=== PATIENT | male | born 1950 | race Caucasian/White ===

== ENCOUNTER 2018-07-16 22:28 | Emergency (ER) | payer OTHER ==
[~2018-07-16] VITALS: Ht 175.3 cm; Wt 81.6 kg
--- OUTSIDE RECORDS SUMMARY | 2018-07-16 22:36 | XMS REPORT ---
Author Author Gatito Laurent [facility] eClinicalWorks Address Unknown Phone Unavailable Care Team Providers Care Professor Of Kinesiology Name Role Phone Gatito Laurent CP Unavailable Allergies, Adverse Reactions, Alerts Substance Reaction Event Type Niaspan cold chills Non Drug Allergy Tricor Made his back hurt Non Drug Allergy Lipitor Leg Cramps Non Drug Allergy Crestor Leg Cramps Non Drug Allergy Problems Problem Type Condition Code Onset Dates Condition Status Assessment SD CERVIC REG 739.1 Active Problem BACK PAIN, LOW 724.2 Active Problem CAD Unspecified type of vessel 414.00 Active Problem Costochondritis 733.6 Active Assessment SD UPPER EXTR 739.7 Active Problem Spasm of muscle 728.85 Active Problem Back pain 724.5 Active Problem Dyslipidemia 272.9 Active Problem Myositis 729.1 Active Problem RASH NOS 782.1 Active Problem otitis externa, chronic 380.23 Active Assessment SD PELVIC REG 739.5 Active Assessment SD LUMBAR REG 739.3 Active Assessment SD THORAC REG 739.2 Active Assessment SD SACRAL REG 739.4 Active Assessment Screening PSA V76.44 Active Assessment Dyslipidemia 272.9 Active Assessment SD LOWER EXTR 739.6 Active Assessment CAD Unspecified type of vessel 414.00 Active Assessment SD HEAD REGION 739.0 Active Assessment Back pain 724.5 Active Medications Medication Code System Code Instructions Start Date End Date Status Dosage Simcor NDC 0 500mg/20mg po once daily Apr 17, 2008 1 metoprolol NDC 93760 50 mg orally QD September 16, 2011 1 tab(s) ciprofloxacin-hydrocortisone otic NDC 74830 0.2%-1% in each affected ear 2 times a day Mar 03, 2012 3 gtt [place] 3/6/9/ NDC 0 Fish 800/Flax 800 [place].PrimroseBlk Current Borage Oil/ 400mg orally qd 1am- 1 pm Vitamin E NDC 0 500 IU Orally qd 1 Soma NDC 1329 250 mg orally QID September 16, 2008 1 tab(s) Centrum NDC 8493 Therapeutic Multiple Vitamins with Minerals orally once a day 1 tab(s) Plavix NDC 27411 75 mg orally once a day 1 tab(s) Trilipix NDC 369980 135 mg orally once a day Feb 03, 2009 1 cap(s) Vitamin A NDC 0 8000 IU qd 1 cap Vitamin C with Demetria Hips NDC 8315 500 mg orally once a day 1 tab(s ) Aspirin Low Strength NDC 7555 81 mg orally once a day 1 tab(s) Vitamin D3 NDC 4871 4000 IU orally once a day 1 tab(s) famotidine NDC 83758 20 mg orally PRN 1 tab(s) Magnesium NDC 0 300/40/10 mg Orally qd 1 cap Benicar HCT NDC 69489 12.5 mg-20 mg orally once a day 1 tab(s) Co-Q10 NDC 18661 100 mg orally once a day 1 cap(s) Procedures Procedure Coding System Code Date GENERAL HEALTH PANEL Proc. CPT-4 57500 Mar 06, 2012 LIPID PANEL Proc. CPT-4 17604 Mar 06, 2012 OMT 7-8 Regions CPT-4 52921 Mar 06, 2012 venipuncture VENOUS BLD VENIPProc. CPT-4 76013 Mar 06, 2012 PROSTATE SPECIFIC ANTIGEN; TOProc. CPT-4 80465 Mar 06, 2012 Vital Signs Date/Time: Mar 06, 2012 Temperature 96.9 F Weight 196.4 lbs Height 68 in Respiratory Rate 16 /min Pulse 88 /min Blood Pressure Diastolic 64 mm Hg Blood Pressure Systolic 110 mm Hg BMI 29.86 Index Results No Known Results Summary Purpose eClinicalWorks Submission
--- OUTSIDE RECORDS SUMMARY | 2018-07-16 22:36 | XMS REPORT ---
Author Gatito Sher [facility] eClinicalWorks Address Unknown Phone Unavailable Care Team Providers Care Supervisor Mechanic Boilermaking Name Role Phone Gatito Laurent CP Unavailable Allergies, Adverse Reactions, Alerts Substance Reaction Event Type N.K.D.A. Info Not Available Non Drug Allergy Problems Problem Type Condition Code Onset Dates Condition Status Assessment SD CERVIC REG 739.1 Active Assessment RASH NOS 782.1 Active Assessment SD LOWER EXTR 739.6 Active Problem otitis externa, chronic 380.23 Active Problem Dyslipidemia 272.9 Active Problem RASH NOS 782.1 Active Problem CAD Unspecified type of vessel 414.00 Active Assessment SD LUMBAR REG 739.3 Active Problem Myositis 729.1 Active Problem BACK PAIN, LOW 724.2 Active Assessment SD HEAD REGION 739.0 Active Assessment SD THORAC REG 739.2 Active Assessment Bursitis of hip 726.5 Active Assessment SD SACRAL REG 739.4 Active Assessment BACK PAIN, LOW 724.2 Active Assessment SD PELVIC REG 739.5 Active Medications Medication Code System Code Instructions Start Date End Date Status Dosage Coral Calcium NDC 0 250/50IU/125mg orally qd 1 Centrum NDC 8493 Therapeutic Multiple Vitamins with Minerals orally once a day 1 tab(s) metoprolol NDC 27769 50 mg orally once a day 1 tab(s) Plavix NDC 16294 75 mg orally once a day 1 tab(s) Benicar HCT NDC 00959 12.5 mg-20 mg orally once a day 1 tab(s) Vitamin C with Demetria Hips NDC 8315 500 mg orally once a day 1 tab(s ) potassium NDC 0 90mg orally qd 1 Crestor NDC 34603 10 mg orally once a day (at bedtime) December 06, 2007 1 tab(s) Lovaza NDC 425429 1 g oral BID 1 capsules Lotrisone NDC 1293 0.05%-1% applied topically BID-PRN 1 giovanni Aspirin Low Strength NDC 7555 81 mg orally once a day 1 tab(s) Vitamin E NDC 0 1000IU Orally qd 1 Procedures Procedure Coding System Code Date OMT 7-8 Regions CPT-4 26781 Jan 10, 2008 OFC/OUTPT E&M ESTAB MINOR 10 Proc. CPT-4 69727 Jan 10, 2008 Vital Signs Date/Time: Jan 10, 2008 Temperature 97.0 F Weight 200.4 lbs Height 69 in Respiratory Rate 12 /min Pulse 72 /min Blood Pressure Diastolic 90 mm Hg Blood Pressure Systolic 110 mm Hg BMI 29.59 Index Results No Known Results Summary Purpose eClinicalWorks Submission
--- OUTSIDE RECORDS SUMMARY | 2018-07-16 22:36 | XMS REPORT ---
Author Reyna Saul [facility] eClinicalWorks Address Unknown Phone Unavailable Care Team Providers Care Medical Research Associate Name Role Phone Reyna Forbes CP Unavailable Allergies, Adverse Reactions, Alerts Substance Reaction Event Type Niaspan cold chills Non Drug Allergy Tricor Made his back hurt Non Drug Allergy Lipitor Leg Cramps Non Drug Allergy Crestor Leg Cramps Non Drug Allergy Problems Problem Type Condition Code Onset Dates Condition Status Assessment Perforation of ear drum NOS 384.20 Active Problem BACK PAIN, LOW 724.2 Active Problem CAD Unspecified type of vessel 414.00 Active Problem Costochondritis 733.6 Active Problem Spasm of muscle 728.85 Active Problem Back pain 724.5 Active Problem Dyslipidemia 272.9 Active Problem Myositis 729.1 Active Problem RASH NOS 782.1 Active Problem otitis externa, chronic 380.23 Active Medications Medication Code System Code Instructions Start Date End Date Status Dosage Co-Q10 NDC 59879 100 mg orally once a day 1 cap(s) Magnesium NDC 0 300/40/10 mg Orally qd 1 cap Aspirin Low Strength NDC 7555 81 mg orally once a day 1 tab(s) Trilipix NDC 985319 135 mg orally once a day Feb 03, 2009 1 cap(s) famotidine NDC 61787 20 mg orally PRN 1 tab(s) Vitamin C with Demetria Hips NDC 8315 500 mg orally once a day 1 tab(s ) Vitamin A NDC 0 8000 IU qd 1 cap Omnicef NDC 29031 300 mg orally QD August 24, 2011 2 cap(s) Vitamin E NDC 0 500 IU Orally qd 1 metoprolol NDC 01445 50 mg orally QD September 16, 2011 1 tab(s) Simcor NDC 0 500mg/20mg po once daily Apr 17, 2008 1 Benicar HCT NDC 41811 12.5 mg-20 mg orally once a day 1 tab(s) Vitamin D3 NDC 4871 4000 IU orally once a day 1 tab(s) Soma NDC 1329 250 mg orally QID September 16, 2008 1 tab(s) Centrum NDC 8493 Therapeutic Multiple Vitamins with Minerals orally once a day 1 tab(s) [place] 3/6/9/ NDC 0 Fish 800/Flax 800 [place].PrimroseBlk Current Borage Oil/ 400mg orally qd 1am- 1 pm Floxin Otic NDC 64918 0.3% in each affected ear 2 times a day September 27, 2011 10 gtt Plavix NDC 66475 75 mg orally once a day 1 tab(s) Procedures Procedure Coding System Code Date OFC/OUTPT E&M ESTAB LOW-MOD 1Proc. CPT-4 55349 October 07, 2011 Vital Signs Date/Time: October 07, 2011 Blood Pressure Systolic 130 mm Hg Temperature 96.8 F Weight 192.6 lbs Respiratory Rate 16 /min Pulse 70 /min Blood Pressure Diastolic 64 mm Hg Results No Known Results Summary Purpose eClinicalWorks Submission
--- OUTSIDE RECORDS SUMMARY | 2018-07-16 22:36 | XMS REPORT | Referral Summary ---
Author Organization Unknown Address Unknown Phone Unavailable Care Team Providers Care Back Tender Cloth Printing Name Role Phone No PCP, Pt States PCP Encounter VC Date(s): 08/29/14 - 08/29/14 [facility] [address] [place] [id number] Discharge Disposition: Home or Self Care Attending Physician: Matias Zapien MD Admitting Physician: Matias Zapien MD Vital Signs Most recent to 1 oldest [Reference Range]: Temperature Temporal 36.6 degC Artery [36.3-37.8 (08/29/14 3:30 PM) degC] Peripheral Pulse 70 bpm Rate [60-100 bpm] (08/29/14 2:21 PM) Heart Rate Monitored 66 bpm [60-100 bpm] (08/29/14 3:30 PM) Respiratory Rate 18 br/min [14-20 br/min] (08/29/14 3:30 PM) Blood Pressure 129/72 mmHg [90-140/60-90 mmHg] (08/29/14 3:30 PM) Most recent to 1 oldest [Reference Range]: SpO2 97 % (08/29/14 3:30 PM) Problem List Condition Effective Dates Status Health Status Informant Arthritis(Confirmed) Active patient Atrial Active patient fibrillation(Confirm ed) Heart Active patient attack(Confirmed) Peptic reflux Active patient disease(Confirmed) Tobacco Active patient user(Confirmed) Allergies, Adverse Reactions, Alerts No Known Allergies Medications Benicar HCT 20 mg-12.5 mg oral tablet 1 tabs, Oral, Daily, 0 Refill(s) Start Date: 08/29/14 Status: Ordered Eliquis 2.5 mg, Oral, BID, 0 Refill(s) Start Date: 08/29/14 Status: Ordered metoprolol tartrate 50 mg oral tablet 1 tabs, Oral, Daily, 0 Refill(s) Start Date: 08/29/14 Status: Ordered Plavix 75 mg oral tablet 1 tabs, Oral, Daily, 0 Refill(s) Start Date: 08/29/14 Status: Ordered Simcor 500 mg-20 mg oral tablet, extended release 1 tabs, Oral, Bedtime (once a day), 0 Refill(s) Start Date: 08/29/14 Status: Ordered Soma 250 mg, Oral, QID, as needed for pain, 0 Refill(s) Start Date: 08/29/14 Status: Ordered Results No data available for this section Immunizations No data available for this section Procedures Procedure Date Related Diagnosis Body Site Arthroscopy of knee1 Cardiac catheterization cardiac stents2 Carpal tunnel Elbow3 Tonsil 1bilateral 2x3 3bilateral Social History Social History Type Response Smoking Status Former smoker Assessment and Plan No data available for this section
--- OUTSIDE RECORDS SUMMARY | 2018-07-16 22:36 | XMS REPORT ---
Author Gatito Sher [facility] eClinicalWorks Address Unknown Phone Unavailable Care Team Providers Care Gis Scientist Name Role Phone Gatito Laurent CP Unavailable Allergies, Adverse Reactions, Alerts Substance Reaction Event Type Niaspan cold chills Non Drug Allergy Tricor Made his back hurt Non Drug Allergy Lipitor Leg Cramps Non Drug Allergy Crestor Leg Cramps Non Drug Allergy Problems Problem Type Condition Code Onset Dates Condition Status Assessment SD Abd & other 739.9 Active Assessment SD LUMBAR REG 739.3 Active Assessment zCal Mag Spasm of Muscle 728.85 Active Problem RASH NOS 782.1 Active Problem otitis externa, chronic 380.23 Active Problem Spasm of muscle 728.85 Active Problem BACK PAIN, LOW 724.2 Active Problem CAD Unspecified type of vessel 414.00 Active Problem Dyslipidemia 272.9 Active Problem Myositis 729.1 Active Assessment Restless Leg Syndrome 333.99 Active Assessment SD LOWER EXTR 739.6 Active Assessment BACK PAIN, LOW 724.2 Active Assessment SD SACRAL REG 739.4 Active Assessment SD THORAC REG 739.2 Active Assessment SD CERVIC REG 739.1 Active Assessment SD UPPER EXTR 739.7 Active Assessment SD PELVIC REG 739.5 Active Assessment SD HEAD REGION 739.0 Active Medications Medication Code System Code Instructions Start Date End Date Status Dosage Trilipix NDC 601319 135 mg orally once a day Feb 03, 2009 1 cap(s) Plavix NDC 76905 75 mg orally once a day 1 tab(s) famotidine NDC 21136 20 mg orally PRN 1 tab(s) Vitamin C with Demetria Hips NDC 8315 500 mg orally once a day 1 tab(s ) Benicar HCT NDC 99428 12.5 mg-20 mg orally once a day 1 tab(s) Simcor NDC 0 500mg/20mg po once daily Apr 17, 2008 1 Co-Q10 NDC 37523 100 mg orally once a day 1 cap(s) [place] 3/6/9/ NDC 0 Fish 800/Flax 800 [place].PrimroseBlk Current Borage Oil/ 400mg orally qd 1am- 1 pm Coral Calcium NDC 0 250/50IU/125mg orally qd 1 Centrum NDC 8493 Therapeutic Multiple Vitamins with Minerals orally once a day 1 tab(s) Zetia NDC 43198 10 mg orally once a day Feb 09, 2010 1 tab(s) Aspirin Low Strength NDC 7555 81 mg orally once a day 1 tab(s) Vitamin D3 NDC 4871 4000 IU orally once a day 1 tab(s) metoprolol NDC 35951 50 mg orally QD 1 tab(s) Soma NDC 1329 250 mg orally QID September 16, 2008 1 tab(s) Vitamin E NDC 0 500 IU Orally qd 1 Procedures Procedure Coding System Code Date Admin; intravenous push, single or initial substance/drug CPT-4 95705 Apr Admin of IV; each additional sequential intravenous push of a new substance/ drug CPT-4 33117 Apr 15, 2010 OMT 7-8 Regions CPT-4 70655 Apr 15, 2010 INJ Magnesium CPT-4 J3475 Apr 15, 2010 Calcium Gluconate per 10ml CPT-4 J0610 Apr 15, 2010 Vital Signs Date/Time: Apr 15, 2010 Blood Pressure Systolic 112 mm Hg Temperature 96.1 F Weight 198.4 lbs Respiratory Rate 16 /min Pulse 80 /min Blood Pressure Diastolic 60 mm Hg Results No Known Results Summary Purpose eClinicalWorks Submission
--- OUTSIDE RECORDS SUMMARY | 2018-07-16 22:37 | XMS REPORT ---
Author Gatito Sher [facility] eClinicalWorks Address Unknown Phone Unavailable Care Team Providers Care Cultural Centre Manager Name Role Phone Gatito Laurent CP Unavailable Allergies, Adverse Reactions, Alerts Substance Reaction Event Type N.K.D.A. Info Not Available Non Drug Allergy Problems Problem Type Condition Code Onset Dates Condition Status Assessment SD CERVIC REG 739.1 Active Assessment Bursitis of hip 726.5 Active Assessment SD LUMBAR REG 739.3 Active Problem otitis externa, chronic 380.23 Active Problem Dyslipidemia 272.9 Active Problem RASH NOS 782.1 Active Problem CAD Unspecified type of vessel 414.00 Active Assessment RASH NOS 782.1 Active Problem Myositis 729.1 Active Problem BACK PAIN, LOW 724.2 Active Assessment SD THORAC REG 739.2 Active Assessment SD SACRAL REG 739.4 Active Assessment BACK PAIN, LOW 724.2 Active Assessment SD PELVIC REG 739.5 Active Assessment SD HEAD REGION 739.0 Active Assessment SD LOWER EXTR 739.6 Active Medications Medication Code System Code Instructions Start Date End Date Status Dosage Plavix NDC 57524 75 mg orally once a day 1 tab(s) Coral Calcium NDC 0 250/50IU/125mg orally qd 1 Vitamin C with Demetria Hips NDC 8315 500 mg orally once a day 1 tab(s ) potassium NDC 0 90mg orally qd 1 metoprolol NDC 76081 50 mg orally once a day 1 tab(s) nystatin-triamcinolone topical NDC 97237 366531 units/g-0.1% applied topically TID Dec 18, 2007 1 giovanni Centrum NDC 8493 Therapeutic Multiple Vitamins with Minerals orally once a day 1 tab(s) Aspirin Low Strength NDC 7555 81 mg orally once a day 1 tab(s) Benicar HCT NDC 97527 12.5 mg-20 mg orally once a day 1 tab(s) Vitamin E NDC 0 1000IU Orally qd 1 Lovaza NDC 350039 1 g oral BID 1 capsules Crestor NDC 85557 10 mg orally once a day (at bedtime) December 06, 2007 1 tab(s) Lotrisone NDC 1293 0.05%-1% applied topically BID-PRN 1 giovanni Procedures Procedure Coding System Code Date OMT 7-8 Regions CPT-4 75412 Dec 18, 2007 ARTHROCENTESIS-Large Jt CPT-4 58440 Dec 18, 2007 OFC/OUTPT E&M ESTAB LOW-MOD 1Proc. CPT-4 38934 Dec 18, 2007 Kenalog per 10mg (x4 units) CPT-4 J3301 Dec 18, 2007 Dexamethasone 4mg/ml CPT-4 J1094 Dec 18, 2007 Vital Signs Date/Time: Dec 18, 2007 Temperature 97.0 F Weight 202 lbs Height 69 in Respiratory Rate 18 /min Pulse 86 /min Blood Pressure Diastolic 76 mm Hg Blood Pressure Systolic 126 mm Hg BMI 29.83 Index Results No Known Results Summary Purpose eClinicalWorks Submission
--- OUTSIDE RECORDS SUMMARY | 2018-07-16 22:37 | XMS REPORT ---
Author Gatito Sher [facility] eClinicalWorks Address Unknown Phone Unavailable Care Team Providers Care Art Sales Consultant Name Role Phone Gatito Laurent CP Unavailable Allergies, Adverse Reactions, Alerts Substance Reaction Event Type N.K.D.A. Info Not Available Non Drug Allergy Problems Problem Type Condition Code Onset Dates Condition Status Assessment SD SACRAL REG 739.4 Active Assessment SD LUMBAR REG 739.3 Active Assessment SD PELVIC REG 739.5 Active Assessment Myositis 729.1 Active Assessment SD THORAC REG 739.2 Active Problem BACK PAIN, LOW 724.2 Active Problem CAD Unspecified type of vessel 414.00 Active Problem Myositis 729.1 Active Assessment SD CERVIC REG 739.1 Active Assessment SD HEAD REGION 739.0 Active Assessment BACK PAIN, LOW 724.2 Active Assessment SD Abd & other 739.9 Active Medications Medication Code System Code Instructions Start Date End Date Status Dosage Aspirin Low Strength NDC 7555 81 mg orally once a day 1 tab(s) Vitamin C with Demetria Hips NDC 8315 500 mg orally once a day 1 tab(s ) Coral Calcium NDC 0 250/50IU/125mg orally qd 1 Centrum NDC 8493 Therapeutic Multiple Vitamins with Minerals orally once a day 1 tab(s) Lipitor NDC 6419 20 mg orally once a day 1 tab(s) metoprolol NDC 16226 50 mg orally once a day 1 tab(s) Lotrisone NDC 1293 0.05%-1% applied topically BID-PRN 1 giovanni potassium NDC 0 90mg orally qd 1 Vitamin E NDC 0 1000IU Orally qd 1 Lovaza NDC 211903 1 g oral BID 1 capsules Plavix NDC 30511 75 mg orally once a day 1 tab(s) Benicar HCT NDC 37988 12.5 mg-20 mg orally once a day 1 tab(s) Procedures Procedure Coding System Code Date Hot Pack CPT-4 64329 October 12, 2007 OMT 7-8 Regions CPT-4 32059 October 12, 2007 Vital Signs Date/Time: October 12, 2007 Temperature 98.8 F Weight 204.8 lbs Height 69 in Respiratory Rate 12 /min Pulse 80 /min Blood Pressure Diastolic 76 mm Hg Blood Pressure Systolic 108 mm Hg BMI 30.24 Index Results No Known Results Summary Purpose eClinicalWorks Submission
--- OUTSIDE RECORDS SUMMARY | 2018-07-16 22:37 | XMS REPORT ---
Author Reyna Saul [facility] eClinicalWorks Address Unknown Phone Unavailable Care Team Providers Care Soap Chipper Name Role Phone Reyna Forbes CP Unavailable Allergies, Adverse Reactions, Alerts Substance Reaction Event Type Niaspan cold chills Non Drug Allergy Tricor Made his back hurt Non Drug Allergy Lipitor Leg Cramps Non Drug Allergy Crestor Leg Cramps Non Drug Allergy Problems Problem Type Condition Code Onset Dates Condition Status Assessment OPEN WOUND OF EAR DRUM 872.61 Active Problem BACK PAIN, LOW 724.2 Active Problem CAD Unspecified type of vessel 414.00 Active Assessment Perforation of ear drum NOS 384.20 Active Problem Costochondritis 733.6 Active Problem Spasm of muscle 728.85 Active Problem Back pain 724.5 Active Problem Dyslipidemia 272.9 Active Problem Myositis 729.1 Active Problem RASH NOS 782.1 Active Problem otitis externa, chronic 380.23 Active Medications Medication Code System Code Instructions Start Date End Date Status Dosage Vitamin C with Demetria Hips NDC 8315 500 mg orally once a day 1 tab(s ) Trilipix NDC 406738 135 mg orally once a day Feb 03, 2009 1 cap(s) Benicar HCT NDC 84780 12.5 mg-20 mg orally once a day 1 tab(s) Simcor NDC 0 500mg/20mg po once daily Apr 17, 2008 1 Omnicef NDC 34404 300 mg orally QD August 24, 2011 2 cap(s) Vitamin D3 NDC 4871 4000 IU orally once a day 1 tab(s) Soma NDC 1329 250 mg orally QID September 16, 2008 1 tab(s) Co-Q10 NDC 52846 100 mg orally once a day 1 cap(s) Floxin Otic NDC 98616 0.3% in each affected ear 2 times a day September 27, 2011 10 gtt [place] 3/6/9/ NDC 0 Fish 800/Flax 800 [place].PrimroseBlk Current Borage Oil/ 400mg orally qd 1am- 1 pm Vitamin A NDC 0 8000 IU qd 1 cap Centrum NDC 8493 Therapeutic Multiple Vitamins with Minerals orally once a day 1 tab(s) Vitamin E NDC 0 500 IU Orally qd 1 Magnesium NDC 0 300/40/10 mg Orally qd 1 cap famotidine NDC 74882 20 mg orally PRN 1 tab(s) Aspirin Low Strength NDC 7555 81 mg orally once a day 1 tab(s) Plavix NDC 34719 75 mg orally once a day 1 tab(s) metoprolol NDC 57477 50 mg orally QD September 16, 2011 1 tab(s) Procedures Procedure Coding System Code Date OFC/OUTPT E&M ESTAB LOW-MOD 1Proc. CPT-4 62785 September 30, 2011 Vital Signs Date/Time: September 30, 2011 Blood Pressure Systolic 112 mm Hg Temperature 96.9 F Weight 193.2 lbs Respiratory Rate 16 /min Pulse 80 /min Blood Pressure Diastolic 70 mm Hg Results No Known Results Summary Purpose eClinicalWorks Submission
--- OUTSIDE RECORDS SUMMARY | 2018-07-16 22:37 | XMS REPORT ---
Author Gatito Sher [facility] eClinicalWorks Address Unknown Phone Unavailable Care Team Providers Care Shoe Stamper Name Role Phone Gatito Laurent CP Unavailable Allergies, Adverse Reactions, Alerts Substance Reaction Event Type N.K.D.A. Info Not Available Non Drug Allergy Problems Problem Type Condition Code Onset Dates Condition Status Assessment SD LUMBAR REG 739.3 Active Assessment SD CERVIC REG 739.1 Active Assessment SD LOWER EXTR 739.6 Active Problem Dyslipidemia 272.9 Active Problem Myositis 729.1 Active Problem otitis externa, chronic 380.23 Active Assessment otitis externa, chronic 380.23 Active Assessment DYSLIPIDEMIA NOS 272.9 Active Problem BACK PAIN, LOW 724.2 Active Problem CAD Unspecified type of vessel 414.00 Active Assessment Myositis 729.1 Active Assessment SD UPPER EXTR 739.7 Active Assessment SD THORAC REG 739.2 Active Assessment SD HEAD REGION 739.0 Active Assessment SD SACRAL REG 739.4 Active Assessment BACK PAIN, LOW 724.2 Active Assessment SD PELVIC REG 739.5 Active Medications Medication Code System Code Instructions Start Date End Date Status Dosage metoprolol NDC 20426 50 mg orally once a day 1 tab(s) Coral Calcium NDC 0 250/50IU/125mg orally qd 1 Centrum ND 8493 Therapeutic Multiple Vitamins with Minerals orally once a day 1 tab(s) Plavix NDC 26908 75 mg orally once a day 1 tab(s) Lovaza NDC 120234 1 g oral BID 1 capsules Keflex NDC 1271 500 mg orally BID December 06, 2007 2 caps Vitamin E NDC 0 1000IU Orally qd 1 potassium NDC 0 90mg orally qd 1 Vitamin C with Demetria Hips NDC 8315 500 mg orally once a day 1 tab(s ) Crestor NDC 43675 10 mg orally once a day (at bedtime) December 06, 2007 1 tab([place]) [place] [address] 12.5 mg-20 mg orally once a day 1 tab(s) Lotrisone NDC 1293 0.05%-1% applied topically BID-PRN 1 giovanni Aspirin Low Strength NDC 7555 81 mg orally once a day 1 tab(s) Procedures Procedure Coding System Code Date OMT 11-20 Regions CPT-4 08476 December 06, 2007 OFC/OUTPT E&M ESTAB LOW-MOD 1Proc. CPT-4 18520 December 06, 2007 Vital Signs Date/Time: December 06, 2007 Temperature 97.6 F Weight 203.0 lbs Height 69 in Respiratory Rate 16 /min Pulse 84 /min Blood Pressure Diastolic 68 mm Hg Blood Pressure Systolic 108 mm Hg BMI 29.97 Index Results No Known Results Summary Purpose eClinicalWorks Submission
--- OUTSIDE RECORDS SUMMARY | 2018-07-16 22:37 | XMS REPORT ---
Author Gatito Sher [facility] eClinicalWorks Address Unknown Phone Unavailable Care Team Providers Care Him Coder Name Role Phone Gatito Laurent CP Unavailable Allergies, Adverse Reactions, Alerts Substance Reaction Event Type N.K.D.A. Info Not Available Non Drug Allergy Problems Problem Type Condition Code Onset Dates Condition Status Assessment BACK PAIN, LOW 724.2 Active Assessment SD SACRAL REG 739.4 Active Assessment SD THORAC REG 739.2 Active Problem CAD Unspecified type of vessel 414.00 Active Assessment SKIN DISORDER NOS 709.9 Active Problem BACK PAIN, LOW 724.2 Active Assessment SD LUMBAR REG 739.3 Active Assessment SD PELVIC REG 739.5 Active Assessment SD CERVIC REG 739.1 Active Assessment SD HEAD REGION 739.0 Active Medications Medication Code System Code Instructions Start Date End Date Status Dosage metoprolol NDC 87023 50 mg orally once a day 1 tab(s) Vitamin E NDC 0 1000IU Orally qd 1 Flax Seed Oil NDC 0 1000mg orally TID 1 cap omega-3 polyunsaturated fatty acids NDC 83619 multi [place] 800mg orally QD 3 Lipitor NDC 6419 20 mg orally once a day 1 tab(s) potassium NDC 0 90mg orally qd 1 Coral Calcium NDC 0 250/50IU/125mg orally qd 1 Lotrisone NDC 1293 0.05%-1% applied topically BID 1 giovanni Benicar HCT NDC 62296 12.5 mg-20 mg orally once a day 1 tab(s) Aspirin Low Strength NDC 7555 81 mg orally once a day 1 tab(s) Centrum NDC 8493 Therapeutic Multiple Vitamins with Minerals orally once a day 1 tab(s) Plavix NDC 11211 75 mg orally once a day 1 tab(s) Vitamin C with Demetria Hips NDC 8315 500 mg orally once a day 1 tab(s ) Procedures Procedure Coding System Code Date OMT 5-6 Regions CPT-4 94035 August 14, 2007 OFC/OUTPT E&M ESTAB MINOR 10 Proc. CPT-4 07603 August 14, 2007 Vital Signs Date/Time: August 14, 2007 Temperature 98.4 F Weight 200.4 lbs Height 69 in Respiratory Rate 18 /min Pulse 80 /min Blood Pressure Diastolic 82 mm Hg Blood Pressure Systolic 122 mm Hg BMI 29.59 Index Results No Known Results Summary Purpose eClinicalWorks Submission
--- OUTSIDE RECORDS SUMMARY | 2018-07-16 22:37 | XMS REPORT ---
Author Gatito Sher [facility] eClinicalWorks Address Unknown Phone Unavailable Care Team Providers Care Supervisor Press Room Name Role Phone Gatito Laurent CP Unavailable Allergies, Adverse Reactions, Alerts Substance Reaction Event Type Lipitor Leg Cramps Non Drug Allergy Crestor Leg Cramps Non Drug Allergy Problems Problem Type Condition Code Onset Dates Condition Status Assessment SD CERVIC REG 739.1 Active Assessment Dyslipidemia 272.9 Active Assessment Myositis 729.1 Active Problem otitis externa, chronic 380.23 Active Problem Dyslipidemia 272.9 Active Problem RASH NOS 782.1 Active Problem CAD Unspecified type of vessel 414.00 Active Assessment SD LUMBAR REG 739.3 Active Problem Myositis 729.1 Active Problem BACK PAIN, LOW 724.2 Active Assessment Bursitis of hip 726.5 Active Assessment SD THORAC REG 739.2 Active Assessment SD SACRAL REG 739.4 Active Assessment SD HEAD REGION 739.0 Active Assessment SD PELVIC REG 739.5 Active Assessment BACK PAIN, LOW 724.2 Active Assessment SD LOWER EXTR 739.6 Active Medications Medication Code System Code Instructions Start Date End Date Status Dosage potassium NDC 0 90mg orally qd 1 metoprolol NDC 08257 50 mg orally once a day 1 tab(s) Rhodiola NDC 0 410 mg Orally QD 1 Plavix NDC 57038 75 mg orally once a day 1 tab(s) Vitamin C with Demetria Hips NDC 8315 500 mg orally once a day 1 tab(s ) Aspirin Low Strength NDC 7555 81 mg orally once a day 1 tab(s) Lotrisone NDC 1293 0.05%-1% applied topically BID-PRN 1 giovanni Lovaza NDC 900565 1 g oral BID 1 capsules nystatin-triamcinolone topical NDC 95595 480787 units/g-0.1% applied topically TID 1 giovanni Coral Calcium NDC 0 250/50IU/125mg orally qd 1 Benicar HCT NDC 28655 12.5 mg-20 mg orally once a day 1 tab(s) Vitamin E NDC 0 1000IU Orally qd 1 Centrum NDC 8493 Therapeutic Multiple Vitamins with Minerals orally once a day 1 tab(s) Procedures Procedure Coding System Code Date OMT 11-20 [facility] CPT-4 09480 Jan 29, 2008 OFC/OUTPT E&M ESTAB MINOR 10 Proc. CPT-4 21670 Jan 29, 2008 Vital Signs Date/Time: Jan 29, 2008 Temperature 98.1 F Weight 193.8 lbs Height 69 in Respiratory Rate 14 /min Pulse 76 /min Blood Pressure Diastolic 78 mm Hg Blood Pressure Systolic 130 mm Hg BMI 28.62 Index Results No Known Results Summary Purpose eClinicalWorks Submission
--- OUTSIDE RECORDS SUMMARY | 2018-07-16 22:37 | XMS REPORT ---
Author Gatito Sher [facility] eClinicalWorks Address Unknown Phone Unavailable Care Team Providers Care Independent Living Specialist Name Role Phone Gatito Laurent CP Unavailable Allergies, Adverse Reactions, Alerts Substance Reaction Event Type N.K.D.A. Info Not Available Non Drug Allergy Problems Problem Type Condition Code Onset Dates Condition Status Assessment SD UPPER EXTR 739.7 Active Assessment SD SACRAL REG 739.4 Active Assessment SD THORAC REG 739.2 Active Assessment HTN BENIGN 401.1 Active Assessment RASH NOS 782.1 Active Problem CAD Unspecified type of vessel 414.00 Active Assessment BACK PAIN, LOW 724.2 Active Problem BACK PAIN, LOW 724.2 Active Assessment SD LUMBAR REG 739.3 Active Assessment SD PELVIC REG 739.5 Active Assessment SD CERVIC REG 739.1 Active Assessment SD LOWER EXTR 739.6 Active Medications Medication Code System Code Instructions Start Date End Date Status Dosage Lipitor NDC 6419 20 mg orally once a day 1 tab(s) Coral Calcium NDC 0 250/50IU/125mg orally qd 1 Lotrisone NDC 1293 0.05%-1% applied topically BID 1 giovanni Vitamin E NDC 0 1000IU Orally qd 1 Plavix NDC 92726 75 mg orally once a day 1 tab(s) omega-3 polyunsaturated fatty acids NDC 99432 multi [place] 800mg orally QD 3 potassium NDC 0 90mg orally qd 1 Vitamin C with Demetria Hips NDC 8315 500 mg orally once a day 1 tab(s ) Flax Seed Oil NDC 0 1000mg orally TID 1 cap Aspirin Low Strength NDC 7555 81 mg orally once a day 1 tab(s) Centrum NDC 8493 Therapeutic Multiple Vitamins with Minerals orally once a day 1 tab(s) metoprolol NDC 94597 50 mg orally once a day 1 tab(s) Benicar HCT NDC 28044 12.5 mg-20 mg orally once a day 1 tab(s) Procedures Procedure Coding System Code Date OMT 7-8 Regions CPT-4 27380 July 31, 2007 Vital Signs Date/Time: July 31, 2007 Blood Pressure Systolic 118 mm Hg Temperature 97.1 F Weight 199 lbs Respiratory Rate 16 /min Pulse 66 /min Blood Pressure Diastolic 74 mm Hg Results No Known Results Summary Purpose eClinicalWorks Submission
--- OUTSIDE RECORDS SUMMARY | 2018-07-16 22:38 | XMS REPORT ---
Author Reyna Saul [facility] eClinicalWorks Address Unknown Phone Unavailable Care Team Providers Care Beam Department Supervisor Name Role Phone Reyna Forbes CP Unavailable [...] Date End Date Status Dosage Plavix NDC 62216 75 mg orally once a day 1 tab(s) Aspirin Low Strength NDC 7555 81 mg orally once a day 1 tab(s) Benicar HCT NDC 15563 12.5 mg-20 mg orally once a day 1 tab(s) Magnesium NDC 0 300/40/10 mg Orally qd 1 cap Omnicef NDC 51498 300 mg orally QD August 24, 2011 2 cap(s) Vitamin D3 NDC 4871 4000 IU orally once a day 1 tab(s) Vitamin C with Demetria Hips NDC 8315 500 mg orally once a day 1 tab(s ) Floxin Otic NDC 94355 0.3% in each affected ear 2 times a day September 27, 2011 10 gtt famotidine NDC 02404 20 mg orally PRN 1 tab(s) Simcor NDC 0 500mg/20mg po once daily Apr 17, 2008 1 metoprolol NDC 87437 50 mg orally QD September 16, 2011 1 tab(s) Centrum NDC 8493 Therapeutic Multiple Vitamins with Minerals orally once a day 1 tab(s) Vitamin E NDC 0 500 IU Orally qd 1 Vitamin A NDC 0 8000 IU qd 1 cap Co-Q10 NDC 03907 100 mg orally once a day 1 cap(s) Soma NDC 1329 250 mg orally QID September 16, 2008 1 tab(s) Trilipix NDC 178478 135 mg orally once a day Feb 03, 2009 1 cap(s) [place] 3/6/9/ NDC 0 Fish 800/Flax 800 [place].PrimroseBlk Current Borage Oil/ 400mg orally qd 1am- 1 pm Procedures Procedure Coding System Code Date OFC/OUTPT E&M ESTAB LOW-MOD 1Proc. CPT-4 52041 October 14, 2011 Vital Signs Date/Time: October 14, 2011 Blood Pressure Systolic 108 mm Hg Temperature 96.7 F Weight 193.6 lbs Respiratory Rate 14 /min Pulse 60 /min Blood Pressure Diastolic 64 mm Hg Results No Known Results Summary Purpose eClinicalWorks Submission
--- OUTSIDE RECORDS SUMMARY | 2018-07-16 22:38 | XMS REPORT ---
Author Author Gatito Laurent [facility] eClinicalWorks Address Unknown Phone Unavailable Care Team Providers Care Press Maintainer Name Role Phone Gatito Laurent CP Unavailable Allergies, Adverse Reactions, Alerts Substance Reaction Event Type Lipitor Leg Cramps Non Drug Allergy Crestor Leg Cramps Non Drug Allergy Problems Problem Type Condition Code Onset Dates Condition Status Assessment SD LOWER EXTR 739.6 Active Assessment SD Abd & other 739.9 Active Assessment SD CERVIC REG 739.1 Active Problem otitis externa, chronic 380.23 Active Problem Dyslipidemia 272.9 Active Problem RASH NOS 782.1 Active Problem CAD Unspecified type of vessel 414.00 Active Assessment BACK PAIN, LOW 724.2 Active Problem Myositis 729.1 Active Problem BACK PAIN, LOW 724.2 Active Assessment SD THORAC REG 739.2 Active Assessment SD SACRAL REG 739.4 Active Assessment Bursitis of hip 726.5 Active Assessment SD PELVIC REG 739.5 Active Assessment SD HEAD REGION 739.0 Active Assessment SD LUMBAR REG 739.3 Active Medications Medication Code System Code Instructions Start Date End Date Status Dosage Vitamin C with Demetria Hips NDC 8315 500 mg orally once a day 1 tab(s ) metoprolol NDC 60832 50 mg orally once a day 1 tab(s) Vitamin E NDC 0 1000IU Orally qd 1 Rhodiola NDC 0 410 mg Orally QD 1 Lotrisone NDC 1293 0.05%-1% applied topically BID-PRN 1 giovanni nystatin-triamcinolone topical NDC 01924 044131 units/g-0.1% applied topically TID 1 giovanni Plavix NDC 07666 75 mg orally once a day 1 tab(s) potassium NDC 0 90mg orally qd 1 Lovaza NDC 763439 1 g oral BID 1 capsules Centrum NDC 9993 Therapeutic Multiple Vitamins with Minerals orally once a day 1 tab(s) Red Yeast Rice NDC 778680 600 mg orally once a day 2 cap(s) Benicar HCT NDC 01252 12.5 mg-20 mg orally once a day 1 tab(s) Aspirin Low Strength NDC 7555 81 mg orally once a day 1 tab(s) Coral Calcium NDC 0 250/50IU/125mg orally qd 1 Procedures Procedure Coding System Code Date OFC/OUTPT E&M ESTAB LOW-MOD 1Proc. CPT-4 88747 Feb 19, 2008 OMT 7-8 [facility] CPT-4 66907 Feb 19, 2008 Vital Signs Date/Time: Feb 19, 2008 Temperature 98.4 F Weight 191.8 lbs Height 69 in Respiratory Rate 14 /min Pulse 78 /min Blood Pressure Diastolic 72 mm Hg Blood Pressure Systolic 126 mm Hg BMI 28.32 Index Results No Known Results Summary Purpose eClinicalWorks Submission
--- OUTSIDE RECORDS SUMMARY | 2018-07-16 22:38 | XMS REPORT ---
Author Gatito Sher [facility] eClinicalWorks Address Unknown Phone Unavailable Care Team Providers Care Training Developer Name Role Phone Gatito Laurent CP Unavailable Allergies, Adverse Reactions, Alerts Substance Reaction Event Type Niaspan cold chills Non Drug Allergy Tricor Made his back hurt Non Drug Allergy Lipitor Leg Cramps Non Drug Allergy Crestor Leg Cramps Non Drug Allergy Problems Problem Type Condition Code Onset Dates Condition Status Assessment Costochondritis 733.6 Active Problem BACK PAIN, LOW 724.2 Active Problem CAD Unspecified type of vessel 414.00 Active Problem Costochondritis 733.6 Active Assessment SD RIB CAGE 739.8 Active Problem Spasm of muscle 728.85 Active Problem Back pain 724.5 Active Problem Dyslipidemia 272.9 Active Problem Myositis 729.1 Active Problem RASH NOS 782.1 Active Problem otitis externa, chronic 380.23 Active Assessment SD SACRAL REG 739.4 Active Assessment SD PELVIC REG 739.5 Active Assessment SD THORAC REG 739.2 Active Assessment SD UPPER EXTR 739.7 Active Assessment SD HEAD REGION 739.0 Active Assessment SD CERVIC REG 739.1 Active Assessment SD LUMBAR REG 739.3 Active Assessment zCal Mag Spasm of Muscle 728.85 Active Assessment SD LOWER EXTR 739.6 Active Assessment Back pain 724.5 Active Medications Medication Code System Code Instructions Start Date End Date Status Dosage metoprolol [facility] 34255 50 mg orally QD 1 tab(s) Trilipix ND 783708 135 mg orally once a day Feb 03, 2009 1 cap(s) [place] [address] 12.5 mg-20 mg orally once a day 1 tab(s) Centrum [facility] 8493 Therapeutic Multiple Vitamins with Minerals orally once a day 1 tab(s) Vitamin D3 ND 4871 4000 IU orally once a day 1 tab(s) [place] [address] 75 mg orally once a day 1 tab([place]) [place] [address] 100 mg orally once a day 1 cap(s) [place] 3/6/9/ NDC 0 Fish 800/Flax 800 [place].PrimroseBlk Current Borage Oil/ 400mg orally qd 1am- 1 pm Coral Calcium NDC 0 250/50IU/125mg orally qd 1 Vitamin E NDC 0 500 IU Orally qd 1 Zetia NDC 77429 10 mg orally once a day Feb 09, 2010 1 tab(s) Aspirin Low Strength NDC 7555 81 mg orally once a day 1 tab(s) famotidine NDC 99283 20 mg orally PRN 1 tab(s) Soma NDC 1329 250 mg orally QID September 16, 2008 1 tab(s) Simcor NDC 0 500mg/20mg po once daily Apr 17, 2008 1 Vitamin C with Demetria Hips NDC 8315 500 mg orally once a day 1 tab(s ) Procedures Procedure Coding System Code Date OMT 7-8 [facility] CPT-4 65428 May 04, 2010 Admin; intravenous push, single or initial substance/drug CPT-4 30293 Apr OFC/OUTPT E&M ESTAB MINOR 10 Proc. CPT-4 42667 May 04, 2010 Calcium Gluconate per 10ml CPT-4 J0610 May 04, 2010 Admin of IV; each additional sequential intravenous push of a new substance/ drug CPT-4 26783 May 04, 2010 INJ Magnesium CPT-4 J3475 May 04, 2010 Vital Signs Date/Time: May 04, 2010 Temperature 96.9 F Weight 200.4 lbs Height 68 in Respiratory Rate 16 /min Pulse 88 /min Blood Pressure Diastolic 68 mm Hg Blood Pressure Systolic 116 mm Hg BMI 30.47 Index Results No Known Results Summary Purpose eClinicalWorks Submission
--- OUTSIDE RECORDS SUMMARY | 2018-07-16 22:38 | XMS REPORT ---
Author Gatito Sher [facility] eClinicalWorks Address Unknown Phone Unavailable Care Team Providers Care Project Financial Analyst Name Role Phone Gatito Laurent CP Unavailable Allergies, Adverse Reactions, Alerts Substance Reaction Event Type N.K.D.A. Info Not Available Non Drug Allergy Problems Problem Type Condition Code Onset Dates Condition Status Assessment SD CERVIC REG 739.1 Active Assessment High Risk Meds V58.69 Active Assessment BACK PAIN, LOW 724.2 Active Problem Myositis 729.1 Active Problem BACK PAIN, LOW 724.2 Active Problem Dyslipidemia 272.9 Active Assessment Dyslipidemia 272.9 Active Assessment Screening PSA V76.44 Active Problem CAD Unspecified type of vessel 414.00 Active Assessment Myositis 729.1 Active Assessment SD SACRAL REG 739.4 Active [...] once a day 1 tab(s) Plavix NDC 41076 75 mg orally once a day 1 tab(s) Lipitor NDC 6419 20 mg orally once a day 1 tab(s) Benicar HCT NDC 66751 12.5 mg-20 mg orally once a day 1 tab(s) Vitamin C with Demetria Hips NDC 8315 500 mg orally once a day 1 tab(s ) Vitamin E NDC 0 1000IU Orally qd 1 Lotrisone NDC 1293 0.05%-1% applied topically BID-PRN 1 giovanni metoprolol NDC 24994 50 mg orally once a day 1 tab(s) Lovaza NDC 870953 1 g oral BID 1 capsules Aspirin Low Strength NDC 7555 81 mg orally once a day 1 tab(s) potassium NDC 0 90mg orally qd 1 Procedures Procedure Coding System Code Date OMT 7-8 [facility]ions CPT-4 71818 November 20, 2007 T.P. 1-2 CPT-4 47503 November 20, 2007 OFC/OUTPT E&M ESTAB 5 MIN Proc. CPT-4 94001 November 20, 2007 venipuncture VENOUS BLD VENIPProc. CPT-4 17971 November 20, 2007 Vitamin D-3 25 [place] CPT-4 89427 November 20, 2007 LIPOPROTEIN BLD, HR FRACTION CPT-4 29070 November 20, 2007 GENERAL HEALTH PANEL Proc. CPT-4 79403 November 20, 2007 PROSTATE SPECIFIC ANTIGEN; TOProc. CPT-4 11407 November 20, 2007 TRIGLYCERIDES Proc. CPT-4 46612 November 20, 2007 Vital Signs Date/Time: November 20, 2007 Temperature 97.9 F Weight 203.8 lbs Height 69 in Respiratory Rate 14 /min Pulse 76 /min Blood Pressure Diastolic 78 mm Hg Blood Pressure Systolic 126 mm Hg BMI 30.09 Index Results No Known Results Summary Purpose eClinicalWorks Submission
--- OUTSIDE RECORDS SUMMARY | 2018-07-16 22:38 | XMS REPORT ---
Author Gatito Sher [facility] eClinicalWorks Address Unknown Phone Unavailable Care Team Providers Care Program Director Substance Abuse Name Role Phone Gatito Laurent CP Unavailable Allergies No Known Allergies Problems Problem Type Condition Code Onset Dates Condition Status Assessment SD SACRAL REG 739.4 Active Assessment SD LUMBAR REG 739.3 Active Assessment SD PELVIC REG 739.5 Active Assessment SD Abd & other 739.9 Active Assessment SD THORAC REG 739.2 Active Problem BACK PAIN, LOW 724.2 Active Problem CAD Unspecified type of vessel 414.00 Active Problem Myositis 729.1 Active Assessment SD CERVIC REG 739.1 Active Assessment SD HEAD REGION 739.0 Active Assessment Myositis 729.1 Active Assessment BACK PAIN, LOW 724.2 Active Medications Medication Code System Code Instructions Start Date End Date Status Dosage Aspirin Low Strength NDC 7555 81 mg orally once a day 1 tab(s) omega-3 polyunsaturated fatty acids NDC 20920 multi [place] 800mg orally QD 3 potassium NDC 0 90mg orally qd 1 Lipitor NDC 6419 20 mg orally once a day 1 tab(s) Flax Seed Oil NDC 0 1000mg orally TID 1 cap Lotrisone NDC 1293 0.05%-1% applied topically BID 1 giovanni metoprolol NDC 26915 50 mg orally once a day 1 tab(s) Vitamin E NDC 0 1000IU Orally qd 1 Centrum NDC 8493 Therapeutic Multiple Vitamins with Minerals orally once a day 1 tab(s) Vitamin C with Demetria Hips NDC 8315 500 mg orally once a day 1 tab(s ) Plavix NDC 83287 75 mg orally once a day 1 tab(s) Benicar HCT NDC 09451 12.5 mg-20 mg orally once a day 1 tab(s) Coral Calcium NDC 0 250/50IU/125mg orally qd 1 Procedures Procedure Coding System Code Date T.P. 3-4 OR MORE CPT-4 82527 August 29, 2007 Dexamethasone 4mg/ml CPT-4 J1094 August 29, 2007 OMT 7-8 Regions CPT-4 53590 August 29, 2007 Vital Signs Date/Time: August 29, 2007 Temperature 99.1 F Weight 202 lbs Height 69 in BMI 29.83 Index Respiratory Rate 14 /min Pulse 78 /min Results No Known Results Summary Purpose eClinicalWorks Submission
--- OUTSIDE RECORDS SUMMARY | 2018-07-16 22:38 | XMS REPORT ---
Author Gatito Sher [facility] eClinicalWorks Address Unknown Phone Unavailable Care Team Providers Care Tongue Stitcher Name Role Phone Gatito Laurent CP Unavailable [...] Instructions Start Date End Date Status Dosage Centrum [facility] 8493 Therapeutic Multiple Vitamins with Minerals orally once a day 1 tab(s) [place] [address] 12.5 mg-20 mg orally once a day 1 tab(s) Aspirin Low Strength NDC 7555 81 mg orally once a day 1 tab(s) Simcor NDC 0 500mg/20mg po once daily Apr 17, 2008 1 Plavix NDC 67497 75 mg orally once a day 1 tab(s) famotidine NDC 66170 20 mg orally PRN 1 tab(s) metoprolol NDC 82127 50 mg orally QD 1 tab(s) Trilipix ND 512204 135 mg orally once a day Feb 03, 2009 1 cap(s) Vitamin D3 NDC 4871 4000 IU orally once a day 1 tab(s) Co-Q10 NDC 90422 100 mg orally once a day 1 cap(s) Vitamin E NDC 0 500 IU Orally qd 1 Vitamin C with Demetria Hips NDC 8315 500 mg orally once a day 1 tab(s ) [place] 3/10/22/ NDC 0 Fish 800/Flax 800 [place].PrimroseBlk Current Borage Oil/ 400mg orally qd 1am- 1 pm Soma NDC 1329 250 mg orally QID September 16, 2008 1 tab(s) Coral Calcium NDC 0 250/50IU/125mg orally qd 1 potassium NDC 0 90mg orally qd 1 Zetia NDC 70399 10 mg orally once a day Feb 09, 2010 1 tab(s) Procedures Procedure Coding System Code Date Admin; intravenous push, single or initial substance/drug CPT-4 85636 Mar Admin of IV; each additional sequential intravenous push of a new substance/ drug CPT-4 44320 Mar 16, 2010 OMT 9-10 Regions CPT-4 62360 Mar 16, 2010 INJ Magnesium CPT-4 J3475 Mar 16, 2010 Calcium Gluconate per 10ml CPT-4 J0610 Mar 16, 2010 Vital Signs Date/Time: Mar 16, 2010 Blood Pressure Systolic 122 mm Hg Temperature 96.2 F Weight 198.2 lbs Respiratory Rate 16 /min Pulse 74 /min Blood Pressure Diastolic 72 mm Hg Results No Known Results Summary Purpose eClinicalWorks Submission
--- OUTSIDE RECORDS SUMMARY | 2018-07-16 22:38 | XMS REPORT ---
Author Gatito Sher [facility] [place] eClinicalWorks Address Unknown Phone Unavailable Care Team Providers Care Relay Man Name Role Phone Gatito Laurent CP Unavailable Allergies, Adverse Reactions, Alerts Substance Reaction Event Type Niaspan cold chills Non Drug Allergy Tricor Made his back hurt Non Drug Allergy Lipitor Leg Cramps Non Drug Allergy Crestor Leg Cramps Non Drug Allergy Problems Problem Type Condition Code Onset Dates Condition Status Assessment HTN BENIGN 401.1 Active Assessment BACK PAIN, LOW 724.2 Active Assessment Dyslipidemia 272.9 Active Assessment CAD Unspecified type of vessel 414.00 Active Assessment FLU VACCINATION V04.81 Active Assessment Myositis 729.1 Active Assessment zCal Mag Spasm of Muscle 728.85 Active Problem RASH NOS 782.1 Active Problem otitis externa, chronic 380.23 Active Assessment Spasm of muscle 728.85 Active Assessment SD UPPER EXTR 739.7 Active Problem Spasm of muscle 728.85 Active Assessment SD HEAD REGION 739.0 Active Problem BACK PAIN, LOW 724.2 Active Problem CAD Unspecified type of vessel 414.00 Active Problem Dyslipidemia 272.9 Active Problem Myositis 729.1 Active Assessment SD PELVIC REG 739.5 Active Assessment SD LUMBAR REG 739.3 Active Assessment SD THORAC REG 739.2 Active Assessment SD SACRAL REG 739.4 Active Assessment Vitamin D deficiency NOS 268.9 Active Assessment screening PSA V76.44 Active Assessment SD LOWER EXTR 739.6 Active Assessment SD CERVIC REG 739.1 Active Medications Medication Code System Code Instructions Start Date End Date Status Dosage Trilipix NDC 236004 135 mg orally once a day Feb 03, 2009 1 cap(s) metoprolol NDC 60853 50 mg orally QD 1 tab(s) Co-Q10 NDC 39733 100 mg orally once a day 1 cap(s) potassium NDC 0 90mg orally qd 1 Vitamin D3 NDC 4871 4000 IU orally once a day 1 tab(s) Soma NDC 1329 250 mg orally QID September 16, 2008 1 tab(s) famotidine NDC 48097 20 mg orally PRN 1 tab(s) [place] 3/6/9/ NDC 0 Fish 800/Flax 800 [place].PrimroseBlk Current Borage Oil/ 400mg orally qd 1am- 1 pm Centrum NDC 8493 Therapeutic Multiple Vitamins with Minerals orally once a day 1 tab(s) Coral Calcium NDC 0 250/50IU/125mg orally qd 1 Simcor NDC 0 500mg/20mg po once daily Apr 17, 2008 1 Vitamin E NDC 0 500 IU Orally qd 1 Benicar HCT NDC 03746 12.5 mg-20 mg orally once a day 1 tab(s) Plavix NDC 39369 75 mg orally once a day 1 tab(s) Aspirin Low Strength NDC 7555 81 mg orally once a day 1 tab(s) Vitamin C with Demetria Hips NDC 8315 500 mg orally once a day 1 tab(s ) Procedures Procedure Coding System Code Date COMPREHENSIVE METABOLIC PANELProc. CPT-4 70583 Jan 13, 2010 LIPID PANEL Proc. CPT-4 34164 Jan 13, 2010 Vitamin D-3 25 [place] CPT-4 51259 Jan 13, 2010 Calcium Gluconate per 10ml CPT-4 J0610 Jan 13, 2010 Admin of IV; each additional sequential intravenous push of a new substance/ drug CPT-4 82136 Jan 13, 2010 LIPOPROTEIN, BLD, BY NMR CPT-4 25763 Jan 13, 2010 INJ Magnesium CPT-4 J3475 Jan 13, 2010 PROSTATE SPECIFIC ANTIGEN; TOProc. CPT-4 03314 Jan 13, 2010 ANTINUCLEAR ANTIBODIES ([facility] to Bill) Proc. CPT-4 04387 Jan 13, 2010 OMT 7-8 [facility] CPT-4 66795 Jan 13, 2010 Crp C Reactive Protein Proc. CPT-4 34249 Jan 13, 2010 SED RATE ERYTHROCYTE; AUTOMATProc. CPT-4 75132 Jan 13, 2010 Admin; intravenous push, single or initial substance/drug CPT-4 34710 Dec RHEUMATOID FACTOR QUANTITATIVProc. CPT-4 87945 Jan 13, 2010 THYROID STIMULATING HORMONE Proc. CPT-4 06951 Jan 13, 2010 OFC/OUTPT E&M ESTAB MOD-HI 25Proc. CPT-4 64259 Jan 13, 2010 venipuncture VENOUS BLD VENIPProc. CPT-4 49638 Jan 13, 2010 IMMUNIZATION ADMIN; 1 VACCINEProc. CPT-4 83411 Jan 13, 2010 Flu Adult 18 & Over CPT-4 72437 Jan 13, 2010 Vital Signs Date/Time: Jan 13, 2010 Blood Pressure Systolic 108 mm Hg Temperature 96.1 F Weight 193.2 lbs Respiratory Rate 16 /min Pulse 80 /min Blood Pressure Diastolic 70 mm Hg Results No Known Results Immunizations Vaccine Administration Date zFlu Adult Jan 13, 2010 Summary Purpose eClinicalWorks Submission
--- OUTSIDE RECORDS SUMMARY | 2018-07-16 22:39 | XMS REPORT ---
Author Gatito Sher [facility] eClinicalWorks Address Unknown Phone Unavailable Care Team Providers Care Power House Control Room Operator Name Role Phone Gatito Laurent CP Unavailable [...] Mag Spasm of Muscle 728.85 Active Assessment CAD Unspecified type of vessel 414.00 Active Problem RASH NOS 782.1 Active Problem otitis externa, chronic 380.23 Active Problem Spasm of muscle 728.85 Active Problem BACK PAIN, LOW 724.2 Active Problem CAD Unspecified type of vessel 414.00 Active Problem Dyslipidemia 272.9 Active Problem Myositis 729.1 Active Assessment SD RIB CAGE 739.8 Active Assessment BACK PAIN, LOW 724.2 Active Assessment SD SACRAL REG 739.4 Active Assessment SD PELVIC REG 739.5 Active Assessment SD UPPER EXTR 739.7 Active Assessment SD LOWER EXTR 739.6 Active Assessment SD THORAC REG 739.2 Active Assessment SD CERVIC REG 739.1 Active Medications Medication Code System Code Instructions Start Date End Date Status Dosage Aspirin Low Strength NDC 7555 81 mg orally once a day 1 tab(s) Trilipix NDC 976046 135 mg orally once a day Feb 03, 2009 1 cap(s) Co-Q10 NDC 89532 100 mg orally once a day 1 cap(s) Centrum NDC 8493 Therapeutic Multiple Vitamins with Minerals orally once a day 1 tab(s) Vitamin D3 NDC 4871 4000 IU orally once a day 1 tab(s) Simcor NDC 0 500mg/20mg po once daily Apr 17, 2008 1 Benicar HCT NDC 71954 12.5 mg-20 mg orally once a day 1 tab(s) famotidine NDC 54535 20 mg orally PRN 1 tab(s) Coral Calcium NDC 0 250/50IU/125mg orally qd 1 Vitamin C with Demetria Hips NDC 8315 500 mg orally once a day 1 tab(s ) metoprolol NDC 27868 50 mg orally QD 1 tab(s) Vitamin E NDC 0 500 IU Orally qd 1 [place]olph 3//9/ NDC 0 Fish 800/Flax 800 Suma.PrimroseBlk Current Borage Oil/ 400mg orally qd 1am- 1 pm Plavix NDC 77423 75 mg orally once a day 1 tab(s) Soma NDC 1329 250 mg orally QID September 16, 2008 1 tab(s) potassium NDC 0 90mg orally qd 1 Procedures Procedure Coding System Code Date OMT 7-8 Regions CPT-4 41913 Jun 02, 2009 Admin; intravenous push, single or initial substance/drug CPT-4 53905 May OFC/OUTPT E&M ESTAB MINOR 10 Proc. CPT-4 88851 Jun 02, 2009 INJ Magnesium CPT-4 J3475 Jun 02, 2009 Admin of IV; each additional sequential intravenous push of a new substance/ drug CPT-4 61230 Jun 02, 2009 Calcium Gluconate per 10ml CPT-4 J0610 Jun 02, 2009 Vital Signs Date/Time: Jun 02, 2009 Temperature 97.1 F Weight 195.4 lbs Height 68 in Respiratory Rate 16 /min Pulse 76 /min Blood Pressure Diastolic 70 mm Hg Blood Pressure Systolic 118 mm Hg BMI 29.71 Index Results No Known Results Summary Purpose eClinicalWorks Submission
--- OUTSIDE RECORDS SUMMARY | 2018-07-16 22:39 | XMS REPORT ---
Author Reyna Saul [facility] eClinicalWorks Address Unknown Phone Unavailable Care Team Providers Care Workforce Development Specialist Name Role Phone Reyna Forbes CP Unavailable Allergies, Adverse Reactions, Alerts Substance Reaction Event Type Niaspan cold chills Non Drug Allergy Tricor Made his back hurt Non Drug Allergy Lipitor Leg Cramps Non Drug Allergy Crestor Leg Cramps Non Drug Allergy Problems Problem Type Condition Code Onset Dates Condition Status Assessment OTITIS EXTERNA NOS 380.22 Active Problem BACK PAIN, LOW 724.2 Active Problem CAD Unspecified type of vessel 414.00 Active Problem Costochondritis 733.6 Active Problem Spasm of muscle 728.85 Active Problem Back pain 724.5 Active Problem Dyslipidemia 272.9 Active Problem Myositis 729.1 Active Problem RASH NOS 782.1 Active Problem otitis externa, chronic 380.23 Active Medications Medication Code System Code Instructions Start Date End Date Status Dosage Cortane-B NDC 99300 0.1%-1%-1% in each affected ear 3 times a day Mar 02, 2012 5 gtt famotidine NDC 50463 20 mg orally PRN 1 tab(s) metoprolol NDC 80028 50 mg orally QD September 16, 2011 1 tab(s) [place] 3/6/9/ NDC 0 Fish 800/Flax 800 [place].PrimroseBlk Current Borage Oil/ 400mg orally qd 1am- 1 pm Simcor NDC 0 500mg/20mg po once daily Apr 17, 2008 1 Plavix NDC 44348 75 mg orally once a day 1 tab(s) Aspirin Low Strength NDC 7555 81 mg orally once a day 1 tab(s) Soma NDC 1329 250 mg orally QID September 16, 2008 1 tab(s) Benicar HCT NDC 99743 12.5 mg-20 mg orally once a day 1 tab(s) Magnesium NDC 0 300/40/10 mg Orally qd 1 cap Vitamin E NDC 0 500 IU Orally qd 1 Centrum NDC 8493 Therapeutic Multiple Vitamins with Minerals orally once a day 1 tab(s) Vitamin A NDC 0 8000 IU qd 1 cap Vitamin C with Demetria Hips NDC 8315 500 mg orally once a day 1 tab(s ) Co-Q10 NDC 72979 100 mg orally once a day 1 cap(s) Vitamin D3 NDC 4871 4000 IU orally once a day 1 tab(s) Trilipix NDC 111779 135 mg orally once a day Feb 03, 2009 1 cap(s) Procedures Procedure Coding System Code Date CULT BACT; ANY SORCE ANAEROB Proc. CPT-4 86927 Mar 02, 2012 CULT BACT; NO URINE/BLD/STOOLProc. CPT-4 25755 Mar 02, 2012 OFC/OUTPT E&M ESTAB LOW-MOD 1Proc. CPT-4 60450 Mar 02, 2012 SMEAR-PRIM W/INTERPT; GRAM STProc. CPT-4 53684 Mar 02, 2012 Vital Signs Date/Time: Mar 02, 2012 Temperature 96.6 F Weight 197.4 lbs Height 68 in Respiratory Rate 16 /min Pulse 84 /min Blood Pressure Diastolic 68 mm Hg Blood Pressure Systolic 120 mm Hg BMI 30.01 Index Results No Known Results Summary Purpose eClinicalWorks Submission
--- OUTSIDE RECORDS SUMMARY | 2018-07-16 22:39 | XMS REPORT ---
Author Gatito Sher [facility] [place] eClinicalWorks Address Unknown Phone Unavailable Care Team Providers Care Aircraft Instrument Repairer Name Role Phone Gatito Laurent CP Unavailable Allergies, Adverse Reactions, Alerts Substance Reaction Event Type Niaspan cold chills Non Drug Allergy Tricor Made his back hurt Non Drug Allergy Lipitor Leg Cramps Non Drug Allergy Crestor Leg Cramps Non Drug Allergy Problems Problem Type Condition Code Onset Dates Condition Status Assessment SD HEAD REGION 739.0 Active Assessment zCal Mag Spasm of Muscle 728.85 Active Assessment SD CERVIC REG 739.1 Active Problem RASH NOS 782.1 Active Problem otitis externa, chronic 380.23 Active Problem Spasm of muscle 728.85 Active Problem BACK PAIN, LOW 724.2 Active Problem CAD Unspecified type of vessel 414.00 Active Problem Dyslipidemia 272.9 Active Problem Myositis 729.1 Active Assessment Osteoarthritis 715.90 Active Assessment SD THORAC REG 739.2 Active Assessment SD SACRAL REG 739.4 Active Assessment Back pain 724.5 Active Assessment SD PELVIC REG 739.5 Active Assessment SD UPPER EXTR 739.7 Active Assessment SD LUMBAR REG 739.3 Active Medications Medication Code System Code Instructions Start Date End Date Status Dosage Centrum NDC 8493 Therapeutic Multiple Vitamins with Minerals orally once a day 1 tab(s) Vitamin D3 NDC 4871 4000 IU orally once a day 1 tab(s) Simcor NDC 0 500mg/20mg po once daily Apr 17, 2008 1 Soma NDC 1329 250 mg orally QID September 16, 2008 1 tab(s) potassium NDC 0 90mg orally qd 1 Co-Q10 NDC 85404 100 mg orally once a day 1 cap(s) Vitamin C with Demetria Hips NDC 8315 500 mg orally once a day 1 tab(s ) Aspirin Low Strength NDC 7555 81 mg orally once a day 1 tab(s) Trilipix NDC 896808 135 mg orally once a day Feb 03, 2009 1 cap(s) metoprolol NDC 06736 50 mg orally QD 1 tab(s) Coral Calcium NDC 0 250/50IU/125mg orally qd 1 Plavix NDC 39252 75 mg orally once a day 1 tab(s) Vitamin E NDC 0 500 IU Orally qd 1 Benicar HCT NDC 17816 12.5 mg-20 mg orally once a day 1 tab(s) famotidine NDC 62902 20 mg orally PRN 1 tab(s) [place] 3/6/9/ NDC 0 Fish 800/Flax 800 [place]a.PrimroseBlk Current Borage Oil/ 400mg orally qd 1am- 1 pm Procedures Procedure Coding System Code Date Admin; intravenous push, single or initial substance/drug CPT-4 40611 October 29, 2009 Admin of IV; each additional sequential intravenous push of a new substance/ drug CPT-4 13891 October 29, 2009 OMT 7-8 Regions CPT-4 86542 October 29, 2009 Calcium Gluconate per 10ml CPT-4 J0610 October 29, 2009 INJ Magnesium CPT-4 J3475 October 29, 2009 Vital Signs Date/Time: October 29, 2009 Temperature 96.7 F Weight 194.4 lbs Height 68 in Respiratory Rate 16 /min Pulse 80 /min Blood Pressure Diastolic 72 mm Hg Blood Pressure Systolic 120 mm Hg BMI 29.56 Index Results No Known Results Summary Purpose eClinicalWorks Submission
--- OUTSIDE RECORDS SUMMARY | 2018-07-16 22:39 | XMS REPORT ---
Author Gatito Sher [facility] eClinicalWorks Address Unknown Phone Unavailable Care Team Providers Care Mud Analysis Supervisor Name Role Phone Gatito Laurent CP Unavailable [...] 272.9 Active Problem Myositis 729.1 Active Assessment BACK PAIN, LOW 724.2 Active Assessment SD UPPER EXTR 739.7 Active Assessment SD THORAC REG 739.2 Active Assessment SD RIB CAGE 739.8 Active Assessment SD SACRAL REG 739.4 Active Assessment SD HEAD REGION 739.0 Active Assessment SD PELVIC REG 739.5 Active Medications Medication Code System Code Instructions Start Date End Date Status Dosage metoprolol NDC 75803 50 mg orally QD 1 tab(s) Plavix NDC 43752 75 mg orally once a day 1 tab(s) Co-Q10 NDC 86978 100 mg orally once a day 1 cap(s) Vitamin C with Demetria Hips NDC 8315 500 mg orally once a day 1 tab(s ) Vitamin D3 NDC 4871 4000 IU orally once a day 1 tab(s) Soma NDC 1329 250 mg orally QID September 16, 2008 1 tab(s) famotidine NDC 37872 20 mg orally PRN 1 tab(s) [place] 3/6/9/ NDC 0 Fish 800/Flax 800 [place].PrimroseBlk Current Borage Oil/ 400mg orally qd 1am- 1 pm potassium NDC 0 90mg orally qd 1 Vitamin E NDC 0 500 IU Orally qd 1 Trilipix NDC 273901 135 mg orally once a day Feb 03, 2009 1 cap(s) Coral Calcium NDC 0 250/50IU/125mg orally qd 1 Benicar HCT NDC 23922 12.5 mg-20 mg orally once a day 1 tab(s) Aspirin Low Strength NDC 7555 81 mg orally once a day 1 tab(s) Simcor NDC 0 500mg/20mg po once daily Apr 17, 2008 1 Centrum NDC 8493 Therapeutic Multiple Vitamins with Minerals orally once a day 1 tab(s) Procedures Procedure Coding System Code Date Admin; intravenous push, single or initial substance/drug CPT-4 55148 Jun INJ Magnesium CPT-4 J3475 Jul 07, 2009 OMT 7-8 Regions CPT-4 00710 Jul 07, 2009 Admin of IV; each additional sequential intravenous push of a new substance/ drug CPT-4 69445 Jul 07, 2009 Calcium Gluconate per 10ml CPT-4 J0610 Jul 07, 2009 Vital Signs Date/Time: Jul 07, 2009 Blood Pressure Systolic 128 mm Hg Temperature 96.2 F Weight 199.8 lbs Respiratory Rate 16 /min Pulse 76 /min Blood Pressure Diastolic 70 mm Hg Results No Known Results Summary Purpose eClinicalWorks Submission
--- OUTSIDE RECORDS SUMMARY | 2018-07-16 22:39 | XMS REPORT ---
Author Gatito Sher [facility] eClinicalWorks Address Unknown Phone Unavailable Care Team Providers Care Knapsack Sprayer Name Role Phone Gatito Laurent CP Unavailable Allergies, Adverse Reactions, Alerts Substance Reaction Event Type Niaspan cold chills Non Drug Allergy Tricor Made his back hurt Non Drug Allergy Lipitor Leg Cramps Non Drug Allergy Crestor Leg Cramps Non Drug Allergy Problems Problem Type Condition Code Onset Dates Condition Status Assessment BACK PAIN, LOW 724.2 Active Assessment SD CERVIC REG 739.1 Active Assessment Dyslipidemia 272.9 Active Problem RASH NOS 782.1 Active Problem otitis externa, chronic 380.23 Active Problem Spasm of muscle 728.85 Active Problem BACK PAIN, LOW 724.2 Active Problem CAD Unspecified type of vessel 414.00 Active Problem Dyslipidemia 272.9 Active Problem Myositis 729.1 Active Assessment SD HEAD REGION 739.0 Active Assessment SD UPPER EXTR 739.7 Active Assessment SD PELVIC REG 739.5 Active Assessment SD LUMBAR REG 739.3 Active Assessment SD THORAC REG 739.2 Active Assessment SD LOWER EXTR 739.6 Active Assessment SD SACRAL REG 739.4 Active Assessment zCal Mag Spasm of Muscle 728.85 Active Medications Medication Code System Code Instructions Start Date End Date Status Dosage Aspirin Low Strength NDC 7555 81 mg orally once a day 1 tab(s) potassium NDC 0 90mg orally qd 1 Trilipix NDC 351092 135 mg orally once a day Feb 03, 2009 1 cap(s) famotidine NDC 84192 20 mg orally PRN 1 tab(s) [place] 3/6/9/ NDC 0 Fish 800/Flax 800 [place].PrimroseBlk Current Borage Oil/ 400mg orally qd 1am- 1 pm Vitamin C with Demetria Hips NDC 8315 500 mg orally once a day 1 tab(s ) Simcor NDC 0 500mg/20mg po once daily Apr 17, 2008 1 Co-Q10 NDC 81452 100 mg orally once a day 1 cap(s) Benicar HCT NDC 31004 12.5 mg-20 mg orally once a day 1 tab(s) Vitamin D3 NDC 4871 4000 IU orally once a day 1 tab(s) Plavix NDC 80232 75 mg orally once a day 1 tab(s) Soma NDC 1329 250 mg orally QID September 16, 2008 1 tab(s) Coral Calcium NDC 0 250/50IU/125mg orally qd 1 metoprolol NDC 78466 50 mg orally QD 1 tab(s) Zetia NDC 08338 10 mg orally once a day Feb 09, 2010 1 tab(s) Vitamin E NDC 0 500 IU Orally qd 1 Centrum NDC 8493 Therapeutic Multiple Vitamins with Minerals orally once a day 1 tab(s) Procedures Procedure Coding System Code Date OMT 11-20 Regions CPT-4 87068 Feb 09, 2010 Admin; intravenous push, single or initial substance/drug CPT-4 72752 Feb 09, 2010 OFC/OUTPT E&M ESTAB MINOR 10 Proc. CPT-4 77047 Feb 09, 2010 Calcium Gluconate per 10ml CPT-4 J0610 Feb 09, 2010 Admin of IV; each additional sequential intravenous push of a new substance/ drug CPT-4 52868 Feb 09, 2010 INJ Magnesium CPT-4 J3475 Feb 09, 2010 Vital Signs Date/Time: Feb 09, 2010 Blood Pressure Systolic 114 mm Hg Temperature 96.1 F Weight 196.4 lbs Respiratory Rate 16 /min Pulse 76 /min Blood Pressure Diastolic 68 mm Hg Results No Known Results Summary Purpose eClinicalWorks Submission
--- OUTSIDE RECORDS SUMMARY | 2018-07-16 22:39 | XMS REPORT ---
Author Gatito Sher [facility] eClinicalWorks Address Unknown Phone Unavailable Care Team Providers Care Special Trackwork Blacksmith Name Role Phone Gatito Laurent CP Unavailable Allergies, Adverse Reactions, Alerts Substance Reaction Event Type Niaspan cold chills Non Drug Allergy Tricor Made his back hurt Non Drug Allergy Crestor Leg Cramps Non Drug Allergy Lipitor Leg Cramps Non Drug Allergy Problems Problem Type Condition Code Onset Dates Condition Status Assessment SD LUMBAR REG 739.3 Active Assessment Dyslipidemia 272.9 Active Assessment SD CERVIC REG 739.1 Active Problem otitis externa, chronic 380.23 Active Problem Dyslipidemia 272.9 Active Problem RASH NOS 782.1 Active Problem CAD Unspecified type of vessel 414.00 Active Assessment Dandruff 690.18 Active Problem Myositis 729.1 Active Problem BACK PAIN, LOW 724.2 Active Assessment SD UPPER EXTR 739.7 Active Assessment SD THORAC REG 739.2 Active Assessment SD HEAD REGION 739.0 Active Assessment SD SACRAL REG 739.4 Active Assessment BACK PAIN, LOW 724.2 Active Assessment SD PELVIC REG 739.5 Active Medications Medication Code System Code Instructions Start Date End Date Status Dosage Benicar HCT NDC 83421 12.5 mg-20 mg orally once a day 1 tab(s) Aspirin Low Strength NDC 7555 81 mg orally once a day 1 tab(s) Plavix NDC 77358 75 mg orally once a day 1 tab(s) Centrum NDC 8493 Therapeutic Multiple Vitamins with Minerals orally once a day 1 tab(s) Rhodiola NDC 0 410 mg Orally QD 1 Vitamin C with Demetria Hips NDC 8315 500 mg orally once a day 1 tab(s ) Red Yeast Rice NDC 765687 600 mg orally once a day 2 cap(s) nystatin-triamcinolone topical NDC 24567 263287 units/g-0.1% applied topically TID 1 giovanni Coral Calcium NDC 0 250/50IU/125mg orally qd 1 Lovaza NDC 793444 1 g oral BID 1 capsules metoprolol NDC 74010 50 mg orally once a day 1 tab(s) potassium NDC 0 90mg orally qd 1 Diflucan NDC 3884 200 mg orally once a day Mar 20, 2008 1 tab(s) Lotrisone NDC 1293 0.05%-1% applied topically BID-PRN 1 giovanni Vitamin E NDC 0 1000IU Orally qd 1 Simcor NDC 0 500mg/20mg po qd Apr 17, 2008 1 Procedures Procedure Coding System Code Date OMT 7-8 Regions CPT-4 15581 Apr 17, 2008 OFC/OUTPT E&M ESTAB MINOR 10 Proc. CPT-4 37432 Apr 17, 2008 Vital Signs Date/Time: Apr 17, 2008 Temperature 97.1 F Weight 193.8 lbs Height 69 in Respiratory Rate 16 /min Pulse 72 /min Blood Pressure Diastolic 70 mm Hg Blood Pressure Systolic 120 mm Hg BMI 28.62 Index Results No Known Results Summary Purpose eClinicalWorks Submission
--- OUTSIDE RECORDS SUMMARY | 2018-07-16 22:40 | XMS REPORT ---
Author Reyna Saul [facility] eClinicalWorks Address Unknown Phone Unavailable Care Team Providers Care Bottle Dealer Name Role Phone Reyna Forbes CP Unavailable Allergies, Adverse Reactions, Alerts Substance Reaction Event Type Niaspan cold chills Non Drug Allergy Tricor Made his back hurt Non Drug Allergy Lipitor Leg Cramps Non Drug Allergy Crestor Leg Cramps Non Drug Allergy Problems Problem Type Condition Code Onset Dates Condition Status Assessment Open wound of ear drum without complication 872.61 Active Problem BACK PAIN, LOW 724.2 Active Problem CAD Unspecified type of vessel 414.00 Active Assessment PERFORAT TYMPAN MEMB NOS 384.20 Active Problem Costochondritis 733.6 Active Problem Spasm of muscle 728.85 Active Problem Back pain 724.5 Active Problem Dyslipidemia 272.9 Active Problem Myositis 729.1 Active Problem RASH NOS 782.1 Active Problem otitis externa, chronic 380.23 Active Medications Medication Code System Code Instructions Start Date End Date Status Dosage [place] /10/22/ NDC 0 Fish 800/Flax 800 [place].PrimroseBlk Current Borage Oil/ 400mg orally qd 1am- 1 pm Co-Q10 NDC 99242 100 mg orally once a day 1 cap(s) Vitamin E NDC 0 500 IU Orally qd 1 Simcor NDC 0 500mg/20mg po once daily Apr 17, 2008 1 Benicar HCT NDC 20512 12.5 mg-20 mg orally once a day 1 tab(s) Omnicef NDC 65809 300 mg orally QD August 24, 2011 2 cap(s) Magnesium NDC 0 300/40/10 mg Orally qd 1 cap Aspirin Low Strength NDC 7555 81 mg orally once a day 1 tab(s) Centrum NDC 8493 Therapeutic Multiple Vitamins with Minerals orally once a day 1 tab(s) Trilipix NDC 728034 135 mg orally once a day Feb 03, 2009 1 cap(s) metoprolol NDC 74986 50 mg orally QD September 16, 2011 1 tab(s) famotidine NDC 43085 20 mg orally PRN 1 tab(s) Vitamin D3 NDC 4871 4000 IU orally once a day 1 tab(s) Soma NDC 1329 250 mg orally QID September 16, 2008 1 tab(s) Vitamin C with Demetria Hips NDC 8315 500 mg orally once a day 1 tab(s ) Vitamin A NDC 0 8000 IU qd 1 cap Floxin Otic NDC 78395 0.3% in each affected ear 2 times a day September 27, 2011 10 gtt Plavix NDC 69480 75 mg orally once a day 1 tab(s) Procedures Procedure Coding System Code Date OFC/OUTPT E&M ESTAB LOW-MOD 1Proc. CPT-4 12087 September 27, 2011 Vital Signs Date/Time: September 27, 2011 Temperature 96.4 F Weight 191.2 lbs Height 68 in Respiratory Rate 16 /min Pulse 72 irr /min Blood Pressure Diastolic 70 mm Hg Blood Pressure Systolic 132 mm Hg BMI 29.07 Index Results No Known Results Summary Purpose eClinicalWorks Submission
--- OUTSIDE RECORDS SUMMARY | 2018-07-16 22:40 | XMS REPORT ---
Author Gatito Sher [facility] eClinicalWorks Address Unknown Phone Unavailable Care Team Providers Care Permit Review Assistant Name Role Phone Gatito Laurent CP Unavailable Allergies, Adverse Reactions, Alerts Substance Reaction Event Type Niaspan cold chills Non Drug Allergy Tricor Made his back hurt Non Drug Allergy Lipitor Leg Cramps Non Drug Allergy Crestor Leg Cramps Non Drug Allergy Problems Problem Type Condition Code Onset Dates Condition Status Assessment Screening PSA V76.44 Active Assessment Dyslipidemia 272.9 Active Assessment High Risk Meds V58.69 Active Problem RASH NOS 782.1 Active Problem otitis externa, chronic 380.23 Active Problem Spasm of muscle 728.85 Active Problem BACK PAIN, LOW 724.2 Active Problem CAD Unspecified type of vessel 414.00 Active Problem Dyslipidemia 272.9 Active Problem Myositis 729.1 Active Assessment SD UPPER EXTR 739.7 Active Assessment SD THORAC REG 739.2 Active Assessment Myositis 729.1 Active Assessment SD LUMBAR REG 739.3 Active Assessment SD HEAD REGION 739.0 Active Assessment SD SACRAL REG 739.4 Active Assessment SD CERVIC REG 739.1 Active Assessment SD PELVIC REG 739.5 Active Assessment Low back pain 724.2 Active Medications Medication Code System Code Instructions Start Date End Date Status Dosage Co-Q10 NDC 96279 100 mg orally once a day 1 cap(s) Benicar HCT NDC 24700 12.5 mg-20 mg orally once a day 1 tab(s) Vitamin E NDC 0 500 IU Orally qd 1 Soma NDC 1329 250 mg orally QID September 16, 2008 1 tab(s) potassium NDC 0 90mg orally qd 1 fish oil NDC 0 BID 1 cap Centrum NDC 8493 Therapeutic Multiple Vitamins with Minerals orally once a day 1 tab(s) Red Yeast Rice NDC 838394 600 mg orally once a day 2 cap(s) Aspirin Low Strength NDC 7555 81 mg orally once a day 1 tab(s) Vitamin C with Demetria Hips NDC 8315 500 mg orally once a day 1 tab(s ) famotidine NDC 52378 20 mg orally PRN 1 tab(s) Simcor NDC 0 500mg/20mg po once daily Apr 17, 2008 1 Coral Calcium NDC 0 250/50IU/125mg orally qd 1 Vitamin D3 NDC 4871 2000 intl units orally once a day 1 tab(s) metoprolol NDC 97968 50 mg orally QD 1 tab(s) Plavix NDC 93089 75 mg orally once a day 1 tab(s) Procedures Procedure Coding System Code Date OMT 7-8 Regions CPT-4 83491 Jan 02, 2009 PROSTATE SPECIFIC ANTIGEN; TOProc. CPT-4 33528 Jan 02, 2009 OFC/OUTPT E&M ESTAB MINOR 10 Proc. CPT-4 03382 Jan 02, 2009 venipuncture VENOUS BLD VENIPProc. CPT-4 50827 Jan 02, 2009 GENERAL HEALTH PANEL Proc. CPT-4 49495 Jan 02, 2009 LIPOPROTEIN BLD, HR FRACTION CPT-4 59995 Jan 02, 2009 PROSTATE SPECIFIC ANTIGEN; FRProc. CPT-4 72568 Jan 02, 2009 Vitamin D-3 25 [place] CPT-4 06648 Jan 02, 2009 TRIGLYCERIDES Proc. CPT-4 44990 Jan 02, 2009 Vital Signs Date/Time: Jan 02, 2009 Temperature 97.4 F Weight 184.6 lbs Height 67 3/4 in Respiratory Rate 14 /min Pulse 76 /min Blood Pressure Diastolic 70 mm Hg Blood Pressure Systolic 118 mm Hg BMI 28.27 Index Results No Known Results Summary Purpose eClinicalWorks Submission
--- OUTSIDE RECORDS SUMMARY | 2018-07-16 22:40 | XMS REPORT ---
Author Gatito Sher [facility] eClinicalWorks Address Unknown Phone Unavailable Care Team Providers Care Display Decorator Name Role Phone Gatito Laurent CP Unavailable Allergies, Adverse Reactions, Alerts Substance Reaction Event Type Niaspan cold chills Non Drug Allergy Tricor Made his back hurt Non Drug Allergy Lipitor Leg Cramps Non Drug Allergy Crestor Leg Cramps Non Drug Allergy Problems Problem Type Condition Code Onset Dates Condition Status Assessment SD CERVIC REG 739.1 Active Assessment Myositis 729.1 Active Assessment Shoulder Pain 719.41 Active Problem RASH NOS 782.1 Active Problem [...] Assessment SD SACRAL REG 739.4 Active Assessment Spasm of muscle 728.85 Active Assessment SD PELVIC REG 739.5 Active Assessment SD UPPER EXTR 739.7 Active Assessment SD LUMBAR REG 739.3 Active Medications Medication Code System Code Instructions Start Date End Date Status Dosage Soma NDC 1329 250 mg orally QID September 16, 2008 1 tab(s) Plavix NDC 62767 75 mg orally once a day 1 tab(s) famotidine NDC 99514 20 mg orally QAM 1 tab(s) [place]al Calcium NDC 0 250/50IU/125mg orally qd 1 [place] NDC 0 410 mg Orally QD 1 metoprolol NDC 49927 50 mg orally once a day 1 tab(s) fish oil NDC 0 BID 1 cap Red Yeast Rice NDC 039370 600 mg orally once a day 2 cap(s) Vitamin C with Demetria Hips NDC 8315 500 mg orally once a day 1 tab(s ) Vitamin E NDC 0 1000IU Orally qd 1 potassium NDC 0 90mg orally qd 1 Vitamin D2 NDC 6150 2,000 IU orally once a day 1 tab Aspirin Low Strength NDC 7555 81 mg orally once a day 1 tab(s) Simcor NDC 0 500mg/20mg po once daily Apr 17, 2008 1 Centrum NDC 8493 Therapeutic Multiple Vitamins with Minerals orally once a day 1 tab(s) Procedures Procedure Coding System Code Date T.P. 3-4 OR MORE CPT-4 05733 October 03, 2008 Ultrasound CPT-4 23763 October 03, 2008 OMT 7-8 Regions CPT-4 76397 October 03, 2008 Dexamethasone 4mg/ml CPT-4 J1094 October 03, 2008 Vital Signs Date/Time: October 03, 2008 Blood Pressure Systolic 120 mm Hg Temperature 97.5 F Weight 192.6 lbs Respiratory Rate 14 /min Pulse 64 /min Blood Pressure Diastolic 62 mm Hg Results No Known Results Summary Purpose eClinicalWorks Submission
--- OUTSIDE RECORDS SUMMARY | 2018-07-16 22:40 | XMS REPORT ---
Author Gatito Sher [facility] eClinicalWorks Address Unknown Phone Unavailable Care Team Providers Care Admitting Office Escort Name Role Phone Gatito Laurent CP Unavailable Allergies, Adverse Reactions, Alerts Substance Reaction Event Type Niaspan cold chills Non Drug Allergy Tricor Made his back hurt Non Drug Allergy Lipitor Leg Cramps Non Drug Allergy Crestor Leg Cramps Non Drug Allergy Problems Problem Type Condition Code Onset Dates Condition Status Assessment High Risk Meds V58.69 Active Assessment zCal Mag Spasm of Muscle 728.85 Active Assessment Dyslipidemia 272.9 Active Problem RASH NOS 782.1 Active Assessment SD Abd & other 739.9 Active Problem otitis externa, chronic 380.23 Active Assessment SD RIB CAGE 739.8 Active Assessment Z Rib Pain 780.50 Active Problem Spasm of muscle 728.85 Active [...] SD CERVIC REG 739.1 Active Assessment SD SACRAL REG 739.4 Active Assessment Myositis 729.1 Active Assessment SD PELVIC REG 739.5 Active Assessment H1N1 FLU VACCINATION V04.81 Active Medications Medication Code System Code Instructions Start Date End Date Status Dosage Benicar HCT NDC 66815 12.5 mg-20 mg orally once a day 1 tab(s) Vitamin D3 NDC 4871 4000 IU orally once a day 1 tab(s) Coral Calcium NDC 0 250/50IU/125mg orally qd 1 Aspirin Low Strength NDC 7555 81 mg orally once a day 1 tab(s) Centrum NDC 8493 Therapeutic Multiple Vitamins with Minerals orally once a day 1 tab(s) Co-Q10 NDC 26291 100 mg orally once a day 1 cap(s) Vitamin E NDC 0 500 IU Orally qd 1 potassium NDC 0 90mg orally qd 1 Soma NDC 1329 250 mg orally QID September 16, 2008 1 tab(s) Trilipix NDC 556086 135 mg orally once a day Feb 03, 2009 1 cap(s) famotidine NDC 87662 20 mg orally PRN 1 tab(s) Simcor NDC 0 500mg/20mg po once daily Apr 17, 2008 1 Vitamin C with Demetria Hips NDC 8315 500 mg orally once a day 1 tab(s ) metoprolol NDC 11170 50 mg orally QD 1 tab(s) [place] /// NDC 0 Fish 800/Flax 800 [place].PrimroseBlk Current Borage Oil/ 400mg orally qd 1am- 1 pm Plavix NDC 24970 75 mg orally once a day 1 tab(s) Procedures Procedure Coding System Code Date venipuncture VENOUS BLD VENIPProc. CPT-4 00779 Apr 28, 2009 INJ Decadron per 1 mg CPT-4 J1100 Apr 28, 2009 T.P. 3-4 OR MORE CPT-4 61463 Apr 28, 2009 Admin; intravenous push, single or initial substance/drug CPT-4 41624 Apr OMT 9-10 [facility] CPT-4 60083 Apr 28, 2009 COMPREHENSIVE METABOLIC PANELProc. CPT-4 72840 Apr 28, 2009 H1N1 FLU INJ ADULT CPT-4 13356 Apr 28, 2009 LIPID PANEL Proc. CPT-4 92560 Apr 28, 2009 INJ Magnesium CPT-4 J3475 Apr 28, 2009 Admin of IV; each additional sequential intravenous push of a new substance/ drug CPT-4 40265 Apr 28, 2009 ADMIN/MOBILE HOMES REPAIRER H1N1 VACCINE CPT-4 40817 Apr 28, 2009 Calcium Gluconate per 10ml CPT-4 J0610 Apr 28, 2009 Vital Signs Date/Time: Apr 28, 2009 Blood Pressure Systolic 128 mm Hg Temperature 96.8 F Weight 194.6 lbs Respiratory Rate 16 /min Pulse 88 /min Blood Pressure Diastolic 72 mm Hg Results No Known Results Immunizations Vaccine Administration Date H1N1 FLU INJ ADULT Apr 28, 2009 Summary Purpose eClinicalWorks Submission
--- OUTSIDE RECORDS SUMMARY | 2018-07-16 22:40 | XMS REPORT ---
Author Reyna Saul [facility] eClinicalWorks Address Unknown Phone Unavailable Care Team Providers Care Tire Recapper Name Role Phone Reyna Forbes CP Unavailable Allergies, Adverse Reactions, Alerts Substance Reaction Event Type N.K.D.A. Info Not Available Non Drug Allergy Problems Problem Type Condition Code Onset Dates Condition Status Assessment Fungal infection NOS 117.9 Active Assessment Folliculitis 704.8 Active Problem CAD Unspecified type of vessel 414.00 Active Assessment Pain Back, Low 724.2 Active Assessment Pain leg 729.5 Active Assessment Benign neoplasm of unspecified site of skin 216.9 Active Assessment CAD Unspecified type of vessel 414.00 Active Medications Medication Code System Code Instructions Start Date End Date Status Dosage Vitamin C with Demetria Hips NDC 8315 500 mg orally once a day 1 tab(s ) potassium NDC 0 90mg orally qd 1 Benicar NDC 08560 20 mg orally once a day 1 tab(s) Coral Calcium NDC 0 250/50IU/125mg orally qd 1 Keflex NDC 1271 500 mg orally BID Mar 28, 2007 2 tabs Vitamin E NDC 0 1000IU Orally qd 1 Plavix NDC 92452 75 mg orally once a day 1 tab(s) Lipitor NDC 6419 20 mg orally once a day 1 tab(s) Lotrisone NDC 1293 0.05%-1% applied topically BID Mar 28, 2007 1 giovanni Centrum NDC 8493 Therapeutic Multiple Vitamins with Minerals orally once a day 1 tab(s) metoprolol NDC 91937 50 mg orally once a day 1 tab(s) Diflucan NDC 3884 200 mg orally once a day Mar 28, 2007 1 tab(s) omega-3 polyunsaturated fatty acids NDC 31036 multi [place] 800mg orally QD 3 Flax Seed Oil NDC 0 1000mg orally TID 1 cap Aspirin Low Strength NDC 7555 81 mg orally once a day 1 tab(s) famotidine NDC 57498 20 mg orally PRN 1 tab(s) Procedures Procedure Coding System Code Date OFC/OUTPT E&M ESTAB MOD-HI 25Proc. CPT-4 25584 Mar 28, 2007 Vital Signs Date/Time: Mar 28, 2007 Temperature 98.7 F Weight 202.8 lbs Height 69 in Respiratory Rate 16 /min Pulse 74 /min Blood Pressure Diastolic 82 mm Hg Blood Pressure Systolic 134 mm Hg BMI 29.95 Index Results No Known Results Summary Purpose eClinicalWorks Submission
--- OUTSIDE RECORDS SUMMARY | 2018-07-16 22:40 | XMS REPORT ---
Author Gatito Sher [facility] eClinicalWorks Address Unknown Phone Unavailable Care Team Providers Care President Ceo & Founder Name Role Phone Gatito Laurent CP Unavailable Allergies, Adverse Reactions, Alerts Substance Reaction Event Type Niaspan cold chills Non Drug Allergy Tricor Made his back hurt Non Drug Allergy Lipitor Leg Cramps Non Drug Allergy Crestor Leg Cramps Non Drug Allergy Problems Problem Type Condition Code Onset Dates Condition Status Assessment SD CERVIC REG 739.1 Active Assessment FLU VACCINATION V04.81 Active Assessment zCal Mag Spasm of Muscle [...] 250/50IU/125mg orally qd 1 Benicar HCT NDC 63459 12.5 mg-20 mg orally once a day 1 tab(s) Aspirin Low Strength NDC 7555 81 mg orally once a day 1 tab(s) Co-Q10 NDC 91686 100 mg orally once a day 1 cap(s) Simcor NDC 0 500mg/20mg po once daily Apr 17, 2008 1 metoprolol NDC 14972 50 mg orally QD 1 tab(s) Vitamin E NDC 0 500 IU Orally qd 1 Vitamin C with Demetria Hips NDC 8315 500 mg orally once a day 1 tab(s ) Vitamin D3 NDC 4871 4000 IU orally once a day 1 tab(s) [place] 3/6/9/ NDC 0 Fish 800/Flax 800 [place].PrimroseBlk Current Borage Oil/ 400mg orally qd 1am- 1 pm potassium NDC 0 90mg orally qd 1 Soma NDC 1329 250 mg orally QID September 16, 2008 1 tab(s) Plavix NDC 42522 75 mg orally once a day 1 tab(s) Centrum NDC 8493 Therapeutic Multiple Vitamins with Minerals orally once a day 1 tab(s) famotidine NDC 09264 20 mg orally PRN 1 tab(s) Trilipix NDC 672611 135 mg orally once a day Feb 03, 2009 1 cap(s) Procedures Procedure Coding System Code Date Admin; intravenous push, single or initial substance/drug CPT-4 44620 Feb 06, 2009 Admin of IV; each additional sequential intravenous push of a new substance/ drug CPT-4 66233 Feb 06, 2009 OMT 7-8 [facility] CPT-4 53933 Feb 06, 2009 Calcium Gluconate per 10ml CPT-4 J0610 Feb 06, 2009 INJ Magnesium CPT-4 J3475 Feb 06, 2009 IMMUNIZATION ADMIN; 1 VACCINEProc. CPT-4 59864 Feb 06, 2009 [facility] Adult CPT-4 56895 Feb 06, 2009 Vital Signs Date/Time: Feb 06, 2009 Blood Pressure Systolic 130 mm Hg Temperature 96.9 F Weight 190.6 lbs Respiratory Rate 16 /min Pulse 76 /min Blood Pressure Diastolic 80 mm Hg Results No Known Results Immunizations Vaccine Administration Date lu Adult Feb 06, 2009 Summary Purpose eClinicalWorks Submission
--- OUTSIDE RECORDS SUMMARY | 2018-07-16 22:41 | XMS REPORT ---
Author Gatito Sher [facility] eClinicalWorks Address Unknown Phone Unavailable Care Team Providers Care Stretch Press Operator Name Role Phone Gatito Laurent CP Unavailable Allergies, Adverse Reactions, Alerts Substance Reaction Event Type Niaspan cold chills Non Drug Allergy Tricor Made his back hurt Non Drug Allergy Lipitor Leg Cramps Non Drug Allergy Crestor Leg Cramps Non Drug Allergy Problems Problem Type Condition Code Onset Dates Condition Status Assessment SD PELVIC REG 739.5 Active Assessment [...] Active Assessment SD SACRAL REG 739.4 Active Medications Medication Code System Code Instructions Start Date End Date Status Dosage Avelox NDC 44020 400 mg orally once a day May 21, 2008 1 tab(s) Aspirin Low Strength NDC 7555 81 mg orally once a day 1 tab(s) famotidine NDC 25706 20 mg orally QAM 1 tab(s) Vitamin C with Demetria Hips NDC 8315 500 mg orally once a day 1 tab(s ) fish oil NDC 0 BID 1 cap Simcor NDC 0 500mg/20mg po once daily Apr 17, 2008 1 Red Yeast Rice NDC 492611 600 mg orally once a day 2 cap(s) Vitamin D2 NDC 6150 2,000 IU orally once a day 1 tab Coral Calcium NDC 0 250/50IU/125mg orally qd 1 Centrum NDC 8493 Therapeutic Multiple Vitamins with Minerals orally once a day 1 tab(s) Plavix NDC 04891 75 mg orally once a day 1 tab(s) potassium NDC 0 90mg orally qd 1 Rhodiola NDC 0 410 mg Orally QD 1 Nasacort AQ NDC 6148 55 mcg/inh intranasally once a day May 21, 2008 2 spray(s) metoprolol NDC 67779 50 mg orally once a day 1 tab(s) Vitamin E NDC 0 1000IU Orally qd 1 Procedures Procedure Coding System Code Date Hot Pack CPT-4 86584 Jul 01, 2008 OMT 7-8 Regions CPT-4 92160 Jul 01, 2008 Vital Signs Date/Time: Jul 01, 2008 Temperature 97.5 F Weight 191.6 lbs Height 69 in Respiratory Rate 14 /min Pulse 76 /min Blood Pressure Diastolic 80 mm Hg Blood Pressure Systolic 130 mm Hg BMI 28.29 Index Results No Known Results Summary Purpose eClinicalWorks Submission
--- OUTSIDE RECORDS SUMMARY | 2018-07-16 22:41 | XMS REPORT ---
Author Gatito Sher [facility] eClinicalWorks Address Unknown Phone Unavailable Care Team Providers Care Ironer Or Presser Name Role Phone Gatito Laurent CP Unavailable Allergies, Adverse Reactions, Alerts Substance Reaction Event Type N.K.D.A. Info Not Available Non Drug Allergy Problems Problem Type Condition Code Onset Dates Condition Status Assessment SD PELVIC REG 739.5 Active Assessment SD HEAD REGION 739.0 Active Assessment SD LUMBAR REG 739.3 Active Assessment SD THORAC REG 739.2 Active Assessment SD SACRAL REG 739.4 Active Problem BACK PAIN, LOW 724.2 Active Problem CAD Unspecified type of vessel 414.00 Active Problem Myositis 729.1 Active Assessment BACK PAIN, LOW 724.2 Active Assessment SD CERVIC REG 739.1 Active Assessment Myositis 729.1 Active Assessment SD Abd & other 739.9 [...] once a day 1 tab(s) metoprolol NDC 80825 50 mg orally once a day 1 tab(s) Vitamin E NDC 0 1000IU Orally qd 1 potassium NDC 0 90mg orally qd 1 Flax Seed Oil NDC 0 1000mg orally TID 1 cap Vitamin C with Demetria Hips NDC 8315 500 mg orally once a day 1 tab(s ) Benicar HCT NDC 43088 12.5 mg-20 mg orally once a day 1 tab(s) omega-3 polyunsaturated fatty acids NDC 81535 multi [place] 800mg orally QD 3 Plavix NDC 39268 75 mg orally once a day 1 tab(s) Lotrisone NDC 1293 0.05%-1% applied topically BID 1 giovanni Procedures Procedure Coding System Code Date OMT 7-8 [facility] CPT-4 96179 September 14, 2007 Hot Pack CPT-4 25732 September 14, 2007 T.P. 3-4 OR MORE CPT-4 98987 September 14, 2007 Dexamethasone 4mg/ml CPT-4 J1094 September 14, 2007 Vital Signs Date/Time: September 14, 2007 Temperature 98.2 F Weight 200.8 lbs Height 69 in Respiratory Rate 16 /min Pulse 90 /min Blood Pressure Diastolic 82 mm Hg Blood Pressure Systolic 132 mm Hg BMI 29.65 Index Results No Known Results Summary Purpose eClinicalWorks Submission
--- OUTSIDE RECORDS SUMMARY | 2018-07-16 22:41 | XMS REPORT ---
Author Gatito Sher [facility] eClinicalWorks Address Unknown Phone Unavailable Care Team Providers Care Watch Repairer Name Role Phone Gatito Laurent CP [...] Instructions Start Date End Date Status Dosage Red Yeast Rice NDC 189687 600 mg orally once a day 2 cap(s) Rhodiola NDC 0 410 mg Orally QD 1 metoprolol NDC 33240 50 mg orally once a day 1 tab(s) Plavix NDC 16230 75 mg orally once a day 1 tab(s) Vitamin E NDC 0 1000IU Orally qd 1 Coral Calcium NDC 0 250/50IU/125mg orally qd 1 Nasacort AQ NDC 6148 55 mcg/inh intranasally once a day May 21, 2008 2 spray(s) Vitamin C with Demetria Hips NDC 8315 500 mg orally once a day 1 tab(s ) Vitamin D2 NDC 6150 2,000 IU orally once a day 1 tab fish oil NDC 0 BID 1 cap potassium NDC 0 90mg orally qd 1 Avelox NDC 69959 400 mg orally once a day May 21, 2008 1 tab(s) Aspirin Low Strength NDC 7555 81 mg orally once a day 1 tab(s) famotidine NDC 27169 20 mg orally QAM 1 tab(s) Centrum NDC 8493 Therapeutic Multiple Vitamins with Minerals orally once a day 1 tab(s) Simcor NDC 0 500mg/20mg po once daily Apr 17, 2008 1 Procedures Procedure Coding System Code Date [facility] 7-8 [facility] CPT-4 28341 July 22, 2008 Vital Signs Date/Time: July 22, 2008 Temperature 96.6 F Weight 191.2 lbs Height 69 in BMI 28.23 Index Blood Pressure Diastolic 80 mm Hg Blood Pressure Systolic 122 mm Hg Results No Known Results Summary Purpose eClinicalWorks Submission
--- OUTSIDE RECORDS SUMMARY | 2018-07-16 22:41 | XMS REPORT ---
Author Gatito Sher [facility] eClinicalWorks Address Unknown Phone Unavailable Care Team Providers Care Laboratory Scientist Name Role Phone Gatito Laurent CP Unavailable Allergies, Adverse Reactions, Alerts Substance Reaction Event Type Niaspan cold chills Non Drug Allergy Tricor Made his back hurt Non Drug Allergy Lipitor Leg Cramps Non Drug Allergy Crestor Leg Cramps Non Drug Allergy Problems Problem Type Condition Code Onset Dates Condition Status Assessment SD LUMBAR REG 739.3 Active Assessment BACK PAIN, LOW 724.2 Active Assessment SD CERVIC REG 739.1 Active Problem otitis externa, chronic 380.23 Active Problem Dyslipidemia 272.9 Active Problem RASH NOS 782.1 Active Problem CAD Unspecified type of vessel 414.00 Active Assessment Myositis 729.1 Active Problem Myositis 729.1 Active Problem BACK [...] September 16, 2008 1 tab(s) famotidine NDC 96209 20 mg orally QAM 1 tab(s) Vitamin C with Demetria Hips NDC 8315 500 mg orally once a day 1 tab(s ) Nasacort AQ NDC 6148 55 mcg/inh intranasally once a day May 21, 2008 2 spray(s) Vitamin E NDC 0 1000IU Orally qd 1 fish oil NDC 0 BID 1 cap Coral Calcium NDC 0 250/50IU/125mg orally qd 1 potassium NDC 0 90mg orally qd 1 Avelox NDC 51019 400 mg orally once a day May 21, 2008 1 tab(s) Simcor NDC 0 500mg/20mg po once daily Apr 17, 2008 1 Rhodiola NDC 0 410 mg Orally QD 1 Centrum NDC 0793 Therapeutic Multiple Vitamins with Minerals orally once a day 1 tab(s) metoprolol NDC 91659 50 mg orally once a day 1 tab(s) Aspirin Low Strength NDC 7555 81 mg orally once a day 1 tab(s) Red Yeast Rice NDC 934128 600 mg orally once a day 2 cap(s) Vitamin D2 NDC 6150 2,000 IU orally once a day 1 tab Plavix NDC 11875 75 mg orally once a day 1 tab(s) Procedures Procedure Coding System Code Date T 7-8 [facility] CPT-4 74382 September 16, 2008 OFC/OUTPT E&M ESTAB MINOR 10 Proc. CPT-4 73181 September 16, 2008 Vital Signs Date/Time: September 16, 2008 Blood Pressure Systolic 128 mm Hg Temperature 96.9 F Weight 194.6 lbs Respiratory Rate 14 /min Pulse 78 /min Blood Pressure Diastolic 80 mm Hg Results No Known Results Summary Purpose eClinicalWorks Submission
--- OUTSIDE RECORDS SUMMARY | 2018-07-16 22:41 | XMS REPORT ---
Author Gatito Sher [facility] eClinicalWorks Address Unknown Phone Unavailable Care Team Providers Care Awning Craftsperson Name Role Phone Gatito Laurent CP Unavailable [...] Problem BACK PAIN, LOW 724.2 Active Assessment Dyslipidemia 272.9 Active Assessment SD THORAC REG 739.2 Active Assessment SD SACRAL REG 739.4 Active Assessment SD UPPER EXTR 739.7 Active Assessment SD PELVIC REG 739.5 Active Medications Medication Code System Code Instructions Start Date End Date Status Dosage Centrum NDC 8493 Therapeutic Multiple Vitamins with Minerals orally once a day 1 tab(s) Simcor NDC 0 500mg/20mg po qd 1 Vitamin E NDC 0 1000IU Orally qd 1 Diflucan NDC 3884 200 mg orally once a day Mar 20, 2008 1 tab(s) Vitamin C with Demetria Hips NDC 8315 500 mg orally once a day 1 tab(s ) Red Yeast Rice NDC 045951 600 mg orally once a day 2 cap(s) potassium NDC 0 90mg orally qd 1 Benicar HCT NDC 58501 12.5 mg-20 mg orally once a day 1 tab(s) Lotrisone NDC 1293 0.05%-1% applied topically BID-PRN 1 giovanni metoprolol NDC 05417 50 mg orally once a day 1 tab(s) Coral Calcium NDC 0 250/50IU/125mg orally qd 1 nystatin-triamcinolone topical NDC 89638 942730 units/g-0.1% applied topically TID 1 giovanni Aspirin Low Strength NDC 7555 81 mg orally once a day 1 tab(s) Rhodiola NDC 0 410 mg Orally QD 1 Lovaza NDC 735848 1 g oral BID 1 capsules Plavix NDC 37287 75 mg orally once a day 1 tab(s) Procedures Procedure Coding System Code Date T.P. 1-2 CPT-4 22355 May 02, 2008 Hot Pack CPT-4 83818 May 02, 2008 OMT 7-8 [facility] CPT-4 96705 May 02, 2008 Vital Signs Date/Time: May 02, 2008 Temperature 97.5 F Weight 188.4 lbs Height 69 in Respiratory Rate 16 /min Pulse 68 /min Blood Pressure Diastolic 70 mm Hg Blood Pressure Systolic 116 mm Hg BMI 27.82 Index Results No Known Results Summary Purpose eClinicalWorks Submission
--- OUTSIDE RECORDS SUMMARY | 2018-07-16 22:41 | XMS REPORT ---
Author Gatito Sher [facility] eClinicalWorks Address Unknown Phone Unavailable Care Team Providers Care Industrial Economist Name Role Phone Gatito Laurent CP Unavailable [...] potassium NDC 0 90mg orally qd 1 Lotrisone NDC 1293 0.05%-1% applied topically BID 1 giovanni Plavix NDC 89606 75 mg orally once a day 1 tab(s) metoprolol NDC 89359 50 mg orally once a day 1 tab(s) Coral Calcium NDC 0 250/50IU/125mg orally qd 1 Aspirin Low Strength NDC 7555 81 mg orally once a day 1 tab(s) Benicar HCT NDC 16110 12.5 mg-20 mg orally once a day 1 tab(s) Pepcid NDC 2232 20 mg orally qam 1 tab(s) Lovaza NDC 412870 1 g oral BID 1 capsules Lipitor NDC 6419 20 mg orally once a day 1 tab(s) Vitamin C with Demetria Hips NDC 8315 500 mg orally once a day 1 tab(s ) Vitamin E NDC 0 1000IU Orally qd 1 Centrum NDC 8493 Therapeutic Multiple Vitamins with Minerals orally once a day 1 tab(s) Procedures Procedure Coding System Code Date Hot Pack CPT-4 14736 September 28, 2007 OMT 7-8 [facility] CPT-4 16486 September 28, 2007 Vital Signs Date/Time: September 28, 2007 Temperature 98.6 F Weight 204.0 lbs Height 69 in Respiratory Rate 16 /min Pulse 80 /min Blood Pressure Diastolic 78 mm Hg Blood Pressure Systolic 122 mm Hg BMI 30.12 Index Results No Known Results Summary Purpose eClinicalWorks Submission
--- OUTSIDE RECORDS SUMMARY | 2018-07-16 22:41 | XMS REPORT ---
Author Gatito Sher [facility] eClinicalWorks Address Unknown Phone Unavailable Care Team Providers Care Histology Specialist Name Role Phone Gatito Laurent CP [...] 272.9 Active Problem Myositis 729.1 Active Assessment Rib Pain 786.50 Active Assessment Back pain 724.5 Active Assessment SD THORAC REG 739.2 Active Assessment SD SACRAL REG 739.4 Active Assessment Osteoarthritis 715.90 Active Assessment SD PELVIC REG 739.5 Active Assessment SD UPPER EXTR 739.7 Active Assessment SD LUMBAR REG 739.3 Active Medications Medication Code System Code Instructions Start Date End Date Status Dosage Trilipix NDC 006553 135 mg orally once a day Feb 03, 2009 1 cap(s) [place] 3/6/9/ NDC 0 Fish 800/Flax 800 [place].PrimroseBlk Current Borage Oil/ 400mg orally qd 1am- 1 pm Benicar HCT NDC 83602 12.5 mg-20 mg orally once a day 1 tab(s) Vitamin E NDC 0 500 IU Orally qd 1 Vitamin D3 NDC 4871 4000 IU orally once a day 1 tab(s) Plavix NDC 14286 75 mg orally once a day 1 tab(s) Centrum NDC 8493 Therapeutic Multiple Vitamins with Minerals orally once a day 1 tab(s) famotidine NDC 48689 20 mg orally PRN 1 tab(s) Simcor NDC 0 500mg/20mg po once daily Apr 17, 2008 1 Aspirin Low Strength NDC 7555 81 mg orally once a day 1 tab(s) Co-Q10 NDC 52456 100 mg orally once a day 1 cap(s) Vitamin C with Demetria Hips NDC 8315 500 mg orally once a day 1 tab(s ) Coral Calcium NDC 0 250/50IU/125mg orally qd 1 metoprolol NDC 11825 50 mg orally QD 1 tab(s) Soma NDC 1329 250 mg orally QID September 16, 2008 1 tab(s) potassium NDC 0 90mg orally qd 1 Procedures Procedure Coding System Code Date Admin; intravenous push, single or initial substance/drug CPT-4 79549 September Admin of IV; each additional sequential intravenous push of a new substance/ drug CPT-4 89250 September 30, 2009 OMT 7-8 [facility] CPT-4 63498 September 30, 2009 Calcium Gluconate per 10ml CPT-4 J0610 September 30, 2009 INJ Magnesium CPT-4 J3475 September 30, 2009 Vital Signs Date/Time: September 30, 2009 Blood Pressure Systolic 126 mm Hg Temperature 96.7 F Weight 194 lbs Respiratory Rate 16 /min Pulse 80 /min Blood Pressure Diastolic 74 mm Hg Results No Known Results Summary Purpose eClinicalWorks Submission
--- OUTSIDE RECORDS SUMMARY | 2018-07-16 22:42 | XMS REPORT ---
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 Assessment SD CERVIC REG 739.1 Active [...] Start Date End Date Status Dosage Vitamin D3 NDC 4871 4000 IU orally once a day 1 tab(s) Centrum NDC 8493 Therapeutic Multiple Vitamins with Minerals orally once a day 1 tab(s) Aspirin Low Strength NDC 7555 81 mg orally once a day 1 tab(s) Co-Q10 NDC 06557 100 mg orally once a day 1 cap(s) Plavix NDC 75469 75 mg orally once a day 1 tab(s) Coral Calcium NDC 0 250/50IU/125mg orally qd 1 Vitamin E NDC 0 500 IU Orally qd 1 Simcor NDC 0 500mg/20mg po once daily Apr 17, 2008 1 [place] 3/6/9/ NDC 0 Fish 800/Flax 800 [place].PrimroseBlk Current Borage Oil/ 400mg orally qd 1am- 1 pm Soma NDC 1329 250 mg orally QID September 16, 2008 1 tab(s) potassium NDC 0 90mg orally qd 1 metoprolol NDC 75139 50 mg orally QD 1 tab(s) Vitamin C with Demetria Hips NDC 8315 500 mg orally once a day 1 tab(s ) Benicar HCT NDC 61942 12.5 mg-20 mg orally once a day 1 tab(s) famotidine NDC 10353 20 mg orally PRN 1 tab(s) Trilipix NDC 043393 135 mg orally once a day Feb 03, 2009 1 cap(s) Procedures Procedure Coding System Code Date OMT 7-8 [facility] CPT-4 75810 August 04, 2009 OFC/OUTPT E&M ESTAB MINOR 10 Proc. CPT-4 69937 August 04, 2009 Vital Signs Date/Time: August 04, 2009 Blood Pressure Systolic 124 mm Hg Temperature 96.6 F Weight 199.6 lbs Respiratory Rate 16 /min Pulse 76 /min Blood Pressure Diastolic 72 mm Hg Results No Known Results Summary Purpose eClinicalWorks Submission
--- OUTSIDE RECORDS SUMMARY | 2018-07-16 22:42 | XMS REPORT ---
Author Gatito Sher [facility] eClinicalWorks Address Unknown Phone Unavailable Care Team Providers Care Director [employer] Name Role Phone Gatito Laurent CP Unavailable Allergies, Adverse Reactions, Alerts Substance Reaction Event Type Niaspan cold chills Non Drug Allergy Tricor Made his back hurt Non Drug Allergy Lipitor Leg Cramps Non Drug Allergy Crestor Leg Cramps Non Drug Allergy Problems Problem Type Condition Code Onset Dates Condition Status Assessment SD CERVIC REG 739.1 Active Assessment Rib fracture closed one 807.01 Active Assessment Rib Pain 786.50 Active Problem RASH NOS 782.1 Active Problem otitis externa, chronic 380.23 Active Problem Spasm of muscle 728.85 Active Problem BACK PAIN, LOW 724.2 Active Problem CAD Unspecified type of vessel 414.00 Active Problem Dyslipidemia 272.9 Active Problem Myositis 729.1 Active Assessment Back pain 724.5 Active Assessment Osteoarthritis 715.90 Active Assessment SD SACRAL REG 739.4 Active [...] QID September 16, 2008 1 tab(s) Vitamin D3 NDC 4871 4000 IU orally once a day 1 tab(s) Coral Calcium NDC 0 250/50IU/125mg orally qd 1 Co-Q10 NDC 23370 100 mg orally once a day 1 cap(s) Plavix NDC 91767 75 mg orally once a day 1 tab(s) [place] 3/6/9/ NDC 0 Fish 800/Flax 800 [place].PrimroseBlk Current Borage Oil/ 400mg orally qd 1am- 1 pm Benicar HCT NDC 25419 12.5 mg-20 mg orally once a day 1 tab(s) Centrum NDC 8493 Therapeutic Multiple Vitamins with Minerals orally once a day 1 tab(s) Lortab 7.5/500 NDC 2898 500 mg-7.5 mg orally Q6H September 04, 2009 1 tab(s) Trilipix NDC 789876 135 mg orally once a day Feb 03, 2009 1 cap(s) metoprolol NDC 22755 50 mg orally QD 1 tab(s) potassium NDC 0 90mg orally qd 1 famotidine NDC 05306 20 mg orally PRN 1 tab(s) Vitamin C with Demetria Hips NDC 8315 500 mg orally once a day 1 tab(s ) Aspirin Low Strength NDC 7555 81 mg orally once a day 1 tab(s) Vitamin E NDC 0 500 IU Orally qd 1 Procedures Procedure Coding System Code Date RADIOLOGIC EX RIBS UNI; 2 VIEProc. CPT-4 18246 September 04, 2009 DEXA BONE DENSITY, AXIAL CPT-4 41063 September 04, 2009 OFC/OUTPT E&M ESTAB LOW-MOD 1Proc. CPT-4 59325 September 04, 2009 Vital Signs Date/Time: September 04, 2009 Blood Pressure Systolic 130 mm Hg Temperature 97.5 F Weight 196.8 lbs Respiratory Rate 18 /min Pulse 68 /min Blood Pressure Diastolic 90 mm Hg Results No Known Results Summary Purpose eClinicalWorks Submission
--- OUTSIDE RECORDS SUMMARY | 2018-07-16 22:42 | XMS REPORT ---
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 Role Phone Gatito Laurent CP Unavailable Allergies, Adverse Reactions, Alerts Substance Reaction Event Type Niaspan cold chills Non Drug Allergy Tricor Made his back hurt Non Drug Allergy Lipitor Leg Cramps Non Drug Allergy Crestor Leg Cramps Non Drug Allergy Problems Problem Type Condition Code Onset Dates Condition Status Assessment SD Abd & other 739.9 Active Assessment BACK PAIN, LOW 724.2 Active Assessment zCal Mag Spasm of Muscle [...] potassium NDC 0 90mg orally qd 1 Aspirin Low Strength NDC 7555 81 mg orally once a day 1 tab(s) Co-Q10 NDC 17679 100 mg orally once a day 1 cap(s) famotidine NDC 51221 20 mg orally PRN 1 tab(s) [place] 3/6/9/ NDC 0 Fish 800/Flax 800 [place].PrimroseBlk Current Borage Oil/ 400mg orally qd 1am- 1 pm Simcor NDC 0 500mg/20mg po once daily Apr 17, 2008 1 Trilipix NDC 693635 135 mg orally once a day Feb 03, 2009 1 cap(s) Soma NDC 1329 250 mg orally QID September 16, 2008 1 tab(s) Coral Calcium NDC 0 250/50IU/125mg orally qd 1 Centrum ND 8493 Therapeutic Multiple Vitamins with Minerals orally once a day 1 tab(s) Plavix NDC 61823 75 mg orally once a day 1 tab([place]) [place] [address] 12.5 mg-20 mg orally once a day 1 tab(s) Vitamin D3 NDC 4871 4000 IU orally once a day 1 tab(s) Vitamin E NDC 0 500 IU Orally qd 1 Vitamin C with Demetria Hips NDC 8315 500 mg orally once a day 1 tab(s ) metoprolol NDC 18273 50 mg orally QD 1 tab(s) Procedures Procedure Coding System Code Date Admin; intravenous push, single or initial substance/drug CPT-4 97817 Feb Admin of IV; each additional sequential intravenous push of a new substance/ drug CPT-4 80486 Mar 13, 2009 OMT 7-8 Regions CPT-4 37808 Mar 13, 2009 Calcium Gluconate per 10ml CPT-4 J0610 Mar 13, 2009 INJ Magnesium CPT-4 J3475 Mar 13, 2009 Vital Signs Date/Time: Mar 13, 2009 Blood Pressure Systolic 124 mm Hg Temperature 97.4 F Weight 190.4 lbs Respiratory Rate 16 /min Pulse 72 /min Blood Pressure Diastolic 70 mm Hg Results No Known Results Summary Purpose eClinicalWorks Submission
--- OUTSIDE RECORDS SUMMARY | 2018-07-16 22:42 | XMS REPORT ---
Author Gatito Sher [facility] eClinicalWorks Address Unknown Phone Unavailable Care Team Providers Care [employer] Rep Name Role Phone Gatito Laurent CP Unavailable Allergies, Adverse Reactions, Alerts Substance Reaction Event Type Niaspan cold chills Non Drug Allergy Tricor Made his back hurt Non Drug Allergy Lipitor Leg Cramps Non Drug Allergy Crestor Leg Cramps Non Drug Allergy Problems Problem Type Condition Code Onset Dates Condition Status Assessment EXPOSURE TO HEPATITIS V01.79 Active Assessment Spasm of muscle 728.85 Active Assessment Dyslipidemia 272.9 Active Problem [...] Spasm of Muscle 728.85 Active Assessment SD SACRAL REG 739.4 Active Assessment SD PELVIC REG 739.5 Active Assessment SD UPPER EXTR 739.7 Active Assessment SD LUMBAR REG 739.3 Active Assessment SD THORAC REG 739.2 Active Assessment SD CERVIC REG 739.1 Active Medications Medication Code System Code Instructions Start Date End Date Status Dosage famotidine NDC 36408 20 mg orally PRN 1 tab(s) Benicar HCT NDC 08646 12.5 mg-20 mg orally once a day 1 tab(s) Vitamin E NDC 0 500 IU Orally qd 1 Soma NDC 1329 250 mg orally QID September 16, 2008 1 tab(s) potassium NDC 0 90mg orally qd 1 Vitamin D3 NDC 4871 4000 IU orally once a day 1 tab(s) Aspirin Low Strength NDC 7555 81 mg orally once a day 1 tab(s) Vitamin C with Demetria Hips NDC 8315 500 mg orally once a day 1 tab(s ) Plavix NDC 21660 75 mg orally once a day 1 tab(s) [place] 3/6/9/ NDC 0 Fish 800/Flax 800 [place].PrimroseBlk Current Borage Oil/ 400mg orally qd 1am- 1 pm Coral Calcium NDC 0 250/50IU/125mg orally qd 1 Co-Q10 NDC 50339 100 mg orally once a day 1 cap(s) Simcor NDC 0 500mg/20mg po once daily Apr 17, 2008 1 Centrum NDC 8493 Therapeutic Multiple Vitamins with Minerals orally once a day 1 tab(s) metoprolol NDC 85550 50 mg orally QD 1 tab(s) Trilipix NDC 618009 135 mg orally once a day Feb 03, 2009 1 cap(s) Procedures Procedure Coding System Code Date OMT 7-8 Regions CPT-4 22678 Feb 20, 2009 Admin; intravenous push, single or initial substance/drug CPT-4 99488 Feb OFC/OUTPT E&M ESTAB MINOR 10 Proc. CPT-4 84805 Feb 20, 2009 venipuncture VENOUS BLD VENIPProc. CPT-4 49981 Feb 20, 2009 ACUTE HEPATITIS PANEL Proc. CPT-4 33704 Feb 20, 2009 INJ Magnesium CPT-4 J3475 Feb 20, 2009 Admin of IV; each additional sequential intravenous push of a new substance/ drug CPT-4 58261 Feb 20, 2009 COMPREHENSIVE METABOLIC PANELProc. CPT-4 74351 Feb 20, 2009 Calcium Gluconate per 10ml CPT-4 J0610 Feb 20, 2009 Vital Signs Date/Time: Feb 20, 2009 Blood Pressure Systolic 130 mm Hg Temperature 97 F Weight 191 lbs Respiratory Rate 16 /min Pulse 72 /min Blood Pressure Diastolic 70 mm Hg Results No Known Results Summary Purpose eClinicalWorks Submission
--- NOTE | 2018-07-16 23:19 | ED Cardiac General ---
History of Present Illness General Chief Complaint: Chest Pain Stated Complaint: RAPID HEART RATE Nursing Triage Note: CHEST PAIN AND RAPID HEART RATE. PATIENT STATES HE IS IN AFIB Source: patient History of Present Illness Date Seen by Provider: Jul 16, 2018 Time Seen by Provider: 10:35 Initial Comments 68-year-old male who presents with palpitations, some chest discomfort. Reports that he is in A. fib and his heart rate is been going up. He denies any shortness of breath. He reports that he has had these symptoms on and off for the past. He presents today because the monitor that he had his heart rate was in the 120s. He currently denies any symptoms. He does report that he has "fibromyalgia" and thinks he has some inflammation in his chest wall. Reports that he has been having this on and off since May. He has seen a can intake worker since he started. He is on sotalol for his A. fib and has a pacemaker because sometimes his heart rate will drop too low with the sotalol. He denies any fever, chills or any other systemic complaints at this time. NTG SL TAPE SEWER: No ASA po TAPE SEWER: No Allergies and Home Medications Patient Home Medication List Home Medication List Reviewed: Yes Review of Systems Review of Systems Constitutional: No chills, No diaphoresis EENTM: No Blurred Vision, No Double Vision Respiratory: Denies Cough, Denies Shortness of Air, Denies SOA With Exertion Cardiovascular: Irregular Heart Rate, Palpitations Musculoskeletal: other (Occasional diffuse muscle pain "fibromyalgia" per him) Skin: no symptoms reported Psychiatric/Neurological: No Symptoms Reported Endocrine: No Symptoms Reported Hematologic/Lymphatic: No Symptoms Reported Past Pgguxdy-Bhudiq-Qovgrc Hx Past Med/Social Hx: Reviewed Nursing Past Med/Soc Hx Patient Social History Alcohol Use: Regular Use Number of Drinks Today: 2 Alcohol Beverage of Choice: Beer Recreational Drug Use: No Smoking Status: Former Smoker Former Smoker, Quit: May 16, 1988 2nd Hand Smoke Exposure: No Recent Foreign Travel: No Contact w/Someone Who Travel: No Recent Infectious Disease Expo: No Recent Hopitalizations: No Physical Abuse: No Sexual Abuse: No Mistreated: No Fear: No Immunizations Up To Date Tetanus Booster (TDap): Unknown Date of Influenza Vaccine: Feb 24, 2019 Seasonal Allergies Seasonal Allergies: No Past Medical History Surgeries: Yes (BILAT KNEE ARTHROSCOPY, ULNA NERVE SURGERY, CARPAL TUNNEL R, COLONOSCOPY ) Cardiac, Coronary Stent, Pacemaker, Tonsillectomy Sleep Apnea Currently Using CPAP: No Currently Using BIPAP: No Cardiac: Yes Angina, Atrial Fibrillation, Heart Attack Neurological: No Sexually Transmitted Disease: No HIV/AIDS: No Genitourinary: No Gastrointestinal: No Musculoskeletal: No Endocrine: No HEENT: No Hearing Impairment: Denies Cancer: Yes Skin Did You Recieve Any Treatments: Yes What Type of Treatment Did You: Surgical Intervention SQUAMOUS CELL CARCINOMA REMOVAL Psychosocial: No Integumentary: No Blood Disorders: No Physical Exam Vital Signs Vital Signs - First Documented 07/16/18 22:37 Temp 97.3 Pulse 79 Resp 13 B/P (MAP) 156/113 (127) Pulse Ox 97 O2 Delivery Room Air Capillary Refill : Less Than 3 Seconds Height, Weight, BMI Height: 5'9.00" Weight: 180lbs. oz. 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 Norm as Tested Skin: Normal Color, Warm/Dry Lymphatic: No Adenopathy Progress/Results/Core Measures Results/Orders Lab Results Laboratory Tests Test 07/16/18 22:33 Range/Units White Blood Count 10.3 4.3-11.0 10^3/uL Red Blood Count 4.93 4.35-5.85 10^6/uL Hemoglobin 16.1 13.3-17.7 G/DL Hematocrit 45 40-54 % Mean Corpuscular Volume 92 80-99 FL Mean Corpuscular Hemoglobin 33 25-34 PG Mean Corpuscular Hemoglobin Concent 36 32-36 G/DL Red Cell Distribution Width 12.4 10.0-14.5 % Platelet Count 320 130-400 10^3/uL Mean Platelet Volume 9.1 7.4-10.4 FL Neutrophils (%) (Auto) 58 42-75 % Lymphocytes (%) (Auto) 28 12-44 % Monocytes (%) (Auto) 11 0-12 % Eosinophils (%) (Auto) 2 0-10 % Basophils (%) (Auto) 1 0-10 % Neutrophils # (Auto) 5.9 1.8-7.8 X 10^3 Lymphocytes # (Auto) 2.9 1.0-4.0 X 10^3 Monocytes # (Auto) 1.1 H 0.0-1.0 X 10^3 Eosinophils # (Auto) 0.3 0.0-0.3 10^3/uL Basophils # (Auto) 0.1 0.0-0.1 10^3/uL Prothrombin Time 14.3 12.2-14.7 SEC INR Comment 1.1 0.8-1.4 Activated Partial Thromboplast Time 29 24-35 SEC Sodium Level 137 135-145 MMOL/L Potassium Level 3.8 3.6-5.0 MMOL/L Chloride Level 98 98-107 MMOL/L Carbon Dioxide Level 27 21-32 MMOL/L Anion Gap 12 5-14 MMOL/L Blood Urea Nitrogen 15 7-18 MG/DL Creatinine 0.95 0.60-1.30 MG/DL Estimat Glomerular Filtration Rate > 60 BUN/Creatinine Ratio 16 Glucose Level 117 H 70-105 MG/DL Calcium Level 9.0 8.5-10.1 MG/DL Corrected Calcium 8.8 8.5-10.1 MG/DL Magnesium Level 2.1 1.8-2.4 MG/DL Total Bilirubin 0.7 0.1-1.0 MG/DL Aspartate Amino Transf (AST/SGOT) 28 5-34 U/L Alanine Aminotransferase (ALT/SGPT) 26 0-55 U/L Alkaline Phosphatase 67 40-136 U/L Troponin T 11 <=15 NG/L Total Protein 6.9 6.4-8.2 GM/DL Albumin 4.2 3.2-4.5 GM/DL My Orders Orders - GUSTAFSON,ALIYAH L DO Cbc With Automated Diff (07/16/18 22:41) Magnesium (07/16/18 22:41) Chest 1 View Ap/Pa Only (07/16/18 22:41) Ekg Tracing (07/16/18 22:41) Comprehensive Metabolic Panel (07/16/18 22:41) Protime With Inr (07/16/18 22:41) Partial Thromboplastin Time (07/16/18 22:41) O2 (07/16/18 22:41) Monitor-Rhythm Ecg Trace Only (07/16/18 22:41) Saline Lock/Iv-Start (07/16/18 22:41) Vital Signs/I&O 07/16/18 22:37 Temp 97.3 Pulse 79 Resp 13 B/P (MAP) 156/113 (127) Pulse Ox 97 O2 Delivery Room Air Blood Pressure Mean: 127 Progress Progress Note : Progress Note Patient remained stable throughout stay. Patient heart rate sdtayed in the 70s and 80s. Patient states he feels completely fine and is ready to be discharged home. His chest discomfort is not new has been going on for years and is very stable. It is resolved at this time. He will follow-up with his can intake worker as needed. He is discharged home in stable condition. Initial ECG Impression Date: Jul 16, 2018 Initial ECG Impression Time: 22:33 Initial ECG Rate: 81 Comment Atrial pacemaker, no acute changes Departure Impression Primary Impression: Intermittent palpitations Disposition: 01 HOME, SELF-CARE Condition: Stable Departure-Patient Inst. Referrals: NO,LOCAL PHYSICIAN (PCP) Primary Care Physician Patient Instructions: Chest Pain That Is Not Caused by the Heart (DC), Atrial Fibrillation (DC) Add. Discharge Instructions: Follow up with can intake worker in the next week for continuation of care and recheck if symptoms All discharge instructions reviewed with patient and/or family. Voiced understanding. ALIYAH GUSTAFSON DO Jul 16, 2018 23:19
[2018-07-16 23:21] LABS: BUN/CREATININE RATIO 16; CARBON DIOXIDE 27 MMOL/L (21-32); CHLORIDE 98 MMOL/L (98-107); CREATININE SERUM 0.95 MG/DL (0.60-1.30); GFR ESTIMATED > 60; POTASSIUM 3.8 MMOL/L (3.6-5.0); SODIUM 137 MMOL/L (135-145)
[2018-07-16 23:22] LABS: ALANINE AMINOTRANSFERASE 26 U/L (0-55); ALBUMIN 4.2 GM/DL (3.2-4.5); ALKALINE PHOSPHATASE 67 U/L (40-136); BILIRUBIN,TOTAL 0.7 MG/DL (0.1-1.0); GLUCOSE 117 MG/DL (70-105); MAGNESIUM 2.1 MG/DL (1.8-2.4); TOTAL PROTEIN 6.9 GM/DL (6.4-8.2)
[2018-07-16 23:23] LABS: BASOPHILS % (AUTO) 1 % (0-10); EOSINOPHILS % (AUTO) 2 % (0-10); HEMATOCRIT 45 % (40-54); HEMOGLOBIN 16.1 G/DL (13.3-17.7); LYMPHOCYTES % (AUTO) 28 % (12-44); MEAN CORPUSCULAR HEMOGLOBIN 33 PG (25-34); MEAN CORPUSCULAR HGB CONC 36 G/DL (32-36); MEAN CORPUSCULAR VOLUME 92 FL (80-99); MEAN PLATELET VOLUME 9.1 FL (7.4-10.4); MONOCYTES % (AUTO) 11 % (0-12); NEUTROPHILS % (AUTO) 58 % (42-75); PLATELET COUNT 320 10^3/uL (130-400); RED CELL DISTRIBUTION WIDTH 12.4 % (10.0-14.5); WHITE BLOOD COUNT 10.3 10^3/uL (4.3-11.0)
[2018-07-16 23:24] LABS: BASOPHILS # (AUTO) 0.1 10^3/uL (0.0-0.1); EOSINOPHILS # (AUTO) 0.3 10^3/uL (0.0-0.3); LYMPHOCYTES # (AUTO) 2.9 X 10^3 (1.0-4.0); MONOCYTES # (AUTO) 1.1 X 10^3 (0.0-1.0); NEUTROPHILS # (AUTO) 5.9 X 10^3 (1.8-7.8)
[2018-07-16 23:27] LABS: INR 1.1 (0.8-1.4); PROTHROMBIN TIME PATIENT 14.3 SEC (12.2-14.7)
[2018-07-16] MEDS ORDERED: SIMV80TA21 (23:51)
[2018-07-16] MEDS ORDERED: GABA-488 (23:51)
[2018-07-16] MEDS ORDERED: CLOP75TA28 (23:51)
[2018-07-16] MEDS ORDERED: FAMO20TA5 (23:51)
[2018-07-16] MEDS ORDERED: SOTA80TA (23:51)
[2018-07-16] MEDS ORDERED: ISOS30TA3 (23:51)
[2018-07-17 00:03] VITALS: BP 112/87
--- NOTE | 2018-07-17 05:32 | Diagnostic Imaging Report ---
INDICATION: Chest pain COMPARISON: None FINDINGS: Single frontal view of the chest demonstrates normal heart size and pulmonary vascularity. The lungs are well aerated and clear. No large pleural effusion or pneumothorax is seen. The visualized osseous structures show no acute abnormalities. Left-sided dual-lead pacemaker is noted. IMPRESSION: 1. No acute cardiopulmonary process. Dictated by: Dictated on workstation # [id number]
== END 2018-07-17 00:03 | disposition home or self-care (01) ==
LOC: ER FS 22:31
DX: R00.2 Palpitations (principal); I48.91 Unspecified atrial fibrillation; G47.30 Sleep apnea, unspecified; I25.2 Old myocardial infarction; I20.9 Angina pectoris, unspecified; Z85.828 Personal history of other malignant neoplasm of skin; Z95.0 Presence of cardiac pacemaker; Z87.891 Personal history of nicotine dependence; Z95.5 Presence of coronary angioplasty implant and graft; Z90.89 Acquired absence of other organs
CPT/HCPCS: 36415; 71045; 80053; 83735; 84484; 85025; 85610; 85730; 93041

== ENCOUNTER 2018-08-13 09:52 | Emergency (ER) | payer MEDICARE ==
[~2018-08-13] VITALS: Ht 175.3 cm; Wt 81.6 kg
[~2018-08-13 09:52] MED LIST: CLOP75TA28; FAMO20TA5; GABA-488; ISOS30TA3; SIMV80TA21; SOTA80TA
[2018-08-13 10:24] LABS: HEMOGLOBIN 15.5 G/DL (13.3-17.7); MEAN PLATELET VOLUME 9.3 FL (7.4-10.4); RED CELL DISTRIBUTION WIDTH 12.5 % (10.0-14.5); WHITE BLOOD COUNT 8.5 10^3/uL (4.3-11.0)
--- NOTE | 2018-08-13 10:27 | ED Head Injury ---
General Chief Complaint: Head/Cervical Problems Stated Complaint: GASH ON FOREHEAD Nursing Triage Note: ARRRIVED VIA AMB TO ROOM 03. STATES HE WAS USING A DRILL BIT THIS AM WHEN THE DRILL BROKE MAKING HIM HIT HIS HEAD ON THE METAL HE WAS DRILLING CAUSING A LAC TO THE FOREHEAD. DENIES LOC OR NECK PAIN. IS ON BLOOD THINNERS. Source: patient Exam Limitations: no limitations History of Present Illness Date Seen by Provider: Aug 13, 2018 Time Seen by Provider: 10:05 Initial Comments 68-year-old male on [place] presents after having struck his head with a drill. He did not have loss of consciousness but states it was a very firm striking of his head. He is not had any visual or neurologic symptoms. He's had brisk bleeding from the laceration. He was referred here from urgent care due to being on blood thinners. He has a history of atrial fibrillation and has a pacemaker. He's had no bleeding complications. Occurred: just prior to arrival Allergies and Home Medications Allergies Coded Allergies: amiodarone (Verified Allergy, Unknown, 08/13/18) Patient Home Medication List Home Medication List Reviewed: Yes Review of Systems Review of Systems Constitutional: no symptoms reported Eyes: No Symptoms Reported Ears, Nose, Mouth, Throat: no symptoms reported Respiratory: no symptoms reported Cardiovascular: no symptoms reported Gastrointestinal: no symptoms reported Genitourinary: no symptoms reported Musculoskeletal: neck pain (chronic) Skin: see HPI Psychiatric/Neurological: No Symptoms Reported Endocrine: No Symptoms Reported Hematologic/Lymphatic: No Symptoms Reported Past Kmdpydh-Eherde-Kbszdt Hx Patient Social History Alcohol Use: Denies Use Alcohol Beverage of Choice: Beer Recreational Drug Use: No Smoking Status: Former Smoker Former Smoker, Quit: May 16, 1988 2nd Hand Smoke Exposure: No Recent Foreign Travel: No Contact w/Someone Who Travel: No Recent Infectious Disease Expo: No Recent Hopitalizations: No Immunizations Up To Date Tetanus Booster (TDap): Less than 5yrs Date of Influenza Vaccine: Feb 24, 2019 Seasonal Allergies Seasonal Allergies: No Past Medical History Surgeries: Yes (BILAT KNEE ARTHROSCOPY, ULNA NERVE SURGERY, CARPAL TUNNEL R, COLONOSCOPY ) Cardiac, Coronary Stent, Pacemaker, Tonsillectomy Respiratory: Yes Sleep Apnea Currently Using CPAP: No Currently Using BIPAP: No Cardiac: Yes Angina, Atrial Fibrillation, Heart Attack Neurological: No Sexually Transmitted Disease: No HIV/AIDS: No Genitourinary: No Gastrointestinal: No Musculoskeletal: No Endocrine: No HEENT: No Hearing Impairment: Denies Cancer: Yes Skin Did You Recieve Any Treatments: Yes What Type of Treatment Did You: Surgical Intervention Psychosocial: No Integumentary: No Blood Disorders: No Physical Exam Vital Signs Vital Signs - First Documented 08/13/18 10:00 Temp 97.2 Pulse 73 Resp 16 B/P (MAP) 126/60 (82) Pulse Ox 94 O2 Delivery Room Air Capillary Refill : Less Than 3 Seconds Height, Weight, BMI Height: 5'9.00" Weight: 180lbs. oz. 81.551329xm; BMI Method:Stated General Appearance: WD/WN, no apparent distress HEENT: PERRL/EOMI, TMs normal, pharynx normal; No scleral icterus (R), No scleral icterus (L) Neck: non-tender, full range of motion, supple, normal inspection Cardiovascular: irregularly irregular, other (pacemaker noted) Respiratory: chest non-tender, lungs clear, normal breath sounds, no respiratory distress, no accessory muscle use Gastrointestinal: normal bowel sounds, non tender, soft, no organomegaly, no pulsatile mass Back: normal inspection, no CVA tenderness, no vertebral tenderness Extremities: normal range of motion, non-tender, normal inspection, no pedal edema, no calf tenderness, normal capillary refill, pelvis stable Psychiatric: alert, oriented x 3 Crainal Nerves: normal hearing, normal speech, PERRL Coordination/Gait: normal finger to nose, normal gait, negative Romberg's sign Motor/Sensory: no motor deficit, no sensory deficit, no pronator drift Skin: normal color, warm/dry, other (4 cm irregular forehead laceration, moderate bleeding until pressure applied.) Lymphatic: no adenopathy Alpine Coma Score Best Eye Response: (4) Open Spontaneously Best Verbal Response: (5) Oriented Best Motor Response: (6) Obeys Commands Fatimah Total: 15 Procedures/Interventions Wound Location: Face Wound Length (cm): 4 Wound's Depth, Shape: superficial Wound Explored: clean Betadine Prep?: Yes Anesthesia: 1% Lidocaine Suture: Ethlion Suture Size: 6-0 Number of Sutures: 6 Sterile Dressing Applied?: Yes Progress Patient tolerated repair well. Remained neurologically intact. Progress/Results/Core Measures Results/Orders Lab Results Laboratory Tests Test 08/13/18 10:05 Range/Units White Blood Count 8.5 4.3-11.0 10^3/uL Red Blood Count 4.80 4.35-5.85 10^6/uL Hemoglobin 15.5 13.3-17.7 G/DL Hematocrit 45 40-54 % Mean Corpuscular Volume 94 80-99 FL Mean Corpuscular Hemoglobin 32 25-34 PG Mean Corpuscular Hemoglobin Concent 35 32-36 G/DL Red Cell Distribution Width 12.5 10.0-14.5 % Platelet Count 293 130-400 10^3/uL Mean Platelet Volume 9.3 7.4-10.4 FL My Orders Orders - NASIMA HIDALGO MD Ct Head Wo (08/13/18 10:09) Cbc No Diff (08/13/18 10:09) Protime With Inr (08/13/18 10:09) Partial Thromboplastin Time (08/13/18 10:09) Lidocaine 1% Inj 20 Ml (Xylocaine 1% Inj (08/13/18 10:35) Medications Given in ED Current Medications Medications Dose Ordered Sig/Sujatha Route Start Time Stop Time Status Last Admin Dose Admin Lidocaine HCl 20 ml STK-MED ONCE .ROUTE 08/13/18 10:35 08/13/18 10:38 DC 08/13/18 10:46 20 ML Vital Signs/I&O 08/13/18 10:00 Temp 97.2 Pulse 73 Resp 16 B/P (MAP) 126/60 (82) Pulse Ox 94 O2 Delivery Room Air Blood Pressure Mean: 82 Diagnostic Imaging Diagonstic Imaging: CT Plain Films/CT/US/NM/MRI: head Comments NAME: CALEB POOLE [facility] REC#: [id number] PT STATUS: REG ER : 1950 PHYSICIAN: NASIMA HIDALGO MD ADMIT DATE: 08/13/18/ER FS Draft Date of Exam:08/13/18 CT HEAD WO PROCEDURE: CT head without contrast. TECHNIQUE: Multiple contiguous axial images were obtained through the brain without the use of intravenous contrast. Auto Exposure Controls were utilized during the CT exam to meet ALARA standards for radiation dose reduction. INDICATION: Trauma to head, cut mid forehead on a sharp object today. CORRELATION STUDY: None FINDINGS: Ventricles and sulci unremarkable. No midline shift or mass effect. No evidence to suggest pneumocephalus. No intracranial hemorrhage. Small bony protuberance left frontal convexity could reflect very small meningioma. The bony calvarium is intact. The paranasal sinuses are clear. No air-fluid levels. Soft tissue defect in the right frontal region. No definitive foreign body. IMPRESSION: 1. Negative for acute traumatic intracranial abnormality. 2. Frontal soft tissue scalp laceration. Dictated on workstation # [id number] Dict: 08/13/18 1038 Trans: 08/13/18 1043 GEORGE [id number] Interpreted by: JOSÉ ANTONIO NELSON DO Electronically signed by: Departure Impression Primary Impression: Facial laceration Qualified Codes: S01.81XA - Laceration without foreign body of other part of head, initial encounter Additional Impression: Anticoagulant effect Disposition: 01 HOME, SELF-CARE Condition: Improved Departure-Patient Inst. Decision time for Depature: 11:12 Referrals: SHEEBA BEDOLLA DO (PCP/Family) Primary Care Physician 5 days, sooner as needed Patient Instructions: Minor Head Injury (DC), Laceration Repair With Stitches ( DC) NASIMA HIDALGO MD Aug 13, 2018 10:27
[2018-08-13] MEDS ORDERED: LIDOCAINE 1% INJ 20 ML 20 ML VIAL ONE (10:35)
--- NOTE | 2018-08-13 10:44 | Diagnostic Imaging Report ---
PROCEDURE: CT head without contrast. TECHNIQUE: Multiple contiguous axial images were obtained through the brain without the use of intravenous contrast. Auto Exposure Controls were utilized during the CT exam to meet ALARA standards for radiation dose reduction. INDICATION: Trauma to head, cut mid forehead on a sharp object today. CORRELATION STUDY: None FINDINGS: Ventricles and sulci unremarkable. No midline shift or mass effect. No evidence to suggest pneumocephalus. No intracranial hemorrhage. Small bony protuberance left frontal convexity could reflect very small meningioma. The bony calvarium is intact. The paranasal sinuses are clear. No air-fluid levels. Soft tissue defect in the right frontal region. No definitive foreign body. IMPRESSION: 1. Negative for acute traumatic intracranial abnormality. 2. Frontal soft tissue scalp laceration. Dictated by: Dictated on workstation # [id number]
[2018-08-13 11:22] LABS: INR 1.1 (0.8-1.4); PROTHROMBIN TIME PATIENT 13.8 SEC (12.2-14.7)
[2018-08-13 11:28] VITALS: BP 117/65
== END 2018-08-13 11:28 | disposition home or self-care (01) ==
LOC: EDUNIT# 09:52 → ER FS 09:54
DX: S01.81XA Laceration without foreign body of other part of head, initial encounter (principal); I48.91 Unspecified atrial fibrillation; G47.30 Sleep apnea, unspecified; I25.2 Old myocardial infarction; R40.2142 Coma scale, eyes open, spontaneous, at arrival to emergency department; R40.2252 Coma scale, best verbal response, oriented, at arrival to emergency department; R40.2362 Coma scale, best motor response, obeys commands, at arrival to emergency department; Z85.828 Personal history of other malignant neoplasm of skin; Z95.0 Presence of cardiac pacemaker; Z87.891 Personal history of nicotine dependence; Z95.5 Presence of coronary angioplasty implant and graft; Z90.89 Acquired absence of other organs; Z79.01 Long term (current) use of anticoagulants; Z88.8 Allergy status to other drugs, medicaments and biological substances; W22.09XA Striking against other stationary object, initial encounter
CPT/HCPCS: 12001; 36415; 70450; 85027; 85610; 85730

== ENCOUNTER 2018-11-07 10:12 | Emergency (ER) | payer MEDICARE ==
[~2018-11-07] VITALS: Ht 172.7 cm; Wt 79.4 kg
[~2018-11-07 10:12] MED LIST changes: -SOTA80TA; +STL80T
--- OUTSIDE RECORDS SUMMARY | 2018-11-07 10:23 | XMS REPORT | Continuity of Care Document ---
Author Organization Unknown Address Unknown Allergies Active Description Code Type Severity Reaction Onset Reported/Identified Relationship to Patient Clinical Status Yes amiodarone [id number] Drug Allergy Unknown N/A 08/13/2018 Medications There is no data. 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 OF OTHER MALIGNANT NEOP 07/17/2018 GUSTAFSON DO, ALIYAH L Ot Z87.891 PERSONAL HISTORY OF NICOTINE DEPENDENCE 07/17/2018 GUSTAFSON DO, ALIYAH L Ot Z90.89 ACQUIRED ABSENCE OF OTHER ORGANS 07/17/2018 GUSTAFSON DO, ALIYAH L Ot Z95.0 PRESENCE OF CARDIAC PACEMAKER 07/17/2018 GUSTAFSON DO, ALIYAH L Ot Z95.5 PRESENCE OF CORONARY ANGIOPLASTY IMPLANT 07/18/2018 GUSTAFSON DO, ALIYAH L Ot G47.30 SLEEP APNEA, UNSPECIFIED 07/18/2018 GUSTAFSON DO, ALIYAH L Ot I20.9 ANGINA PECTORIS, UNSPECIFIED 07/18/2018 GUSTAFSON DO, ALIYAH L Ot I25.2 OLD MYOCARDIAL INFARCTION 07/18/2018 GUSTAFSON DO, ALIYAH L Ot I48.91 UNSPECIFIED ATRIAL FIBRILLATION 07/18/2018 GUSTAFSON DO, ALIYAH L Ot R00.2 PALPITATIONS 07/18/2018 GUSTAFSON DO, ALIYAH L Ot Z85.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 OF OTHER MALIGNANT NEOP 07/18/2018 GUSTAFSON DO, ALIYAH L Ot Z87.891 PERSONAL HISTORY OF NICOTINE DEPENDENCE 07/18/2018 GUSTAFSON DO, ALIYAH L Ot 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 ACQUIRED ABSENCE OF OTHER ORGANS 07/18/2018 GUSTAFSON DO, ALIYAH L Ot Z95.0 PRESENCE OF CARDIAC PACEMAKER 07/18/2018 GUSTAFSON DO, ALIYAH L Ot Z95.5 PRESENCE OF CORONARY ANGIOPLASTY IMPLANT 08/10/2018 GUSTAFSON DO, ALIYAH L Ot G47.30 SLEEP APNEA, UNSPECIFIED 08/10/2018 GUSTAFSON DO, ALIYAH L Ot I20.9 ANGINA PECTORIS, UNSPECIFIED 08/10/2018 GUSTAFSON DO, ALIYAH L Ot I25.2 OLD MYOCARDIAL INFARCTION 08/10/2018 GUSTAFSON DO, ALIYAH L Ot I48.91 UNSPECIFIED ATRIAL FIBRILLATION 08/10/2018 GUSTAFSON DO, ALIYAH L Ot R00.2 PALPITATIONS 08/10/2018 GUSTAFSON DO, ALIYAH L Ot Z85.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 OF OTHER MALIGNANT NEOP 08/10/2018 GUSTAFSON DO, ALIYAH L Ot Z87.891 PERSONAL HISTORY OF NICOTINE DEPENDENCE 08/10/2018 GUSTAFSON DO, ALIYAH L Ot 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 ACQUIRED ABSENCE OF OTHER ORGANS 08/10/2018 GUSTAFSON DO, ALIYAH L Ot Z95.0 PRESENCE OF CARDIAC PACEMAKER 08/10/2018 GUSTAFSON DO, ALIYAH L Ot Z95.5 PRESENCE OF CORONARY ANGIOPLASTY IMPLANT 08/13/2018 NASIMA HIDALGO MD Ot G47.30 SLEEP APNEA, UNSPECIFIED 08/13/2018 NASIMA HIDALGO MD Ot I25.2 OLD MYOCARDIAL INFARCTION 08/13/2018 NASIMA HIDALGO MD Ot I48.91 UNSPECIFIED ATRIAL FIBRILLATION 08/13/2018 NASIMA HIDALGO MD Ot R40.2142 COMA SCALE, EYES OPEN, SPONTANEOUS, EMR 08/13/2018 NASIMA HIDALGO MD Ot R40.2252 COMA SCALE, BEST VERBAL RESPONSE, ORIENT 08/13/2018 NASIMA HIDALGO MD Ot R40.2362 COMA SCALE, BEST MOTOR RESPONSE, OBEYS C 08/13/2018 NASIMA HIDALGO MD Ot S01.81XA LACERATION W/O FOREIGN BODY OF OTH PART 08/13/2018 NASIMA HIDALGO MD Ot W22.09XA STRIKING AGAINST OTHER STATIONARY OBJECT 08/13/2018 NASIMA HIDALGO MD Ot Z79.01 ALF (CURRENT) USE OF ANTICOAGULANT 08/13/2018 NASIMA HIDALGO MD Ot Z85.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 OF OTHER MALIGNANT NEOP 08/13/2018 NASIMA HIDALGO MD, Ot Z87.891 PERSONAL HISTORY OF NICOTINE DEPENDENCE 08/13/2018 NASIMA HIDALGO MD, Ot Z88.8 ALLERGY STATUS TO OTH DRUG/MEDS/BIOL SUB 08/13/2018 NASIMA HIDALGO MD, Ot Z90.89 ACQUIRED ABSENCE OF OTHER ORGANS 08/13/2018 NASIMA HIDALGO MD Ot Z95.0 PRESENCE OF CARDIAC PACEMAKER 08/13/2018 NASIMA HIDALGO MD Ot Z95.5 PRESENCE OF CORONARY ANGIOPLASTY IMPLANT 08/18/2018 NASIMA HIDALGO MD Ot G47.30 SLEEP APNEA, UNSPECIFIED 08/18/2018 NASIMA HIDALGO MD, Ot I25.2 OLD MYOCARDIAL INFARCTION 08/18/2018 NASIMA HIDALGO MD, Ot I48.91 UNSPECIFIED ATRIAL FIBRILLATION 08/18/2018 NASIMA HIDALGO MD, Ot R40.2142 COMA SCALE, EYES OPEN, SPONTANEOUS, EMR 08/18/2018 NASIMA HIDALGO MD, Ot R40.2252 COMA SCALE, BEST VERBAL RESPONSE, ORIENT 08/18/2018 NASIMA HIDALGO MD, Ot R40.2362 COMA SCALE, BEST MOTOR RESPONSE, OBEYS C 08/18/2018 NASIMA HIDALGO MD, Ot S01.81XA LACERATION W/O FOREIGN BODY OF OTH PART 08/18/2018 NASIMA HIDALGO MD, Ot W22.09XA STRIKING AGAINST OTHER STATIONARY OBJECT 08/18/2018 NASIMA HIDALGO MD Ot Z79.01 ALF (CURRENT) USE OF ANTICOAGULANT 08/18/2018 NASIMA HIDALGO MD Ot Z85.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 OF OTHER MALIGNANT NEOP 08/18/2018 NASIMA HIDALGO MD, Ot Z87.891 PERSONAL HISTORY OF NICOTINE DEPENDENCE 08/18/2018 NASIMA HIDALGO MD Ot Z88.8 ALLERGY STATUS TO OTH DRUG/MEDS/BIOL SUB 08/18/2018 NASIMA HIDALGO MD Ot Z90.89 ACQUIRED ABSENCE OF OTHER ORGANS 08/18/2018 NASIMA HIDALGO MD Ot Z95.0 PRESENCE OF CARDIAC PACEMAKER 08/18/2018 NASIMA HIDALGO MD Ot Z95.5 PRESENCE OF CORONARY ANGIOPLASTY IMPLANT 08/18/2018 GUSTAFSON DO, ALIYAH L Ot G47.30 SLEEP APNEA, UNSPECIFIED 08/18/2018 GUSTAFSON DO, ALIYAH L Ot I20.9 ANGINA PECTORIS, UNSPECIFIED 08/18/2018 GUSTAFSON DO, ALIYAH L Ot I25.2 OLD MYOCARDIAL INFARCTION 08/18/2018 GUSTAFSON DO, ALIYAH L Ot I48.91 UNSPECIFIED ATRIAL FIBRILLATION 08/18/2018 GUSTAFSON DO, ALIYAH L Ot R00.2 PALPITATIONS 08/18/2018 GUSTAFSON DO, ALIYAH L Ot Z85.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 OF OTHER MALIGNANT NEOP 08/18/2018 GUSTAFSON DO, ALIYAH L Ot Z87.891 PERSONAL HISTORY OF NICOTINE DEPENDENCE 08/18/2018 GUSTAFSON DO, ALIYAH L Ot 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 ACQUIRED ABSENCE OF OTHER ORGANS 08/18/2018 GUSTAFSON DO, ALIYAH L Ot Z95.0 PRESENCE OF CARDIAC PACEMAKER 08/18/2018 GUSTAFSON DO, ALIYAH L Ot Z95.5 PRESENCE OF CORONARY ANGIOPLASTY IMPLANT 09/10/2018 NASIMA HIDALGO MD Ot G47.30 SLEEP APNEA, UNSPECIFIED 09/10/2018 NASIMA HIDALGO MD Ot I25.2 OLD MYOCARDIAL INFARCTION 09/10/2018 NASIMA HIDALGO MD Ot I48.91 UNSPECIFIED ATRIAL FIBRILLATION 09/10/2018 NASIMA HIDALGO MD Ot R40.2142 COMA SCALE, EYES OPEN, SPONTANEOUS, EMR 09/10/2018 NASIMA HIDALGO MD Ot R40.2252 COMA SCALE, BEST VERBAL RESPONSE, ORIENT 09/10/2018 NASIMA HIDALGO MD Ot R40.2362 COMA SCALE, BEST MOTOR RESPONSE, OBEYS C 09/10/2018 NASIMA HIDALGO MD Ot S01.81XA LACERATION W/O FOREIGN BODY OF OTH PART 09/10/2018 NASIMA HIDALGO MD, Ot W22.09XA STRIKING AGAINST OTHER STATIONARY OBJECT 09/10/2018 NASIMA HIDALGO MD Ot 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 Results Test Result Range Comprehensive metabolic panel - 07/16/18 22:33 Serum or plasma sodium measurement (moles/volume) 137 mmol/L 135-145 Serum or plasma potassium measurement (moles/volume) 3.8 mmol/L 3.6-5.0 Serum or plasma chloride measurement (moles/volume) 98 mmol/L 98-107 Carbon dioxide 27 mmol/L 21-32 Serum or plasma anion gap determination (moles/volume) 12 mmol/L 5-14 Serum or plasma urea nitrogen measurement (mass/volume) 15 mg/dL 7-18 Serum or plasma creatinine measurement (mass/volume) 0.95 mg/dL 0.60-1.30 Serum or plasma urea nitrogen/creatinine mass ratio 16 NRG Serum or plasma creatinine measurement with calculation of estimated glomerular filtration rate > NRG Serum or plasma glucose measurement (mass/volume) 117 mg/dL 70-105 Serum or plasma calcium measurement (mass/volume) 9.0 mg/dL 8.5-10.1 Serum or plasma total bilirubin measurement (mass/volume) 0.7 mg/dL 0.1-1.0 Serum or plasma alkaline phosphatase measurement (enzymatic activity/volume) 67 U/L 40-136 Serum or plasma aspartate aminotransferase measurement (enzymatic activity/volume) 28 U/L 5-34 Serum or plasma alanine aminotransferase measurement (enzymatic activity/volume) 26 U/L 0-55 Serum or plasma protein measurement (mass/volume) 6.9 g/dL 6.4-8.2 Serum or plasma albumin measurement (mass/volume) 4.2 g/dL 3.2-4.5 CALCIUM CORRECTED 8.8 mg/dL 8.5-10.1 Magnesium - 07/16/18 22:33 Magnesium 2.1 mg/dL 1.8-2.4 TROPONIN T - 07/16/18 22:33 TROPONIN T 11 % <=15 Complete blood count (CBC) with automated white blood cell (WBC) differential - 07/16/18 22:33 Blood leukocytes automated count (number/volume) 10.3 10*3/uL 4.3-11.0 Blood erythrocytes automated count (number/volume) 4.93 10*6/uL 4.35-5.85 Venous blood hemoglobin measurement (mass/volume) 16.1 g/dL 13.3-17.7 Blood hematocrit (volume fraction) 45 % 40-54 Automated erythrocyte mean corpuscular volume 92 [foz_us] 80-99 Automated erythrocyte mean corpuscular hemoglobin (mass per erythrocyte) 33 pg 25-34 Automated erythrocyte mean corpuscular hemoglobin concentration measurement (mass/volume) 36 g/dL 32-36 Automated erythrocyte distribution width ratio 12.4 % 10.0- 14.5 Automated blood platelet count (count/volume) 320 10*3/uL 130-400 Automated blood platelet mean volume measurement 9.1 [foz_us] 7.4-10.4 Automated blood neutrophils/100 leukocytes 58 % 42-75 Automated blood lymphocytes/100 leukocytes 28 % 12-44 Blood monocytes/100 leukocytes 11 % 0-12 Automated blood eosinophils/100 leukocytes 2 % 0-10 Automated blood basophils/100 leukocytes 1 % 0-10 Blood neutrophils automated count (number/volume) 5.9 10*3 1.8-7.8 Blood lymphocytes automated count (number/volume) 2.9 10*3 1.0-4.0 Blood monocytes automated count (number/volume) 1.1 10*3 0.0- 1.0 Automated eosinophil count 0.3 10*3/uL 0.0-0.3 Automated blood basophil count (count/volume) 0.1 10*3/uL 0.0-0.1 PT panel in platelet poor plasma by coagulation assay - 07/16/18 22:33 Prothrombin time (PT) in platelet poor plasma by coagulation assay 14.3 s 12.2-14.7 INR in platelet poor plasma or blood by coagulation assay 1.1 0.8-1.4 Activated partial thromboplastin time (aPTT) in platelet poor plasma bycoagulation assay - 07/16/18 22:33 Activated partial thromboplastin time (aPTT) in platelet poor plasma bycoagulation assay 29 s 24-35 Automated blood complete blood count (hemogram) panel - 08/13/18 10:05 Blood leukocytes automated count (number/volume) 8.5 10*3/uL 4.3-11.0 Blood erythrocytes automated count (number/volume) 4.80 10*6/uL 4.35-5.85 Venous blood hemoglobin measurement (mass/volume) 15.5 g/dL 13.3-17.7 Blood hematocrit (volume fraction) 45 % 40-54 Automated erythrocyte mean corpuscular volume 94 [foz_us] 80-99 Automated erythrocyte mean corpuscular hemoglobin (mass per erythrocyte) 32 pg 25-34 Automated erythrocyte mean corpuscular hemoglobin concentration measurement (mass/volume) 35 g/dL 32-36 Automated erythrocyte distribution width ratio 12.5 % 10.0- 14.5 Automated blood platelet count (count/volume) 293 10*3/uL 130-400 Automated blood platelet mean volume measurement 9.3 [foz_us] 7.4-10.4 PT panel in platelet poor plasma by coagulation assay - 08/13/18 10:05 Prothrombin time (PT) in platelet poor plasma by coagulation assay 13.8 s 12.2-14.7 INR in platelet poor plasma or blood by coagulation assay 1.1 0.8-1.4 Activated partial thromboplastin time (aPTT) in platelet poor plasma bycoagulation assay - 08/13/18 10:05 Activated partial thromboplastin time (aPTT) in platelet poor plasma bycoagulation assay 26 s 24-35 Encounters ACCT No. Visit Date/Time Discharge Status Pt. Type Provider Facility Loc./Unit Complaint [id number] 08/13/2018 09:54:00 08/13/2018 11:28:00 DIS Emergency NASIMA HIDALGO MD [facility] [place] [id number] 07/16/2018 22:31:00 07/17/2018 00:03:00 DIS Emergency ALIYAH GUSTAFSON DO [facility] FS [facility] RATE
[2018-11-07] MEDS ORDERED: ASPIRIN 81 MG CHEW (CHILDREN'S ASA) PO ONE (10:45)
[2018-11-07] MEDS: NITROGLYCERIN 0.4 MG SL TABS BTL 25'S SL PRN ×2 (10:48→10:55)
--- NOTE | 2018-11-07 10:49 | ED Chest Pain ---
General Chief Complaint: Cardiac/General Problems Stated Complaint: HEART PALPITATIONS; BP 170/110; DIZZINESS Nursing Triage Note: TO ER WITH COMPLAINTS OF WAKING UP AROUND 0900 FEELING DIZZY AND JUST NOT RIGHT. TOOK HIS BP AND HIS BP WAS HIGH. FORGOT TO TAKE MEDICATIONS LAST NIGHT INCLUDING BP MEDS SO HE TOOK THEM THIS AM. ALSO COMPLAINS OF CHEST PAIN BUT HAS A HX OF FIBROMYALGIA AND HURTING ACROSS CHEST. Nursing Sepsis Screen: No Definite Risk Source: patient, spouse Exam Limitations: no limitations History of Present Illness Date Seen by Provider: Nov 07, 2018 Time Seen by Provider: 10:26 Initial Comments The patient presents to ER with his significant other and chief complaint that he woke up this morning feeling a little dizzy/woozy like he was drunk and having some new chest pains in his left chest different from his typical, chronic substernal chest pain. The chest pains reproducible by direct palpation. He has a history of coronary disease with stents and a most recent catheterization in [address] Kebede at [facility]. He follows with Dr. BEDOLLA for primary care. His chronic chest pains have been extensively worked up in the past and he was diagnosed with most likely fibromyalgia and he has been on gabapentin. He also was started on Cymbalta 3 days ago by his sql analyst however he only took one dose and it made him experience multiple chest palpitations so he never took it again. He says the chest pain does not radiate anywhere isn't a different place but feels same as his other chest pain that is reproducible to palpation. He has no cough fevers chills nausea sweats. He is no longer a smoker nor is he a diabetic but he does have high cholesterol and takes a statin. He has trialed being off the statins to see if that helps his chest pains and it did not. He had an echocardiogram a few weeks ago. He was given a letter saying that he had some moderate mitral regurgitation and has close follow-up every 6 months with the sql analyst. He's had a workup looking for rheumatoid arthritis primary care. He takes sotalol 80 mg at night and last night he missed his dose so he took it this morning when he realizes blood pressure was high at 170/110. When he checked his blood pressure this morning he checked it serially multiple times every time it went up and his anxiety went up as well. No history of GERD or acid reflux. He also did not take his gabapentin last night or this morning and he usually takes 600 mg 3 times a day. He decided against taking the gabapentin because he was got takes Soma for some back pain related to his working around the house last couple days. He also has a history of atrial fibrillation on Eliquis. He was recently started on metoprolol to help with his heart palpitations in addition to his sotalol. He has a pacemaker. The patient also states he has very small epicardial coronaries and every time he did a stress test he ended up getting a heart catheter so Dr. Kebede has apparently been doing electrocardiography stress test. Allergies and Home Medications Allergies Coded Allergies: amiodarone (Verified Allergy, Unknown, 08/13/18) Patient Home Medication List Home Medication List Reviewed: Yes Review of Systems Review of Systems Constitutional: No chills, No fever EENTM: No Blurred Vision, No Double Vision Respiratory: Denies Cough, Denies Shortness of Air Cardiovascular: See HPI, Chest Pain; Denies Edema, Denies Irregular Heart Rate Gastrointestinal: Denies Constipated, Denies Diarrhea, Denies Nausea Genitourinary: Denies Burning, Denies Discharge Musculoskeletal: back pain; No joint pain Skin: No change in color, No pruritus, No rash Psychiatric/Neurological: Denies Headache, Denies Numbness, Denies Paresthesia Past Ytnzgii-Fqmusz-Aetizk Hx Patient Social History Alcohol Use: Occasionally Uses Alcohol Beverage of Choice: Beer Recreational Drug Use: No Smoking Status: Former Smoker Former Smoker, Quit: May 16, 1988 2nd Hand Smoke Exposure: No Recent Foreign Travel: No Contact w/Someone Who Travel: No Recent Infectious Disease Expo: No Recent Hopitalizations: No Immunizations Up To Date Tetanus Booster (TDap): Less than 5yrs Date of Influenza Vaccine: Feb 24, 2019 Seasonal Allergies Seasonal Allergies: No Past Medical History Surgeries: Yes (BILAT KNEE ARTHROSCOPY, ULNA NERVE SURGERY, CARPAL TUNNEL R, COLONOSCOPY ) Cardiac, Coronary Stent, Pacemaker, Tonsillectomy Respiratory: Yes Sleep Apnea Currently Using CPAP: No Currently Using BIPAP: No Cardiac: Yes Angina, Atrial Fibrillation, Heart Attack Neurological: No Sexually Transmitted Disease: No HIV/AIDS: No Genitourinary: No Gastrointestinal: No Musculoskeletal: No Endocrine: No HEENT: No Hearing Impairment: Denies Cancer: Yes Skin Did You Recieve Any Treatments: Yes What Type of Treatment Did You: Surgical Intervention Psychosocial: No Integumentary: No Blood Disorders: No Physical Exam Vital Signs Vital Signs - First Documented 11/07/18 10:13 Temp 98.0 Pulse 78 Resp 16 B/P (MAP) 179/108 (131) Pulse Ox 100 O2 Delivery Room Air Capillary Refill : Less Than 3 Seconds Height, Weight, BMI Height: 5'8.00" Weight: 175lbs. oz. 79.529036af; BMI Method:Estimated General Appearance: WD/WN, Anxious HEENT: PERRL/EOMI, Pharynx Normal, Moist Mucous Membranes Neck: Full Range of Motion, Normal Inspection, Non Tender, Supple Respiratory: No Chest Non Tender; Lungs Clear, Normal Breath Sounds, No Accessory Muscle Use, No Respiratory Distress, Other (chest pain reproduced by direct palpation over the sternum) Cardiovascular: Regular Rate, Rhythm, No Edema, Normal Peripheral Pulses Gastrointestinal: Normal Bowel Sounds, Non Tender, Soft Extremity: Normal Capillary Refill, No Pedal Edema Neurologic/Psychiatric: Alert, Oriented x3, No Motor/Sensory Deficits, Normal 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/Affect, 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 Norm as Tested Skin: Normal Color, Warm/Dry Procedures/Interventions Suture Size: 6-0 Progress/Results/Core Measures Results/Orders Lab Results Laboratory Tests Test 11/07/18 10:24 11/07/18 12:13 Range/Units White Blood Count 6.9 4.3-11.0 10^3/uL Red Blood Count 5.41 4.35-5.85 10^6/uL Hemoglobin 17.4 13.3-17.7 G/DL Hematocrit 50 40-54 % Mean Corpuscular Volume 92 80-99 FL Mean Corpuscular Hemoglobin 32 25-34 PG Mean Corpuscular Hemoglobin Concent 35 32-36 G/DL Red Cell Distribution Width 12.7 10.0-14.5 % Platelet Count 251 130-400 10^3/uL Mean Platelet Volume 9.4 7.4-10.4 FL Neutrophils (%) (Auto) 64 42-75 % Lymphocytes (%) (Auto) 24 12-44 % Monocytes (%) (Auto) 9 0-12 % Eosinophils (%) (Auto) 2 0-10 % Basophils (%) (Auto) 1 0-10 % Neutrophils # (Auto) 4.4 1.8-7.8 X 10^3 Lymphocytes # (Auto) 1.7 1.0-4.0 X 10^3 Monocytes # (Auto) 0.6 0.0-1.0 X 10^3 Eosinophils # (Auto) 0.2 0.0-0.3 10^3/uL Basophils # (Auto) 0.0 0.0-0.1 10^3/uL Prothrombin Time 14.0 12.2-14.7 SEC INR Comment 1.0 0.8-1.4 Activated Partial Thromboplast Time 27 24-35 SEC Sodium Level 139 135-145 MMOL/L Potassium Level 4.4 3.6-5.0 MMOL/L Chloride Level 102 98-107 MMOL/L Carbon Dioxide Level 23 21-32 MMOL/L Anion Gap 14 5-14 MMOL/L Blood Urea Nitrogen 16 7-18 MG/DL Creatinine 0.90 0.60-1.30 MG/DL Estimat Glomerular Filtration Rate > 60 BUN/Creatinine Ratio 18 Glucose Level 104 70-105 MG/DL Calcium Level 9.3 8.5-10.1 MG/DL Corrected Calcium 9.1 8.5-10.1 MG/DL Magnesium Level 2.1 1.8-2.4 MG/DL Total Bilirubin 0.9 0.1-1.0 MG/DL Aspartate Amino Transf (AST/SGOT) 28 5-34 U/L Alanine Aminotransferase (ALT/SGPT) 29 0-55 U/L Alkaline Phosphatase 67 40-136 U/L Myoglobin 30.5 10.0-92.0 NG/ML Troponin T 9 8 <=15 NG/L Pro-B-Type Natriuretic Peptide 161.5 H <75.0 PG/ML Total Protein 7.1 6.4-8.2 GM/DL Albumin 4.3 3.2-4.5 GM/DL My Orders Orders - JENNI AVALOS Cbc With Automated Diff (11/07/18 10:42) Magnesium (11/07/18 10:42) Chest 1 View Ap/Pa Only (11/07/18 10:42) Ekg Tracing (11/07/18 10:42) Comprehensive Metabolic Panel (11/07/18 10:42) Myoglobin Serum (11/07/18 10:42) Protime With Inr (11/07/18 10:42) Partial Thromboplastin Time (11/07/18 10:42) O2 (11/07/18 10:42) Monitor-Rhythm Ecg Trace Only (11/07/18 10:42) Lipid Panel (11/08/18 06:00) Aspirin Chewable Tablet (Baby Aspirin Ch (11/07/18 10:45) Nitroglycerin 0.4 Mg Btl 25's (Nitrostat (11/07/18 10:45) Ed Iv/Invasive Line Start (11/07/18 10:42) Troponin T (11/07/18 10:42) Probnp Fs (11/07/18 10:42) Morphine Injection (Morphine Injection (11/07/18 11:03) Ondansetron Injection (Zofran Injectio (11/07/18 11:15) Ondansetron Injection (Zofran Injectio (11/07/18 11:09) Troponin T (11/07/18 12:20) Medications Given in ED Current Medications Medications Dose Ordered Sig/Sujatha Route Start Time Stop Time Status Last Admin Dose Admin Aspirin 324 mg ONCE ONCE PO 11/07/18 10:45 11/07/18 10:46 DC 11/07/18 10:48 324 MG Nitroglycerin 0.4 mg UD PRN SL 11/07/18 10:45 11/07/18 10:55 0.4 MG Ondansetron HCl 8 mg ONCE ONCE IVP 11/07/18 11:15 11/07/18 11:16 DC 11/07/18 11:15 8 MG Vital Signs/I&O 11/07/18 10:13 Temp 98.0 Pulse 78 Resp 16 B/P (MAP) 179/108 (131) Pulse Ox 100 O2 Delivery Room Air Blood Pressure Mean: 131 Progress Progress Note : Time: 10:49 Progress Note We will do a cardiac workup and give him aspirin and nitroglycerin. According to his his blood pressure usually runs very controlled and last week at the doctor's office it was 130s systolic. There may be a component of anxiety and is fibromyalgia feeding into his elevated blood pressure which is causing his dizziness. He has no neurologic symptoms or deficits per history or clinical exam. This seems like an exacerbation of chronic issues. We have made sug gestions including continuing his gabapentin and if he wants to get off that he should wean off not stopping cold turkey as well as following up with shipyard painter apprentice. He has his own gabapentin with him so we have asked him to take this morning's dose. He says he took everything else including the sotalol from last night already this morning. He didn't want to mix the jean carlos apentin and Soma as it might cause him to be drowsy. We have encouraged him to seek other medications and might help control his chronic chest pain symptoms such as duloxetine etc. If we cannot control his symptoms with nitroglycerin or blood pressure control then we may trial morphine for its analgesia and anxiolysis properties. ED ACS 12 points. Low risk by the EDACS Score. If the patient also has: (1) EKG without new ischemic changes and (2) negative initial and 2-hour troponins, then this patient is safe for discharge to early outpatient follow-up investigation (or proceed to earlier inpatient testing). If EKG with ischemic changes or positive troponin, they are not low risk and require normal risk stratification. 1105: After 2 doses of nitroglycerin the patient said his chest pain was not improved but his blood pressure has gone down to 120/65. We will try to 4 mg morphine for its anxiolysis and pain management properties. Initial ECG Impression Date: Nov 07, 2018 Initial ECG Impression Time: 10:18 Initial ECG Rate: 76 Initial ECG Rhythm: Normal Sinus Initial ECG Intervals: Normal Initial ECG Impression: Normal, Nonspecific Changes Initial ECG Comparisson: Unchanged Comment Atrial paced rhythm without significant ST elevation or depression. Diagnostic Imaging Diagonstic Imaging: Xray Plain Films/CT/US/NM/MRI: chest (1v) Comments No acute cardiopulmonary processes. [facility] [place] NAME: [facility] REC#: [id number] PT STATUS: REG ER : 1950 PHYSICIAN: JENNI AVALOS MD ADMIT DATE: 11/07/18/ER FS Draft Date of Exam:11/07/18 CHEST 1 VIEW AP/PA ONLY INDICATION: Chest pain. FINDINGS: Pacemaker battery overlies the left chest. The lungs are clear. The heart and vessels are normal. There is no effusion or pneumothorax. IMPRESSION: No acute appearing abnormality. Dictated on workstation # [id number] Dict: 11/07/18 1100 Trans: 11/07/18 1108 [facility] [id number] Interpreted by: KATH GAINES Electronically signed by: Reviewed: Reviewed by Me Departure Impression Primary Impression: Chest wall pain Disposition: 01 HOME, SELF-CARE Condition: Stable Departure-Patient Inst. Decision time for Depature: 12:41 Referrals: SHEEBA BEDOLLA DO (PCP/Family) Primary Care Physician Patient Instructions: Costochondritis, Chest Pain That Is Not Caused by the Heart (DC) Add. Discharge Instructions: Use Tylenol 1000 mg every 8 hours as necessary for pain. Use the prednisone one tablet twice a day for the next 5 days to bring down the inflammation in your chest wall. Follow-up with your primary care doctor discussed pain management specialties or other strategies for managing your chest wall pain. Follow-up with your sql analyst by getting their office a call tomorrow. Topical creams such as muscle rubs, icy hot etc. All discharge instructions reviewed with patient and/or family. Voiced understanding. Scripts Prednisone (Prednisone) 20 Mg Tab 20 MG PO BID for 5 Days, #10 TAB 0 Refills Prov: JENNI AVALOS 11/07/18 JENNI AVALOS Nov 07, 2018 10:49
[2018-11-07 10:52] LABS: HEMATOCRIT 50 % (40-54); HEMOGLOBIN 17.4 G/DL (13.3-17.7); MEAN CORPUSCULAR HEMOGLOBIN 32 PG (25-34); MEAN CORPUSCULAR HGB CONC 35 G/DL (32-36); MEAN CORPUSCULAR VOLUME 92 FL (80-99); PLATELET COUNT 251 10^3/uL (130-400); RED CELL DISTRIBUTION WIDTH 12.7 % (10.0-14.5); WHITE BLOOD COUNT 6.9 10^3/uL (4.3-11.0)
[2018-11-07 10:53] LABS: BASOPHILS % (AUTO) 1 % (0-10); EOSINOPHILS # (AUTO) 0.2 10^3/uL (0.0-0.3); EOSINOPHILS % (AUTO) 2 % (0-10); LYMPHOCYTES # (AUTO) 1.7 X 10^3 (1.0-4.0); LYMPHOCYTES % (AUTO) 24 % (12-44); MEAN PLATELET VOLUME 9.4 FL (7.4-10.4); MONOCYTES # (AUTO) 0.6 X 10^3 (0.0-1.0); MONOCYTES % (AUTO) 9 % (0-12); NEUTROPHILS # (AUTO) 4.4 X 10^3 (1.8-7.8); NEUTROPHILS % (AUTO) 64 % (42-75)
--- NOTE | 2018-11-07 11:02 | NUR ---
PT CONTINUES TO COMPLAIN OF PAIN AFTER TWO NITRO. BP HAS CAME DOWN ET DR NOTIFIED.
[2018-11-07] MEDS ORDERED: morphine INJ 10 MG/ML 1ML (SYR OR VIAL) IVP STA (11:03)
[2018-11-07 11:05] LABS: BUN/CREATININE RATIO 18; CARBON DIOXIDE 23 MMOL/L (21-32); CHLORIDE 102 MMOL/L (98-107); GFR ESTIMATED > 60; GLUCOSE 104 MG/DL (70-105); POTASSIUM 4.4 MMOL/L (3.6-5.0); SODIUM 139 MMOL/L (135-145)
[2018-11-07 11:06] LABS: ALANINE AMINOTRANSFERASE 29 U/L (0-55); ALKALINE PHOSPHATASE 67 U/L (40-136); BILIRUBIN,TOTAL 0.9 MG/DL (0.1-1.0); CALCIUM 9.3 MG/DL (8.5-10.1); MAGNESIUM 2.1 MG/DL (1.8-2.4); TOTAL PROTEIN 7.1 GM/DL (6.4-8.2)
[2018-11-07 11:07] LABS: ALBUMIN 4.3 GM/DL (3.2-4.5)
[2018-11-07] MEDS ORDERED: ONDANSETRON 4 MG/2 ML (SDV) Z0FRAN ONE (11:09)
--- NOTE | 2018-11-07 11:09 | Diagnostic Imaging Report ---
INDICATION: Chest pain. FINDINGS: Pacemaker battery overlies the left chest. The lungs are clear. The heart and vessels are normal. There is no effusion or pneumothorax. IMPRESSION: No acute appearing abnormality. Dictated by: Dictated on workstation # [id number]
[2018-11-07] MEDS ORDERED: ONDANSETRON 4 MG/2 ML (SDV) Z0FRAN IVP ONE (11:15)
--- NOTE | 2018-11-07 11:26 | NUR ---
IN ROOM WITH PT.
[2018-11-07] MEDS ORDERED: PRD20T PO (12:43)
--- NOTE | 2018-11-07 12:46 | NUR ---
DR IN ROOM WITH PT AT THIS TIME.
--- NOTE | 2018-11-07 12:54 | NUR ---
CONTINUES TO TALK TO PT.
[2018-11-07 13:05] VITALS: BP 163/85
== END 2018-11-07 13:05 | disposition home or self-care (01) ==
LOC: EDUNIT# 10:12 → ER FS 10:13
DX: R07.89 Other chest pain (principal); M79.7 Fibromyalgia; I25.10 Atherosclerotic heart disease of native coronary artery without angina pectoris; E78.00 Pure hypercholesterolemia, unspecified; M06.9 Rheumatoid arthritis, unspecified; F41.9 Anxiety disorder, unspecified; I48.91 Unspecified atrial fibrillation; G47.30 Sleep apnea, unspecified; I25.2 Old myocardial infarction; Z85.828 Personal history of other malignant neoplasm of skin; Z79.01 Long term (current) use of anticoagulants; Z95.5 Presence of coronary angioplasty implant and graft; Z91.14 Patient's other noncompliance with medication regimen; Z95.0 Presence of cardiac pacemaker; Z88.8 Allergy status to other drugs, medicaments and biological substances; Z87.891 Personal history of nicotine dependence; Z90.89 Acquired absence of other organs
CPT/HCPCS: 36415; 71045; 80053; 83735; 83874; 83880; 84484; 85025; 85610; 85730; 93041; 96374; 96375

== ENCOUNTER 2019-04-09 20:24 | Emergency (ER) | payer MEDICARE ==
[~2019-04-09] VITALS: Ht 175 cm; Wt 81.0 kg
[~2019-04-09 20:24] MED LIST changes: +PRD20T PO
--- NOTE | 2019-04-09 20:38 | ED Cardiac General ---
History of Present Illness General Stated Complaint: LOW HEART RATE Source: patient, family Exam Limitations: no limitations History of Present Illness Date Seen by Provider: Apr 09, 2019 Time Seen by Provider: 20:35 Initial Comments 68-year-old male presents because he has some generalized malaise. Patient reports that his heart rate was low and has a pacemaker. They went to [facility] to check his blood pressure and it read out in the 40s. Reports his pacemaker is set to keep his heart rate in the 70s. He did contact the sales manager prearranged funerals and was sent in to have a his pacemaker evaluated today but has not heard the results. He does not have any chest pain, no nausea, vomiting. He does report that he is tapering off of steroids due to him sinus issues or some generalized body aches and pains. He is unsure exactly why. Patient does not report any cough, fevers, chills. Allergies and Home Medications Allergies Coded Allergies: amiodarone (Verified Allergy, Unknown, 08/13/18) Home Medications Prednisone 20 Mg Tab, 20 MG PO BID Prescribed by: JENNI AVALOS on 11/07/18 1243 Patient Home Medication List Home Medication List Reviewed: Yes Review of Systems Review of Systems Constitutional: No chills, No dizziness, No fever; malaise Respiratory: Denies Cough, Denies Shortness of Air Cardiovascular: Denies Chest Pain; Irregular Heart Rate Gastrointestinal: Denies Abdominal Pain, Denies Nausea, Denies Vomiting Musculoskeletal: no symptoms reported Skin: no symptoms reported Past Avsoqxa-Cxfpgi-Ywwapb Hx Past Med/Social Hx: Reviewed Nursing Past Med/Soc Hx Patient Social History Alcohol Beverage of Choice: Beer Former Smoker, Quit: May 16, 1988 2nd Hand Smoke Exposure: No Recent Foreign Travel: No Contact w/Someone Who Travel: No Recent Hopitalizations: No Immunizations Up To Date Tetanus Booster (TDap): Less than 5yrs Date of Influenza Vaccine: Feb 24, 2019 Seasonal Allergies Seasonal Allergies: No Past Medical History Surgeries: Yes (BILAT KNEE ARTHROSCOPY, ULNA NERVE SURGERY, CARPAL TUNNEL R, COLONOSCOPY ) Cardiac, Coronary Stent, Pacemaker, Tonsillectomy Respiratory: Yes Sleep Apnea Currently Using CPAP: No Currently Using BIPAP: No Cardiac: Yes Angina, Atrial Fibrillation, Heart Attack Neurological: No Sexually Transmitted Disease: No HIV/AIDS: No Genitourinary: No Gastrointestinal: No Musculoskeletal: No Endocrine: No HEENT: No Hearing Impairment: Denies Cancer: Yes Skin Did You Recieve Any Treatments: Yes What Type of Treatment Did You: Surgical Intervention Psychosocial: No Integumentary: No Blood Disorders: No Physical Exam Vital Signs Vital Signs - First Documented 04/09/19 20:27 Temp 37.0 Pulse 87 Resp 18 B/P (MAP) 143/76 (98) Pulse Ox 96 O2 Delivery Room Air Capillary Refill : Height, Weight, BMI Height: 5'8.00" Weight: 175lbs. oz. 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4 FL Sodium Level 136 135-145 MMOL/L Potassium Level 4.1 3.6-5.0 MMOL/L Chloride Level 101 98-107 MMOL/L Carbon Dioxide Level 24 21-32 MMOL/L Anion Gap 11 5-14 MMOL/L Blood Urea Nitrogen 20 H 7-18 MG/DL Creatinine 1.12 0.60-1.30 MG/DL Estimat Glomerular Filtration Rate > 60 BUN/Creatinine Ratio 18 Glucose Level 108 H 70-105 MG/DL Calcium Level 8.8 8.5-10.1 MG/DL Corrected Calcium 8.8 8.5-10.1 MG/DL Magnesium Level 2.2 1.6-2.4 MG/DL Total Bilirubin 0.8 0.1-1.0 MG/DL Aspartate Amino Transf (AST/SGOT) 20 5-34 U/L Alanine Aminotransferase (ALT/SGPT) 25 0-55 U/L Alkaline Phosphatase 57 40-136 U/L Total Protein 6.5 6.4-8.2 GM/DL Albumin 4.0 3.2-4.5 GM/DL My Orders Orders - ALIYAH GUSTAFSON DO Chest 1 View Ap/Pa Only (04/09/19 20:38) Ekg Tracing (04/09/19 20:38) Monitor-Rhythm Ecg Trace Only (04/09/19 20:38) Cbc No Diff (04/09/19 20:38) Comprehensive Metabolic Panel (04/09/19 20:38) Magnesium (04/09/19 20:38) Ua Culture If Indicated (04/09/19 20:38) Ed Iv/Invasive Line Start (04/09/19 20:46) Lidocaine 2% Viscous 15 Ml (Xylocaine Vi (04/09/19 21:30) Antacid Suspension (Mylanta Suspension (04/09/19 21:30) Vital Signs/I&O 04/09/19 20:27 Temp 37.0 Pulse 87 Resp 18 B/P (MAP) 143/76 (98) Pulse Ox 96 O2 Delivery Room Air Initial ECG Impression Date: Apr 09, 2019 Initial ECG Impression Time: 20:29 Initial ECG Rate: 85 Comment atrial paced Diagnostic Imaging Diagonstic Imaging: Xray Plain Films/CT/US/NM/MRI: chest Reviewed: Reviewed/Discussed Departure Impression Primary Impression: Paced cardiac rhythm Additional Impression: Epigastric discomfort Disposition: 01 HOME, SELF-CARE Condition: Stable Departure-Patient Inst. Referrals: SHEEBA BEDOLLA DO (PCP/Family) Primary Care Physician Add. Discharge Instructions: Follow-up with your sales manager prearranged funerals for continued pacer evaluation. Return to the ER as needed ALIYAH GUSTAFSON DO Apr 09, 2019 20:38 POS
[2019-04-09 20:47] LABS: HEMOGLOBIN 15.6 G/DL (13.3-17.7); MEAN PLATELET VOLUME 9.3 FL (7.4-10.4); RED CELL DISTRIBUTION WIDTH 13.2 % (10.0-14.5)
--- NOTE | 2019-04-09 21:03 | Diagnostic Imaging Report ---
EXAMINATION: Chest radiograph, portable AP view. DATE: 04/09/2019 8:53 PM hours. INDICATION: 68-year-old male, chest pain. COMPARISON: November 07, 2018. FINDINGS: There is a left-sided cardiac assist device with leads. The leads appear intact. A stable overall appearance of the cardiomediastinal silhouette. There is no identified pneumothorax. There is no large pleural effusion. There is no identified focal airspace consolidation. IMPRESSION: No identified acute cardiopulmonary abnormality. Dictated by: Dictated on workstation # [id number]
[2019-04-09 21:05] LABS: ALANINE AMINOTRANSFERASE 25 U/L (0-55); ALKALINE PHOSPHATASE 57 U/L (40-136); BILIRUBIN,TOTAL 0.8 MG/DL (0.1-1.0); BUN/CREATININE RATIO 18; CALCIUM 8.8 MG/DL (8.5-10.1); CARBON DIOXIDE 24 MMOL/L (21-32); CHLORIDE 101 MMOL/L (98-107); CREATININE SERUM 1.12 MG/DL (0.60-1.30); GFR ESTIMATED > 60; GLUCOSE 108 MG/DL (70-105); MAGNESIUM 2.2 MG/DL (1.6-2.4); POTASSIUM 4.1 MMOL/L (3.6-5.0); SODIUM 136 MMOL/L (135-145); TOTAL PROTEIN 6.5 GM/DL (6.4-8.2)
[2019-04-09] MEDS ORDERED: LIDOCAINE 2% VISCOUS 15 ML UDC PO ONE (21:30)
[2019-04-09] MEDS ORDERED: ANTACID SUSP 30 ML UDC (MYLANTA) PO ONE (21:30)
[2019-04-09 21:43] VITALS: BP 126/60
== END 2019-04-09 21:43 | disposition home or self-care (01) ==
LOC: EDUNIT# 20:24 → ER FS 20:25
DX: I49.8 Other specified cardiac arrhythmias (principal); R10.13 Epigastric pain; I48.91 Unspecified atrial fibrillation; I25.2 Old myocardial infarction; Z85.828 Personal history of other malignant neoplasm of skin; Z95.0 Presence of cardiac pacemaker; Z88.8 Allergy status to other drugs, medicaments and biological substances; Z79.52 Long term (current) use of systemic steroids; Z87.891 Personal history of nicotine dependence; Z95.5 Presence of coronary angioplasty implant and graft; Z90.89 Acquired absence of other organs
CPT/HCPCS: 36415; 71045; 80053; 83735; 85027; 93005; 93041

== ENCOUNTER 2019-04-20 21:32 | Emergency (ER) | payer MEDICARE ==
[~2019-04-20] VITALS: Ht 175.2 cm; Wt 85.7 kg
--- NOTE | 2019-04-20 21:40 | ED Cardiac General ---
History of Present Illness General Stated Complaint: STATES A-FIB Source: patient Exam Limitations: no limitations History of Present Illness Date Seen by Provider: Apr 20, 2019 Time Seen by Provider: 21:37 Initial Comments Patient complains palpitations and rapid heart rate for the past few hours. He has a history of atrial fibrillation. He has a pacemaker. He denies chest pain. He is a little short of air. He also feels weak. Allergies and Home Medications Allergies Coded Allergies: amiodarone (Verified Allergy, Unknown, 08/13/18) Home Medications Prednisone 20 Mg Tab, 20 MG PO BID Prescribed by: JENNI AVALOS on 11/07/18 2543 Patient Home Medication List Home Medication List Reviewed: Yes Review of Systems Review of Systems Constitutional: malaise, weakness EENTM: No Symptoms Reported Respiratory: Shortness of Air Cardiovascular: Denies Chest Pain; Irregular Heart Rate, Palpitations Gastrointestinal: No Symptoms Reported Genitourinary: No Symptoms Reported Musculoskeletal: no symptoms reported Skin: no symptoms reported All Other Systems Reviewed Negative Unless Noted: Yes Past Vdpxgxd-Izuouu-Ersozs Hx Patient Social History Alcohol Beverage of Choice: Beer Former Smoker, Quit: May 16, 1988 2nd Hand Smoke Exposure: No Recent Foreign Travel: No Contact w/Someone Who Travel: No Recent Hopitalizations: No Immunizations Up To Date Tetanus Booster (TDap): Less than 5yrs Date of Influenza Vaccine: Feb 24, 2019 Seasonal Allergies Seasonal Allergies: No Past Medical History Surgeries: Yes (BILAT KNEE ARTHROSCOPY, ULNA NERVE SURGERY, CARPAL TUNNEL R, COLONOSCOPY ) Cardiac, Coronary Stent, Pacemaker, Tonsillectomy Respiratory: Yes Sleep Apnea Currently Using CPAP: No Currently Using BIPAP: No Cardiac: Yes Angina, Atrial Fibrillation, Heart Attack, High Cholesterol, Hypertension Neurological: No Sexually Transmitted Disease: No HIV/AIDS: No Genitourinary: No Gastrointestinal: No Musculoskeletal: No Endocrine: No HEENT: No Hearing Impairment: Denies Cancer: Yes Skin Did You Recieve Any Treatments: Yes What Type of Treatment Did You: Surgical Intervention Psychosocial: No Integumentary: No Blood Disorders: No Physical Exam Vital Signs Vital Signs - First Documented 04/20/19 21:33 Temp 36.2 Pulse 142 Resp 12 B/P (MAP) 117/87 (97) Pulse Ox 97 O2 Delivery Room Air Capillary Refill : Height, Weight, BMI Height: 5'8.00" Weight: 175lbs. oz. 79.497205to; 26.00 BMI Method:Estimated General Appearance: No Apparent Distress, WD/WN, Anxious HEENT: PERRL/EOMI, Pharynx Normal Neck: Supple Respiratory: Lungs Clear, Normal Breath Sounds Cardiovascular: No Murmur, Irregularly Irregular Gastrointestinal: Soft Extremity: Normal Inspection, Normal Range of Motion Neurologic/Psychiatric: Alert, No Motor/Sensory Deficits, Normal Mood/Affect Skin: Normal Color, Warm/Dry Procedures/Interventions Suture Size: 6-0 Progress/Results/Core Measures Results/Orders Lab Results Laboratory Tests Test 04/20/19 21:40 Range/Units White Blood Count 8.8 4.3-11.0 10^3/uL Red Blood Count 4.90 4.35-5.85 10^6/uL Hemoglobin 16.0 13.3-17.7 G/DL Hematocrit 45 40-54 % Mean Corpuscular Volume 92 80-99 FL Mean Corpuscular Hemoglobin 33 25-34 PG Mean Corpuscular Hemoglobin Concent 35 32-36 G/DL Red Cell Distribution Width 13.2 10.0-14.5 % Platelet Count 248 130-400 10^3/uL Mean Platelet Volume 9.0 7.4-10.4 FL Neutrophils (%) (Auto) 60 42-75 % Lymphocytes (%) (Auto) 29 12-44 % Monocytes (%) (Auto) 8 0-12 % Eosinophils (%) (Auto) 3 0-10 % Basophils (%) (Auto) 1 0-10 % Neutrophils # (Auto) 5.3 1.8-7.8 X 10^3 Lymphocytes # (Auto) 2.6 1.0-4.0 X 10^3 Monocytes # (Auto) 0.7 0.0-1.0 X 10^3 Eosinophils # (Auto) 0.2 0.0-0.3 10^3/uL Basophils # (Auto) 0.0 0.0-0.1 10^3/uL Prothrombin Time 12.7 12.2-14.7 SEC INR Comment 0.9 0.8-1.4 Activated Partial Thromboplast Time 26 24-35 SEC Sodium Level 140 135-145 MMOL/L Potassium Level 3.4 L 3.6-5.0 MMOL/L Chloride Level 102 98-107 MMOL/L Carbon Dioxide Level 23 21-32 MMOL/L Anion Gap 15 H 5-14 MMOL/L Blood Urea Nitrogen 17 7-18 MG/DL Creatinine 0.94 0.60-1.30 MG/DL Estimat Glomerular Filtration Rate > 60 BUN/Creatinine Ratio 18 Glucose Level 133 H 70-105 MG/DL Calcium Level 9.2 8.5-10.1 MG/DL Corrected Calcium 9.0 8.5-10.1 MG/DL Magnesium Level 2.3 1.6-2.4 MG/DL Total Bilirubin 1.0 0.1-1.0 MG/DL Aspartate Amino Transf (AST/SGOT) 25 5-34 U/L Alanine Aminotransferase (ALT/SGPT) 27 0-55 U/L Alkaline Phosphatase 70 40-136 U/L Troponin I < 0.30 <0.30 NG/ML Total Protein 7.1 6.4-8.2 GM/DL Albumin 4.3 3.2-4.5 GM/DL My Orders Orders - MIGUEL NIETO MD Chest 1 View Ap/Pa Only (04/20/19 21:33) Ekg Tracing (04/20/19 21:33) Cbc With Automated Diff (04/20/19 21:33) Magnesium (04/20/19 21:33) Comprehensive Metabolic Panel (04/20/19 21:33) Protime With Inr (04/20/19 21:33) Partial Thromboplastin Time (04/20/19 21:33) O2 (04/20/19 21:33) Monitor-Rhythm Ecg Trace Only (04/20/19 21:33) Ed Iv/Invasive Line Start (04/20/19 21:33) Troponin I Fs (04/20/19 21:33) Diltiazem Injection (Cardizem Injection) (04/20/19 21:45) Ns (Ivpb) (Sodium C... W/Diltiazem Iv Fo (04/20/19 21:45) Amiodarone For Bolus (Cordarone Bolus) (04/21/19 00:15) Ns (Ivpb) (Sodium C... W/Diltiazem Iv Fo (04/21/19 01:15) Medications Given in ED Current Medications Medications Dose Ordered Sig/Sujatha Route Start Time Stop Time Status Last Admin Dose Admin Amiodarone HCl 150 mg/Dextrose 103 ml @ 500 mls/hr ONCE ONCE IV 04/21/19 00:15 04/21/19 00:27 DC 04/21/19 00:28 500 MLS/HR Diltiazem HCl 15 mg ONCE ONCE IVP 04/20/19 21:45 04/20/19 21:46 DC 04/20/19 22:06 15 MG Vital Signs/I&O 04/20/19 04/20/19 04/21/19 21:33 22:10 01:08 Temp 36.2 Pulse 142 96 92 Resp 12 12 18 B/P (MAP) 117/87 (97) 120/96 106/63 Pulse Ox 97 94 97 O2 Delivery Room Air Room Air Room Air Progress Progress Note : Time: 22:31 Progress Note Patient remains in atrial fibrillation although at a controlled rate of 79 bpm. I spoke with him about transfer to cardiology care. He wants to wait here to see if the diltiazem will converted back to sinus rhythm. I expressed my doubts about what happened but he still wants to wait before transfer. Initial ECG Impression Date: Apr 20, 2019 Initial ECG Impression Time: 21:41 Initial ECG Rate: 145 Initial ECG Rhythm: A Fib/Flutter Initial ECG Impression: Nonspecific Changes Departure Communication (Admissions) Patient resting comfortably vital signs are stable. He did not convert with IV amiodarone. His heart rate has come back up to > 100. Diltiazem drip were started. He will need transfer to higher level of care (cardiology). I spoke with Dr. Allen via the [facility] transfer line. Stable for transfer. Impression Primary Impression: Atrial fibrillation Disposition: XF S[facility]-TRM HOSP Condition: Stable Transfer Transfer Reason: Exceeds level of care Time Spoke to Accepting Phy: 01:07 Transfer Time: 01:13 Transfer Facility: [facility] Departure-Patient Inst. Referrals: SHEEBA BEDOLLA DO (PCP/Family) Primary Care Physician Patient Instructions: Atrial Fibrillation (DC) Add. Discharge Instructions: Continue regular medicines MIGUEL NIETO MD Apr 20, 2019 21:40 POS
[2019-04-20] MEDS ORDERED: DILTIAZEM IV FOR DRIP 125 MG in NS (IVPB) 100 ML IV SCH (21:45)
[2019-04-20] MEDS ORDERED: DILTIAZEM 25 MG/5 ML INJ (CARDIZEM) VIAL IVP ONE (21:45)
[2019-04-20 22:00] LABS: MEAN CORPUSCULAR HEMOGLOBIN 33 PG (25-34); WHITE BLOOD COUNT 8.8 10^3/uL (4.3-11.0)
--- NOTE | 2019-04-20 22:00 | Diagnostic Imaging Report ---
CHEST 1 VIEW AP/PA ONLY Indication: Atrial fibrillation Comparison: 04/09/2019 Findings: No focal airspace disease in the visualized lungs. Please note that the posterior lower lobes are poorly evaluated by portable radiography. No pleural effusion or pneumothorax. Stable left pectoral transvenous pacemaker. Normal heart size. Impression: 1. No acute cardiopulmonary process by portable radiography. Dictated by: Dictated on workstation # [id number]
[2019-04-20 22:01] LABS: BASOPHILS % (AUTO) 1 % (0-10); EOSINOPHILS # (AUTO) 0.2 10^3/uL (0.0-0.3); EOSINOPHILS % (AUTO) 3 % (0-10); HEMATOCRIT 45 % (40-54); LYMPHOCYTES # (AUTO) 2.6 X 10^3 (1.0-4.0); LYMPHOCYTES % (AUTO) 29 % (12-44); MEAN CORPUSCULAR HGB CONC 35 G/DL (32-36); MEAN CORPUSCULAR VOLUME 92 FL (80-99); MONOCYTES # (AUTO) 0.7 X 10^3 (0.0-1.0); MONOCYTES % (AUTO) 8 % (0-12); NEUTROPHILS # (AUTO) 5.3 X 10^3 (1.8-7.8); NEUTROPHILS % (AUTO) 60 % (42-75); PLATELET COUNT 248 10^3/uL (130-400); RED CELL DISTRIBUTION WIDTH 13.2 % (10.0-14.5)
[2019-04-20 22:13] LABS: INR 0.9 (0.8-1.4); PROTHROMBIN TIME PATIENT 12.7 SEC (12.2-14.7)
[2019-04-20 22:20] LABS: CARBON DIOXIDE 23 MMOL/L (21-32); CHLORIDE 102 MMOL/L (98-107); POTASSIUM 3.4 MMOL/L (3.6-5.0); SODIUM 140 MMOL/L (135-145)
[2019-04-20 22:21] LABS: ALANINE AMINOTRANSFERASE 27 U/L (0-55); ALBUMIN 4.3 GM/DL (3.2-4.5); ALKALINE PHOSPHATASE 70 U/L (40-136); BUN/CREATININE RATIO 18; CALCIUM 9.2 MG/DL (8.5-10.1); CREATININE SERUM 0.94 MG/DL (0.60-1.30); GFR ESTIMATED > 60; GLUCOSE 133 MG/DL (70-105); MAGNESIUM 2.3 MG/DL (1.6-2.4); TOTAL PROTEIN 7.1 GM/DL (6.4-8.2)
--- NOTE | 2019-04-21 00:13 | NUR ---
Patient states that he is allergic to the coating on the Amiodarone tablet and he is not allergic to IV.
[2019-04-21] MEDS ORDERED: AMIODARONE FOR BOLUS 150 MG in D5W 100 ML IVPB 100 ML IV ONE (00:15)
[2019-04-21] MEDS ORDERED: DILTIAZEM IV FOR DRIP 125 MG in NS (IVPB) 100 ML IV SCH (01:15)
[2019-04-21 06:33] VITALS: BP 139/86
--- NOTE | 2019-04-21 07:15 | NUR ---
Listening to 911 Comunication over radio, [facility] paged to report to this ER for a transfer of patient to [facility]. The patient has anticipated this delayed transfer for hours with communication to him of delays incurred.
--- NOTE | 2019-04-21 07:25 | NUR ---
[facility] arrived 0720 and now departing to [facility] with patient remaining on prescribed Cardizem drip at 5 mg/hr. Monitor remains A Fib controlled rate 70's with occas pacer spikes noted. Pt has ambulated to bathroom before transfer and did fine.
--- NOTE | 2019-04-21 07:40 | NUR ---
Unable to reach nursing staff at [facility] to give ETA. Called to [facility] and left message to notify department. [employer] Technician reports no calls put through during shift reports.
--- OUTSIDE RECORDS SUMMARY | 2019-05-17 07:01 | XMS REPORT | Continuity of Care Document ---
Author Organization Unknown Address Unknown Phone Unavailable Allergies Active Description Code Type Severity Reaction Onset Reported/Identified Relationship to Patient Clinical Status Yes amiodarone [id number] Drug Allerg y Unknown N/A 08/13/2018 Medications There is no data. 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 07/17/2018 GUSTAFSON DO, ALIYAH L Ot Z87.8 91 PERSONAL HISTORY OF NICOTINE DEPENDENCE 07/17/2018 GUSTAFSON DO, ALIYAH L Ot Z90.8 9 ACQUIRED ABSENCE OF OTHER ORGANS 07/17/2018 GUSTAFSON DO, ALIYAH L Ot Z95.0 PRESENCE OF CARDIAC PACEMAKER 07/17/2018 GUSTAFSON DO, ALIYAH L Ot Z95.5 PRESENCE OF CORONARY ANGIOPLASTY IMPLANT 07/18/2018 GUSTAFSON DO, ALIYAH L Ot G47.3 0 SLEEP APNEA, UNSPECIFIED 07/18/2018 GUSTAFSON DO, ALIYAH L Ot I20.9 ANGINA PECTORIS, UNSPECIFIED 07/18/2018 GUSTAFSON DO, ALIYAH L Ot I25.2 OLD MYOCARDIAL INFARCTION 07/18/2018 GUSTAFSON DO, ALIYAH L Ot I48.9 1 UNSPECIFIED ATRIAL FIBRILLATION 07/18/2018 GUSTAFSON DO, ALIYAH L Ot R00.2 PALPITATIONS 07/18/2018 GUSTAFSON DO, ALIYAH L Ot Z85.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 07/18/2018 GUSTAFSON DO, ALIYAH L Ot Z87.8 91 PERSONAL HISTORY OF NICOTINE DEPENDENCE 07/18/2018 GUSTAFSON DO, ALIYAH L Ot Z90.8 9 ACQUIRED ABSENCE OF OTHER ORGANS 07/18/2018 GUSTAFSON DO, ALIYAH L Ot Z95.0 PRESENCE OF CARDIAC PACEMAKER 07/18/2018 GUSTAFSON DO, ALIYAH L Ot Z95.5 PRESENCE OF CORONARY ANGIOPLASTY IMPLANT 08/10/2018 GUSTAFSON DO, ALIYAH L Ot G47.3 0 SLEEP APNEA, UNSPECIFIED 08/10/2018 GUSTAFSON DO, ALIYAH L Ot I20.9 ANGINA PECTORIS, UNSPECIFIED 08/10/2018 GUSTAFSON DO, ALIYAH L Ot I25.2 OLD MYOCARDIAL INFARCTION 08/10/2018 GUSTAFSON DO, ALIYAH L Ot I48.9 1 UNSPECIFIED ATRIAL FIBRILLATION 08/10/2018 GUSTAFSON DO, ALIYAH L Ot R00.2 PALPITATIONS 08/10/2018 GUSTAFSON DO, ALIYAH L Ot Z85.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 08/10/2018 GUSTAFSON DO, ALIYAH L Ot Z87.8 91 PERSONAL HISTORY OF NICOTINE DEPENDENCE 08/10/2018 GUSTAFSON DO, ALIYAH L Ot Z90.8 9 ACQUIRED ABSENCE OF OTHER ORGANS 08/10/2018 GUSTAFSON DO, ALIYAH L Ot Z95.0 PRESENCE OF CARDIAC PACEMAKER 08/10/2018 GUSTAFSON DO, ALIYAH L Ot Z95.5 PRESENCE OF CORONARY ANGIOPLASTY IMPLANT 08/13/2018 NASIMA HIDALGO MD Ot G47.30 SLEEP APNEA, UNSPECIFIED 08/13/2018 NASIMA HIDALGO MD Ot I25.2 OLD MYOCARDIAL INFARCTION 08/13/2018 NASIMA HIDALGO MD Ot I48.91 UNSPECIFIED ATRIAL FIBRILLATION 08/13/2018 NASIMA HIDALGO MD Ot R40.214 2 COMA SCALE, EYES OPEN, SPONTANEOUS, EMR 08/13/2018 NASIMA HIDALGO MD Ot R40.225 2 COMA SCALE, BEST VERBAL RESPONSE, ORIENT 08/13/2018 NASIMA HIDALGO MD Ot R40.236 2 COMA SCALE, BEST MOTOR RESPONSE, OBEYS C 08/13/2018 NASIMA HIDALGO MD Ot S01.81X A LACERATION W/O FOREIGN BODY OF OTH PART 08/13/2018 NASIMA HIDALGO MD Ot W22.09X A STRIKING AGAINST OTHER STATIONARY OBJECT 08/13/2018 NASIMA HIDALGO MD Ot Z79.01 REGIONAL DIRECTOR OF FINANCE (CURRENT) USE OF ANTICOAGULANT 08/13/2018 NASIMA HIDALGO MD Ot Z85.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 OF OTHER MALIGNANT NEOP 08/13/2018 NASIMA HIDALGO MD Ot Z87.891 PERSONAL HISTORY OF NICOTINE DEPENDENCE 08/13/2018 NASIMA HIDALGO MD Ot Z88.8 ALLERGY STATUS TO OTH DRUG/MEDS/BIOL SUB 08/13/2018 NASIMA HIDALGO MD Ot Z90.89 ACQUIRED ABSENCE OF OTHER ORGANS 08/13/2018 NASIMA HIDALGO MD Ot Z95.0 PRESENCE OF CARDIAC PACEMAKER 08/13/2018 NASIMA HIDALGO MD Ot Z95.5 PRESENCE OF CORONARY ANGIOPLASTY IMPLANT 08/18/2018 NASIMA HIDALGO MD Ot G47.30 SLEEP APNEA, UNSPECIFIED 08/18/2018 NASIMA HIDALGO MD Ot I25.2 OLD MYOCARDIAL INFARCTION 08/18/2018 NASIMA HIDALGO MD, Ot I48.91 UNSPECIFIED ATRIAL FIBRILLATION 08/18/2018 NASIMA HIDALGO MD Ot R40.214 2 COMA SCALE, EYES OPEN, SPONTANEOUS, EMR 08/18/2018 NASIMA HIDALGO MD Ot R40.225 2 COMA SCALE, BEST VERBAL RESPONSE, ORIENT 08/18/2018 NASIMA HIDALGO MD Ot R40.236 2 COMA SCALE, BEST MOTOR RESPONSE, OBEYS C 08/18/2018 NASIMA HIDALGO MD Ot S01.81X A LACERATION W/O FOREIGN BODY OF OTH PART 08/18/2018 NASIMA HIDALGO MD Ot W22.09X A STRIKING AGAINST OTHER STATIONARY OBJECT 08/18/2018 NASIMA HIDALGO MD Ot Z79.01 REGIONAL DIRECTOR OF FINANCE (CURRENT) USE OF ANTICOAGULANT 08/18/2018 NASIMA HIDALGO MD Ot Z85.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 OF OTHER MALIGNANT NEOP 08/18/2018 NASIMA HIDALGO MD Ot Z87.891 PERSONAL HISTORY OF NICOTINE DEPENDENCE 08/18/2018 NASIMA HIDALGO MD Ot Z88.8 ALLERGY STATUS TO OTH DRUG/MEDS/BIOL SUB 08/18/2018 NASIMA HIDALGO MD Ot Z90.89 ACQUIRED ABSENCE OF OTHER ORGANS 08/18/2018 NASIMA HIDALGO MD Ot Z95.0 PRESENCE OF CARDIAC PACEMAKER 08/18/2018 NASIMA HIDALGO MD Ot Z95.5 PRESENCE OF CORONARY ANGIOPLASTY IMPLANT 08/18/2018 GUSTAFSON DO, ALIYAH L Ot G47.3 0 SLEEP APNEA, UNSPECIFIED 08/18/2018 GUSTAFSON DO, ALIYAH L Ot I20.9 ANGINA PECTORIS, UNSPECIFIED 08/18/2018 GUSTAFSON DO, ALYIAH L Ot I25.2 OLD MYOCARDIAL INFARCTION 08/18/2018 GUSTAFSON DO, ALIYAH L Ot I48.9 1 UNSPECIFIED ATRIAL FIBRILLATION 08/18/2018 GUSTAFSON DO, ALIYAH L Ot R00.2 PALPITATIONS 08/18/2018 GUSTAFSON DO, ALIYAH L Ot Z85.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 08/18/2018 GUSTAFSON DO, ALIYAH L Ot Z87.8 91 PERSONAL HISTORY OF NICOTINE DEPENDENCE 08/18/2018 GUSTAFSON DO, ALIYAH L Ot Z90.8 9 ACQUIRED ABSENCE OF OTHER ORGANS 08/18/2018 GUSTAFSON DO, ALIYAH L Ot Z95.0 PRESENCE OF CARDIAC PACEMAKER 08/18/2018 GUSTAFSON DO, ALIYAH L Ot Z95.5 PRESENCE OF CORONARY ANGIOPLASTY IMPLANT 09/10/2018 NASIMA HIDALGO MD Ot G47.30 SLEEP APNEA, UNSPECIFIED 09/10/2018 NASIMA HIDALGO MD Ot I25.2 OLD MYOCARDIAL INFARCTION 09/10/2018 NASIMA HIDALGO MD Ot I48.91 UNSPECIFIED ATRIAL FIBRILLATION 09/10/2018 NASIMA HIDALGO MD Ot R40.214 2 COMA SCALE, EYES OPEN, SPONTANEOUS, EMR 09/10/2018 NASMIA HIDALGO MD Ot R40.225 2 COMA SCALE, BEST VERBAL RESPONSE, ORIENT 09/10/2018 NASIMA HIDALGO MD Ot R40.236 2 COMA SCALE, BEST MOTOR RESPONSE, OBEYS C 09/10/2018 NASIMA HIDALGO MD Ot S01.81X A LACERATION W/O FOREIGN BODY OF OTH PART 09/10/2018 NASIMA HIDALGO MD Ot W22.09X A STRIKING AGAINST OTHER STATIONARY OBJECT 09/10/2018 NASIMA HIDALGO MD Ot Z79.01 REGIONAL DIRECTOR OF FINANCE (CURRENT) USE OF ANTICOAGULANT 09/10/2018 NASIMA HIDALGO MD Ot Z85.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 OF OTHER MALIGNANT NEOP 09/10/2018 NASIMA HIDALGO MD Ot Z87.891 PERSONAL HISTORY OF NICOTINE DEPENDENCE 09/10/2018 NASIMA HIDALGO MD Ot Z88.8 ALLERGY STATUS TO OT DRUG/MEDS/BIOL SUB 09/10/2018 NASIMA HIDALGO MD Ot Z90.89 ACQUIRED ABSENCE OF OTHER ORGANS 09/10/2018 NASIMA HIDALGO MD Ot Z95.0 PRESENCE OF CARDIAC PACEMAKER 09/10/2018 NASIMA HIDALGO MD Ot Z95.5 PRESENCE OF CORONARY ANGIOPLASTY IMPLANT 11/07/2018 JENNI AVALOS MD Ot E78. 00 PURE HYPERCHOLESTEROLEMIA, UNSPECIFIED 11/07/2018 JENNI AVALOS MD Ot F41. 9 ANXIETY DISORDER, UNSPECIFIED 11/07/2018 JENNI AVALOS MD Ot G47. 30 SLEEP APNEA, UNSPECIFIED 11/07/2018 JENNI AVALOS MD Ot I25. 10 ATHSCL HEART DISEASE OF [place] CORONARY 11/07/2018 JENNI AVALOS MD Ot I25. 2 OLD MYOCARDIAL INFARCTION 11/07/2018 JENNI AVALOS MD Ot I48. 91 UNSPECIFIED ATRIAL FIBRILLATION 11/07/2018 JENNI AVALOS MD Ot M06. 9 RHEUMATOID ARTHRITIS, UNSPECIFIED 11/07/2018 JENNI AVALOS MD Ot M79. 7 FIBROMYALGIA 11/07/2018 JENNI AVALOS MD Ot R07. 89 OTHER CHEST PAIN 11/07/2018 JENNI AVALOS MD Ot R42 DIZZINESS AND GIDDINESS 11/07/2018 JENNI AVALOS MD Ot Z79. 01 REGIONAL DIRECTOR OF FINANCE (CURRENT) USE OF ANTICOAGULANT 11/07/2018 JENNI AVALOS MD Ot Z85.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 OF OTHER MALIGNANT NEOP 11/07/2018 JENNI AVALOS MD Ot Z87.891 PERSONAL HISTORY OF NICOTINE DEPENDENCE 11/07/2018 JENNI AVALOS MD Ot Z88. 8 ALLERGY STATUS TO OT DRUG/MEDS/BIOL SUB 11/07/2018 JENNI AVALOS MD Ot Z90. 89 ACQUIRED ABSENCE OF OTHER ORGANS 11/07/2018 JENNI AVALOS MD Ot Z91. 14 PATIENT'S OTHER NONCOMPLIANCE WITH MEDIC 11/07/2018 JENNI AVALOS MD Ot Z95. 0 PRESENCE OF CARDIAC PACEMAKER 11/07/2018 JENNI AVALOS MD Ot Z95. 5 PRESENCE OF CORONARY ANGIOPLASTY IMPLANT 11/09/2018 JENNI AVALOS MD Ot E78. 00 PURE HYPERCHOLESTEROLEMIA, UNSPECIFIED 11/09/2018 JENNI AVALOS MD Ot F41. 9 ANXIETY DISORDER, UNSPECIFIED 11/09/2018 JENNI AVALOS MD Ot G47. 30 SLEEP APNEA, UNSPECIFIED 11/09/2018 JENNI AVALOS MD Ot I25. 10 ATHSCL HEART DISEASE OF [place] CORONARY 11/09/2018 JENNI AVALOS MD Ot I25. 2 OLD MYOCARDIAL INFARCTION 11/09/2018 JENNI AVALOS MD Ot I48. 91 UNSPECIFIED ATRIAL FIBRILLATION 11/09/2018 JENNI AVALOS MD Ot M06. 9 RHEUMATOID ARTHRITIS, UNSPECIFIED 11/09/2018 JENNI AVALOS MD Ot M79. 7 FIBROMYALGIA 11/09/2018 JENNI AVALOS MD Ot R07. 89 OTHER CHEST PAIN 11/09/2018 JENNI AVALOS MD Ot R42 DIZZINESS AND GIDDINESS 11/09/2018 JENNI AVALOS MD Ot Z79. 01 RESIDENTIAL (CURRENT) USE OF ANTICOAGULANT 11/09/2018 JENNI AVALOS MD Ot Z85.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 OF OTHER MALIGNANT NEOP 11/09/2018 JENNI AVALOS MD Ot Z87.891 PERSONAL HISTORY OF NICOTINE DEPENDENCE 11/09/2018 JENNI AVALOS MD Ot Z88. 8 ALLERGY STATUS TO OT DRUG/MEDS/BIOL SUB 11/09/2018 JENNI AVALOS MD Ot Z90. 89 ACQUIRED ABSENCE OF OTHER ORGANS 11/09/2018 JENNI AVALOS MD Ot Z91. 14 PATIENT'S OTHER NONCOMPLIANCE WITH MEDIC 11/09/2018 JENNI AVALOS MD Ot Z95. 0 PRESENCE OF CARDIAC PACEMAKER 11/09/2018 JENNI AVALOS MD Ot Z95. 5 PRESENCE OF CORONARY ANGIOPLASTY IMPLANT 04/09/2019 GUSTAFSON DO, ALIYAH L Ot I25.2 OLD MYOCARDIAL INFARCTION 04/09/2019 GUSTAFSON DO, ALIYAH L Ot I48.9 1 UNSPECIFIED ATRIAL FIBRILLATION 04/09/2019 GUSTAFSON DO, ALIYAH L Ot I49.8 OTHER SPECIFIED CARDIAC ARRHYTHMIAS 04/09/2019 GUSTAFSON DO, ALIYAH L Ot R10.1 3 EPIGASTRIC PAIN 04/09/2019 GUSTAFSON DO, ALIYAH L Ot Z79.5 2 RESIDENTIAL (CURRENT) USE OF SYSTEMIC STER 04/09/2019 GUSTAFSON DO, ALIYAH L Ot Z85.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 04/09/2019 GUSTAFSON DO, ALIYAH L Ot Z87.8 91 PERSONAL HISTORY OF NICOTINE DEPENDENCE 04/09/2019 GUSTAFSON DO, ALIYAH L Ot Z88.8 ALLERGY STATUS TO OTH DRUG/MEDS/BIOL SUB 04/09/2019 GUSTAFSON DO, ALIYAH L Ot Z90.8 9 ACQUIRED ABSENCE OF OTHER ORGANS 04/09/2019 GUSTAFSON DO, ALIYAH L Ot Z95.0 PRESENCE OF CARDIAC PACEMAKER 04/09/2019 GUSTAFSON DO, ALIYAH L Ot Z95.5 PRESENCE OF CORONARY ANGIOPLASTY IMPLANT 04/18/2019 GUSTAFSON DO, ALIYAH L Ot I25.2 OLD MYOCARDIAL INFARCTION 04/18/2019 GUSTAFSON DO, ALIYAH L Ot I48.9 1 UNSPECIFIED ATRIAL FIBRILLATION 04/18/2019 GUSTAFSON DO, ALIYAH L Ot I49.8 OTHER SPECIFIED CARDIAC ARRHYTHMIAS 04/18/2019 GUSTAFSON DO, ALIYAH L Ot R10.1 3 EPIGASTRIC PAIN 04/18/2019 GUSTAFSON DO, ALIYAH L Ot Z79.5 2 RESIDENTIAL (CURRENT) USE OF SYSTEMIC STER 04/18/2019 GUSTAFSON DO, ALIYAH L Ot Z85.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 04/18/2019 GUSTAFSON DO, ALIYAH L Ot Z87.8 91 PERSONAL HISTORY OF NICOTINE DEPENDENCE 04/18/2019 GUSTAFSON DO, ALIYAH L Ot Z88.8 ALLERGY STATUS TO OTH DRUG/MEDS/BIOL SUB 04/18/2019 GUSTAFSON DO, ALIYAH L Ot Z90.8 9 ACQUIRED ABSENCE OF OTHER ORGANS 04/18/2019 GUSTAFSON DO, ALIYAH L Ot Z95.0 PRESENCE OF CARDIAC PACEMAKER 04/18/2019 GUSTAFSON DO, ALIYAH L Ot Z95.5 PRESENCE OF CORONARY ANGIOPLASTY IMPLANT 04/21/2019 EMILIA ALVAREZ, MIGUEL A Ot E78. 00 PURE HYPERCHOLESTEROLEMIA, UNSPECIFIED 04/21/2019 EMILIA ALVAREZ, MIGUEL A Ot I10 ESSENTIAL (PRIMARY) HYPERTENSION 04/21/2019 EMILIA ALVAREZ, MIGUEL A Ot I25. 2 OLD MYOCARDIAL INFARCTION 04/21/2019 EMILIA ALVAREZ, MIGUEL A Ot I48. 91 UNSPECIFIED ATRIAL FIBRILLATION 04/21/2019 MIGUEL NIETO MD A Ot R00. 2 PALPITATIONS 04/21/2019 EMILIA ALVAREZ, MIGUEL A Ot Z79. 52 REGIONAL DIRECTOR OF FINANCE (CURRENT) USE OF SYSTEMIC STER 04/21/2019 MIGUEL NIETO MD A Ot Z85.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 OF OTHER MALIGNANT NEOP 04/21/2019 MIGUEL NIETO MD A Ot Z87.891 PERSONAL HISTORY OF NICOTINE DEPENDENCE 04/21/2019 IMGUEL NIETO MD A Ot Z88. 8 ALLERGY STATUS TO OTH DRUG/MEDS/BIOL SUB 04/21/2019 MIGUEL NIETO MD A Ot Z95. 5 PRESENCE OF CORONARY ANGIOPLASTY IMPLANT 04/30/2019 MIGEUL NIETO MD A Ot E78. 00 PURE HYPERCHOLESTEROLEMIA, UNSPECIFIED 04/30/2019 MIGULE NIETO MD A Ot I10 ESSENTIAL (PRIMARY) HYPERTENSION 04/30/2019 MIGUEL NIETO MD A Ot I25. 2 OLD MYOCARDIAL INFARCTION 04/30/2019 MIGUEL NIETO MD A Ot I48. 91 UNSPECIFIED ATRIAL FIBRILLATION 04/30/2019 MIGUEL NIETO MD A Ot R00. 2 PALPITATIONS 04/30/2019 MIGUEL NIETO MD A Ot Z79. 52 RESIDENTIAL (CURRENT) USE OF SYSTEMIC STER 04/30/2019 MIGUEL NIETO MD A Ot Z85.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 OF OTHER MALIGNANT NEOP 04/30/2019 MIGUEL NIETO MD A Ot Z87.891 PERSONAL HISTORY OF NICOTINE DEPENDENCE 04/30/2019 MIGUEL NIETO MD A Ot Z88. 8 ALLERGY STATUS TO OTH DRUG/MEDS/BIOL SUB 04/30/2019 MIGUEL NIETO MD A Ot Z95. 5 PRESENCE OF CORONARY ANGIOPLASTY IMPLANT Procedures There [...] 5-14 Serum or plasma urea nitrogen measurement (mass/volume ) 15 mg/dL 7-18 Serum or plasma creatinine measurement (mass/volume) 0.95 mg/dL 0.60-1.30 Serum or plasma urea nitrogen/creatinine mass ratio 16 NRG Serum or plasma creatinine measurement w ith calculation of estimated glomerular filtration rate > NRG Serum or plasma glucose measurement (mass/volume) 117 mg/dL 70-105 Serum or plasma calcium measurement (mass/volume) 9.0 mg/dL 8.5-10.1 Serum or plasma total bilirubin measurement (mass/volu me) 0.7 mg/dL 0.1-1.0 Serum or plasma alkaline phosphatase maricruz surement (enzymatic activity/volume) 67 U/L 40-136 Serum or plasma aspartate aminotransfera se measurement (enzymatic activity/volume) 28 U/L 5-34 Serum or plasma alanine aminotransferase measurement (enzymatic activity/volume) 26 U/L 0-55 Serum or plasma protein measurement (mass/volume) 6.9 g/dL 6.4-8.2 Serum or plasma albumin measurement (mass/volume) 4.2 g/dL 3.2-4.5 CALCIUM CORRECTED 8.8 mg/dL 8.5-10.1 Magnesium - 07/16/18 22:33 Magnesium 2.1 mg/dL 1.8-2.4 TROPONIN T - 07/16/18 22:33 TROPONIN T 11 % <=15 Complete blood count (CBC) with automate d white blood cell (WBC) differential - 07/16/18 22:33 Blood leukocytes automated count (number/volume) 10.3 10*3/uL 4.3-11.0 Blood erythrocytes automated count (number/volume) 4.93 10*6/uL 4.35-5.85 Venous blood hemoglobin measurement (mass/volume) 16.1 g/dL 13.3-17.7 Blood hematocrit (volume fraction) 45 % 40-54 Automated erythrocyte mean corpuscular volume 92 [ foz_us] 80-99 Automated erythrocyte mean corpuscular h emoglobin (mass per erythrocyte) 33 pg 25-34 Automated erythrocyte mean corpuscular h emoglobin concentration measurement (mass/volume) 36 g/dL 32-36 Automated erythrocyte distribution width ratio 12. 4 % 10.0- 14.5 Automated blood platelet count [...] 10*3 1.0-4.0 Blood monocytes automated count (number/volume) 1. 1 10*3 0.0-1.0 Automated eosinophil count 0.3 10*3/uL 0 .0-0.3 Automated blood basophil count (count/volume) 0.1 10*3/uL 0.0-0.1 PT panel in platelet poor plasma by coag ulation assay - 07/16/18 22:33 Prothrombin time (PT) in platelet poor plasma by coagu lation assay 14.3 s 12.2-14.7 INR in platelet poor plasma or blood by coagulation as say 1.1 0.8-1.4 Activated partial thromboplastin time (a PTT) in platelet poor plasma bycoagulation assay - 07/16/18 22:33 Activated partial thromboplastin time (a PTT) in platelet poor plasma bycoagulation assay 29 s 24-35 Automated blood complete blood count (he mogram) panel - 08/13/18 10:05 Blood leukocytes automated count (number/volume) 8.5 10*3/uL 4.3-11.0 Blood erythrocytes automated count (number/volume) 4.80 10*6/uL 4.35-5.85 Venous blood hemoglobin measurement (mass/volume) 15.5 g/dL 13.3-17.7 Blood hematocrit (volume fraction) 45 % 40-54 Automated erythrocyte mean corpuscular volume 94 [ foz_us] 80-99 Automated erythrocyte mean corpuscular h emoglobin (mass per erythrocyte) 32 pg 25-34 Automated erythrocyte mean corpuscular h emoglobin concentration measurement (mass/volume) 35 g/dL 32-36 Automated erythrocyte distribution width ratio 12. 5 % 10.0- 14.5 Automated blood platelet count (count/volume) 293 10*3/uL 130-400 Automated blood platelet mean volume measurement 9.3 [foz_us] 7.4-10.4 PT panel in platelet poor plasma by coag ulation assay - 08/13/18 10:05 Prothrombin time (PT) in platelet poor plasma by coagu lation assay 13.8 s 12.2-14.7 INR in platelet poor plasma or blood by coagulation as say 1.1 0.8-1.4 Activated partial thromboplastin time (a PTT) in platelet poor plasma bycoagulation assay - 08/13/18 10:05 Activated partial thromboplastin time (a PTT) in platelet poor plasma bycoagulation assay 26 s 24-35 Complete blood count (CBC) with automate d white blood cell (WBC) differential - 11/07/18 10:24 Blood leukocytes automated count (number/volume) 6.9 10*3/uL 4.3-11.0 Blood erythrocytes automated count (number/volume) 5.41 10*6/uL 4.35-5.85 Venous blood hemoglobin measurement (mass/volume) 17.4 g/dL 13.3-17.7 Blood hematocrit (volume fraction) 50 % 40-54 Automated erythrocyte mean corpuscular volume 92 [ foz_us] 80-99 Automated erythrocyte mean corpuscular h emoglobin (mass per erythrocyte) 32 pg 25-34 Automated erythrocyte mean corpuscular h emoglobin concentration measurement (mass/volume) 35 g/dL 32-36 Automated erythrocyte distribution width ratio 12. 7 % 10.0- 14.5 Automated blood platelet count (count/volume) 251 10*3/uL 130-400 Automated blood platelet mean volume measurement 9.4 [foz_us] 7.4-10.4 Automated blood neutrophils/100 leukocytes 64 % 42-75 Automated blood lymphocytes/100 leukocytes 24 % 12-44 Blood monocytes/100 leukocytes 9 % 0-12 Automated blood eosinophils/100 leukocytes 2 % 0-10 Automated blood basophils/100 leukocytes 1 % 0-10 Blood neutrophils automated count (number/volume) 4.4 10*3 1.8-7.8 Blood lymphocytes automated count (number/volume) 1.7 10*3 1.0-4.0 Blood monocytes automated count (number/volume) 0. 6 10*3 0.0-1.0 Automated eosinophil count 0.2 10*3/uL 0 .0-0.3 Automated blood basophil count (count/volume) 0.0 10*3/uL 0.0-0.1 PT panel in platelet poor plasma by coag ulation assay - 11/07/18 10:24 Prothrombin time (PT) in platelet poor plasma by coagu lation assay 14.0 s 12.2-14.7 INR in platelet poor plasma or blood by coagulation as say 1.0 0.8-1.4 Activated partial thromboplastin time (a PTT) in platelet poor plasma bycoagulation assay - 11/07/18 10:24 Activated partial thromboplastin time (a PTT) in platelet poor plasma bycoagulation assay 27 s 24-35 Comprehensive metabolic panel - 11/07/18 10:24 Serum or plasma sodium measurement (moles/volume) 139 mmol/L 135-145 Serum or plasma potassium measurement (moles/volume) 4.4 mmol/L 3.6-5.0 Serum or plasma chloride measurement (moles/volume) 102 mmol/L 98-107 Carbon dioxide 23 mmol/L 21-32 Serum or plasma anion gap determination (moles/volume) 14 mmol/L 5-14 Serum or plasma urea nitrogen measurement (mass/volume ) 16 mg/dL 7-18 Serum or plasma creatinine measurement (mass/volume) 0.90 mg/dL 0.60-1.30 Serum or plasma urea nitrogen/creatinine mass ratio 18 NRG Serum or plasma creatinine measurement w ith calculation of estimated glomerular filtration rate > NRG Serum or plasma glucose measurement (mass/volume) 104 mg/dL 70-105 Serum or plasma calcium measurement (mass/volume) 9.3 mg/dL 8.5-10.1 Serum or plasma total bilirubin measurement (mass/volu me) 0.9 mg/dL 0.1-1.0 Serum or plasma alkaline phosphatase maricruz surement (enzymatic activity/volume) 67 U/L 40-136 Serum or plasma aspartate aminotransfera se measurement (enzymatic activity/volume) 28 U/L 5-34 Serum or plasma alanine aminotransferase measurement (enzymatic activity/volume) 29 U/L 0-55 Serum or plasma protein measurement (mass/volume) 7.1 g/dL 6.4-8.2 Serum or plasma albumin measurement (mass/volume) 4.3 g/dL 3.2-4.5 CALCIUM CORRECTED 9.1 mg/dL 8.5-10.1 Magnesium - 11/07/18 10:24 Magnesium 2.1 mg/dL 1.8-2.4 Myoglobin, serum - 11/07/18 10:24 Myoglobin, serum 30.5 ng/mL 10.0-92.0 TROPONIN T - 11/07/18 10:24 TROPONIN T 9 % <=15 PROBNP FS - 11/07/18 10:24 PROBNP FS 161.5 pg/mL <75.0 TROPONIN T - 11/07/18 12:13 TROPONIN T 8 % <=15 Automated blood complete blood count (he mogram) panel - 04/09/19 20:34 Blood leukocytes automated count (number/volume) 11.0 10*3/uL 4.3-11.0 Blood erythrocytes automated count (number/volume) 4.88 10*6/uL 4.35-5.85 Venous blood hemoglobin measurement (mass/volume) 15.6 g/dL 13.3-17.7 Blood hematocrit (volume fraction) 45 % 40-54 Automated erythrocyte mean corpuscular volume 93 [ foz_us] 80-99 Automated erythrocyte mean corpuscular h emoglobin (mass per erythrocyte) 32 pg 25-34 Automated erythrocyte mean corpuscular h emoglobin concentration measurement (mass/volume) 34 g/dL 32-36 Automated erythrocyte distribution width ratio 13. 2 % 10.0- 14.5 Automated blood platelet count (count/volume) 296 10*3/uL 130-400 Automated blood platelet mean volume measurement 9.3 [foz_us] 7.4-10.4 Comprehensive metabolic panel - 04/09/19 20:34 Serum or plasma sodium measurement (moles/volume) 136 mmol/L 135-145 Serum or plasma potassium measurement (moles/volume) 4.1 mmol/L 3.6-5.0 Serum or plasma chloride measurement (moles/volume) 101 mmol/L 98-107 Carbon dioxide 24 mmol/L 21-32 Serum or plasma anion gap determination (moles/volume) 11 mmol/L 5-14 Serum or plasma urea nitrogen measurement (mass/volume ) 20 mg/dL 7-18 Serum or plasma creatinine measurement (mass/volume) 1.12 mg/dL 0.60-1.30 Serum or plasma urea nitrogen/creatinine mass ratio 18 NRG Serum or plasma creatinine measurement w ith calculation of estimated glomerular filtration rate > NRG Serum or plasma glucose measurement (mass/volume) 108 mg/dL 70-105 Serum or plasma calcium measurement (mass/volume) 8.8 mg/dL 8.5-10.1 Serum or plasma total bilirubin measurement (mass/volu me) 0.8 mg/dL 0.1-1.0 Serum or plasma alkaline phosphatase maricruz surement (enzymatic activity/volume) 57 U/L 40-136 Serum or plasma aspartate aminotransfera se measurement (enzymatic activity/volume) 20 U/L 5-34 Serum or plasma alanine aminotransferase measurement (enzymatic activity/volume) 25 U/L 0-55 Serum or plasma protein measurement (mass/volume) 6.5 g/dL 6.4-8.2 Serum or plasma albumin measurement (mass/volume) 4.0 g/dL 3.2-4.5 CALCIUM CORRECTED 8.8 mg/dL 8.5-10.1 Magnesium - 04/09/19 20:34 Magnesium 2.2 mg/dL 1.6-2.4 Complete blood count (CBC) with automate d white blood cell (WBC) differential - 04/20/19 21:40 Blood leukocytes automated count (number/volume) 8.8 10*3/uL 4.3-11.0 Blood erythrocytes automated count (number/volume) 4.90 10*6/uL 4.35-5.85 Venous blood hemoglobin measurement (mass/volume) 16.0 g/dL 13.3-17.7 Blood hematocrit (volume fraction) 45 % 40-54 Automated erythrocyte mean corpuscular volume 92 [ foz_us] 80-99 Automated erythrocyte mean corpuscular h emoglobin (mass per erythrocyte) 33 pg 25-34 Automated erythrocyte mean corpuscular h emoglobin concentration measurement (mass/volume) 35 g/dL 32-36 Automated erythrocyte distribution width ratio 13. 2 % 10.0- 14.5 Automated blood platelet count (count/volume) 248 10*3/uL 130-400 Automated blood platelet mean volume measurement 9.0 [foz_us] 7.4-10.4 Automated blood neutrophils/100 leukocytes 60 % 42-75 Automated blood lymphocytes/100 leukocytes 29 % 12-44 Blood monocytes/100 leukocytes 8 % 0-12 Automated blood eosinophils/100 leukocytes 3 % 0-10 Automated blood basophils/100 leukocytes 1 % 0-10 Blood neutrophils automated count (number/volume) 5.3 10*3 1.8-7.8 Blood lymphocytes automated count (number/volume) 2.6 10*3 1.0-4.0 Blood monocytes automated count (number/volume) 0. 7 10*3 0.0-1.0 Automated eosinophil count 0.2 10*3/uL 0 .0-0.3 Automated blood basophil count (count/volume) 0.0 10*3/uL 0.0-0.1 PT panel in platelet poor plasma by coag ulation assay - 04/20/19 21:40 Prothrombin time (PT) in platelet poor plasma by coagu lation assay 12.7 s 12.2-14.7 INR in platelet poor plasma or blood by coagulation as say 0.9 0.8-1.4 Activated partial thromboplastin time (a PTT) in platelet poor plasma bycoagulation assay - 04/20/19 21:40 Activated partial thromboplastin time (a PTT) in platelet poor plasma bycoagulation assay 26 s 24-35 TROPONIN I FS - 04/20/19 21:40 TROPONIN I FS < 0.30 <0.30 Comprehensive metabolic panel - 04/20/19 21:40 Serum or plasma sodium measurement (moles/volume) 140 mmol/L 135-145 Serum or plasma potassium measurement (moles/volume) 3.4 mmol/L 3.6-5.0 Serum or plasma chloride measurement (moles/volume) 102 mmol/L 98-107 Carbon dioxide 23 mmol/L 21-32 Serum or plasma anion gap determination (moles/volume) 15 mmol/L 5-14 Serum or plasma urea nitrogen measurement (mass/volume ) 17 mg/dL 7-18 Serum or plasma creatinine measurement (mass/volume) 0.94 mg/dL 0.60-1.30 Serum or plasma urea nitrogen/creatinine mass ratio 18 NRG Serum or plasma creatinine measurement w ith calculation of estimated glomerular filtration rate > NRG Serum or plasma glucose measurement (mass/volume) 133 mg/dL 70-105 Serum or plasma calcium measurement (mass/volume) 9.2 mg/dL 8.5-10.1 Serum or plasma total bilirubin measurement (mass/volu me) 1.0 mg/dL 0.1-1.0 Serum or plasma alkaline phosphatase maricruz surement (enzymatic activity/volume) 70 U/L 40-136 Serum or plasma aspartate aminotransfera se measurement (enzymatic activity/volume) 25 U/L 5-34 Serum or plasma alanine aminotransferase measurement (enzymatic activity/volume) 27 U/L 0-55 Serum or plasma protein measurement (mass/volume) 7.1 g/dL 6.4-8.2 Serum or plasma albumin measurement (mass/volume) 4.3 g/dL 3.2-4.5 CALCIUM CORRECTED 9.0 mg/dL 8.5-10.1 Magnesium - 04/20/19 21:40 Magnesium 2.3 mg/dL 1.6-2.4 Encounters ACCT No. Visit Date/Time Discharge Status Pt. Type Provider Facility Loc./Unit Complaint [id number] 04/30/2019 13:30:00 04/30/2019 23:59: 59 [facility] [id number] 04/20/2019 21:33:00 07:25:00 DIS Emergency MIGUEL NIETO MD [facility] ER FS STATES A-FIB [id number] 04/09/2019 20:25:00 21:43:00 DIS Emergency ALIYAH GUSTAFSON DO [facility] ER FS LOW HEART RATE [id number] 11/07/2018 10:13:00 13:05:00 DIS Emergency JENNI AVALOS MD [facility] ER FS HEART PALPITATIONS; BP 170/110; DIZZINESS [id number] 08/13/2018 09:54:00 11:28:00 DIS Emergency ROCKY ALVAREZ, NASIMA torres [facility] ER FS [place] [id number] 07/16/2018 22:31:00 00:03:00 DIS Emergency ALIYAH GSUTAFSON DO [facility] ER FS RAPID HEART RATE
== END 2019-04-21 07:25 | disposition short-term general hospital (02) ==
LOC: EDUNIT# 21:32 → ER FS 21:33
DX: I48.91 Unspecified atrial fibrillation (principal); I10 Essential (primary) hypertension; E78.00 Pure hypercholesterolemia, unspecified; I25.2 Old myocardial infarction; Z85.828 Personal history of other malignant neoplasm of skin; Z88.8 Allergy status to other drugs, medicaments and biological substances; Z79.52 Long term (current) use of systemic steroids; Z87.891 Personal history of nicotine dependence; Z95.5 Presence of coronary angioplasty implant and graft
CPT/HCPCS: 36415; 71045; 80053; 83735; 84484; 85025; 85610; 85730; 93005; 93041; 96365; 96366; 96375

== ENCOUNTER → 2020-01-18 | Outpatient (CLI) | payer MEDICARE | LOC: LAB FS 09:39 | PROVIDERS: ATTEND Internal Medicine | DX: Z11.59 Encounter for screening for other viral diseases (principal); Z20.828 Contact with and (suspected) exposure to other viral communicable diseases | CPT/HCPCS: 87635 ==

== ENCOUNTER 2020-02-07 09:18 | Emergency (ER) | payer MEDICARE ==
[~2020-02-07] VITALS: Ht 175 cm; Wt 83.9 kg
[2020-02-07 10:00] LABS: HEMATOCRIT 49 % (40-54); HEMOGLOBIN 16.8 G/DL (13.3-17.7); LYMPHOCYTES % (AUTO) 25 % (12-44); MEAN CORPUSCULAR HEMOGLOBIN 32 PG (25-34); MEAN CORPUSCULAR HGB CONC 34 G/DL (32-36); MEAN CORPUSCULAR VOLUME 93 FL (80-99); MEAN PLATELET VOLUME 9.2 FL (7.4-10.4); NEUTROPHILS % (AUTO) 63 % (42-75); PLATELET COUNT 287 10^3/uL (130-400)
[2020-02-07] MEDS ORDERED: ASPIRIN 81 MG CHEW (CHILDREN'S ASA) PO ONE (10:00)
--- NOTE | 2020-02-07 10:00 | ED Chest Pain ---
General Chief Complaint: Chest Pain Stated Complaint: CHEST PAIN Nursing Triage Note: complaining of chest pain that started aroun 4 a.m. States has hx of afib and could feel his heart racing and had chest tightness. Denies nausea or vomiting. 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 Nursing Sepsis Screen: No Definite Risk Source: patient Exam Limitations: no limitations History of Present Illness Date Seen by Provider: Feb 07, 2020 Time Seen by Provider: 09:20 Initial Comments The patient is a pleasant 69-year-old male presents for evaluation of chest discomfort which started around 0400 this morning. 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 He states that he was recently admitted at because he was initiated on sotalol. Upon arrival he states that the chest discomfort he is having does not remind him of his previous heart attacks. He was not aware that he was in atrial fibrillation as he is not in it very frequently and thinks this is why he is having the chest discomfort. He also states that his chest wall is sore and palpation makes it worse. Dr. Kebede is the patient's cloud software engineer at [facility]. He is alert and oriented 4, calm, and appears to be in no distress this time. He denies nausea or vomiting, diaphoresis, dizziness, syncope, abdominal discomfort, back or flank discomfort, because the patient takes both Plavix and Eliquis as he refuses the aspirin. Timing/Duration: 4-6 hours Severity/Quality: mild Location: substernal Radiation: no radiation Activities at Onset: none Prior CP/Workup: cardiac cath, heart attack ASA po PET STYLIST: No NTG SL PET STYLIST: No Associated Symptoms: denies symptoms Allergies and Home Medications Allergies Coded Allergies: amiodarone (Verified Allergy, Unknown, 08/13/18) Home Medications Prednisone 20 Mg Tab, 20 MG PO BID Prescribed by: JENNI AVALOS on 11/07/18 1243 Patient Home Medication List Home Medication List Reviewed: Yes Review of Systems Review of Systems Constitutional: no symptoms reported EENTM: No Symptoms Reported Respiratory: No Symptoms Reported Cardiovascular: Chest Pain Gastrointestinal: No Symptoms Reported Genitourinary: No Symptoms Reported Musculoskeletal: no symptoms reported Skin: no symptoms reported Psychiatric/Neurological: No Symptoms Reported Endocrine: No Symptoms Reported Hematologic/Lymphatic: No Symptoms Reported All Other Systems Reviewed Negative Unless Noted: Yes Past Sqgfmrw-Fwyudn-Vqafgt Hx Past Med/Social Hx: Reviewed Nursing Past Med/Soc Hx Patient Social History Alcohol Use: Denies Use Number of Drinks Today: AA Alcohol Beverage of Choice: Beer Recreational Drug Use: No Former Smoker, Quit: May 16, 1988 2nd Hand Smoke Exposure: No Recent Foreign Travel: No Contact w/Someone Who Travel: No Recent Infectious Disease Expo: No Recent Hopitalizations: No Physical Abuse: No Sexual Abuse: No Mistreated: No Fear: No Immunizations Up To Date Tetanus Booster (TDap): Less than 5yrs Date of Influenza Vaccine: Feb 24, 2019 Seasonal Allergies Seasonal Allergies: No Past Medical History Surgeries: Yes (BILAT KNEE ARTHROSCOPY, ULNA NERVE SURGERY, CARPAL TUNNEL R, COLONOSCOPY ) Cardiac, Coronary Stent, Pacemaker, Tonsillectomy Respiratory: Yes Sleep Apnea Currently Using CPAP: No Currently Using BIPAP: No Cardiac: Yes Angina, Atrial Fibrillation, Heart Attack, High Cholesterol, Hypertension Neurological: No Sexually Transmitted Disease: No HIV/AIDS: No Genitourinary: No Gastrointestinal: No Musculoskeletal: No Endocrine: No HEENT: No Hearing Impairment: Denies Cancer: Yes Skin Did You Recieve Any Treatments: Yes What Type of Treatment Did You: Surgical Intervention Psychosocial: No Integumentary: No Blood Disorders: No Physical Exam Vital Signs Vital Signs - First Documented 02/07/20 09:32 Temp 36.5 Pulse 96 Resp 16 B/P (MAP) 146/80 (102) Pulse Ox 98 Capillary Refill : Less Than 3 Seconds Height, Weight, BMI Height: 5'8.00" Weight: 175lbs. oz. 79.662322bj; 27.00 BMI Method:Estimated General Appearance: No Apparent Distress, WD/WN HEENT: PERRL/EOMI, Normal ENT Inspection, Pharynx Normal Neck: Full Range of Motion, Normal Inspection, Non Tender, Supple Respiratory: Lungs Clear, Normal Breath Sounds, No Accessory Muscle Use, No Respiratory Distress Cardiovascular: No Edema, No Gallop, No JVD, Normal Peripheral Pulses, Irregularly Irregular Gastrointestinal: Normal Bowel Sounds, No Pulsatile Mass, Non Tender, Soft Extremity: Normal Capillary Refill, Normal Inspection, Non Tender, No Pedal Edema Neurologic/Psychiatric: Alert, Oriented x3, No Motor/Sensory Deficits, Normal Mood/Affect Skin: Normal Color, Warm/Dry Procedures/Interventions Suture Size: 6-0 Progress/Results/Core Measures Results/Orders Lab Results Laboratory Tests Test 02/07/20 09:27 02/07/20 12:09 Range/Units White Blood Count 8.0 4.3-11.0 10^3/uL Red Blood Count 5.24 4.35-5.85 10^6/uL Hemoglobin 16.8 13.3-17.7 G/DL Hematocrit 49 40-54 % Mean Corpuscular Volume 93 80-99 FL Mean Corpuscular Hemoglobin 32 25-34 PG Mean Corpuscular Hemoglobin Concent 34 32-36 G/DL Red Cell Distribution Width 12.8 10.0-14.5 % Platelet Count 287 130-400 10^3/uL Mean Platelet Volume 9.2 7.4-10.4 FL Immature Granulocyte % (Auto) 0 % Neutrophils (%) (Auto) 63 42-75 % Lymphocytes (%) (Auto) 25 12-44 % Monocytes (%) (Auto) 10 0-12 % Eosinophils (%) (Auto) 2 0-10 % Basophils (%) (Auto) 1 0-10 % Neutrophils # (Auto) 5.0 1.8-7.8 X 10^3 Lymphocytes # (Auto) 2.0 1.0-4.0 X 10^3 Monocytes # (Auto) 0.8 0.0-1.0 X 10^3 Eosinophils # (Auto) 0.2 0.0-0.3 10^3/uL Basophils # (Auto) 0.0 0.0-0.1 10^3/uL Immature Granulocyte # (Auto) 0.0 0.0-0.1 10^3/uL Prothrombin Time 14.5 12.2-14.7 SEC INR Comment 1.1 0.8-1.4 Activated Partial Thromboplast Time 29 24-35 SEC Sodium Level 136 135-145 MMOL/L Potassium Level 4.5 3.6-5.0 MMOL/L Chloride Level 103 98-107 MMOL/L Carbon Dioxide Level 23 21-32 MMOL/L Anion Gap 10 5-14 MMOL/L Blood Urea Nitrogen 15 7-18 MG/DL Creatinine 0.89 0.60-1.30 MG/DL Estimat Glomerular Filtration Rate > 60 BUN/Creatinine Ratio 17 Glucose Level 132 H 70-105 MG/DL Calcium Level 9.4 8.5-10.1 MG/DL Corrected Calcium 9.3 8.5-10.1 MG/DL Magnesium Level 2.3 1.6-2.4 MG/DL Total Bilirubin 0.7 0.1-1.0 MG/DL Aspartate Amino Transf (AST/SGOT) 26 5-34 U/L Alanine Aminotransferase (ALT/SGPT) 30 0-55 U/L Alkaline Phosphatase 75 40-136 U/L Troponin I < 0.30 < 0.30 <0.30 NG/ML Pro-B-Type Natriuretic Peptide 523.0 H <75.0 PG/ML Total Protein 6.9 6.4-8.2 GM/DL Albumin 4.1 3.2-4.5 GM/DL My Orders Orders - WESLEY PLUNKETT DO Cbc With Automated Diff (02/07/20 09:50) Magnesium (02/07/20 09:50) Chest 1 View Ap/Pa Only (02/07/20 09:50) Ekg Tracing (02/07/20 09:50) Comprehensive Metabolic Panel (02/07/20 09:50) Protime With Inr (02/07/20 09:50) Partial Thromboplastin Time (02/07/20 09:50) O2 (02/07/20 09:50) Monitor-Rhythm Ecg Trace Only (02/07/20 09:50) Aspirin Chewable Tablet (Baby Aspirin Ch (02/07/20 10:00) Ed Iv/Invasive Line Start (02/07/20 09:50) Creatine Kinase (02/07/20 09:50) Creatine Kinase Mb (02/07/20 09:50) Troponin I Fs (02/07/20 09:50) Probnp Fs (02/07/20 09:50) Troponin I Fs (02/07/20 12:15) Medications Given in ED Current Medications Medications Dose Ordered Sig/Sujatha Route Start Time Stop Time Status Last Admin Dose Admin Aspirin 324 mg ONCE ONCE PO 02/07/20 10:00 02/07/20 10:01 DC 02/07/20 10:36 324 MG Vital Signs/I&O 02/07/20 09:32 Temp 36.5 Pulse 96 Resp 16 B/P (MAP) 146/80 (102) Pulse Ox 98 Blood Pressure Mean: 102 Progress Progress Note : Progress Note @1240 - patient updated on lab and imaging results. He states that he feels completely better at this time and has no complaints. Awaiting the second troponin at this time. @1251 - second troponin is negative. Workup today fails to reveal any emergent pathology and the patient is stable for discharge home. Advised the patient to follow up with his cloud software engineer and/or PCP in the next 1-2 days, to continue taking his prescribed medications, and to return to the emergency Department immediately for chest pain, difficult breathing, new or worsening symptoms. The patient expresses verbal understanding and agreement with the plan and is stable for discharge at this time. Comment @0919 - atrial fibrillation with a rapid ventricular response, rate of 101, normal axis, no acute ischemic findings noted, no STEMI, reviewed and interpreted by myself Diagnostic Imaging Diagonstic Imaging: Xray Comments [facility] [place], [place] NAME: CALEB POOLE [facility] REC#: [id number] PT STATUS: REG ER : 1950 PHYSICIAN: WESLEY PLUNKETT DO ADMIT DATE: 02/07/20/ER FS Draft Date of Exam:02/07/20 CHEST 1 VIEW AP/PA ONLY INDICATION: Chest pain COMPARISON: 04/20/2019 FINDINGS: Single frontal view of the chest demonstrates normal heart size and pulmonary vascularity. The lungs are well aerated and clear. No large pleural effusion or pneumothorax is seen. The visualized osseous structures show no acute abnormalities. Left-sided dual-lead pacemaker is noted. IMPRESSION: 1. No acute cardiopulmonary process. Dictated on workstation # [id number] Dict: 02/07/20 1003 Trans: 02/07/20 1004 [facility] [id number] Interpreted by: CANDACE CHAU MD Electronically signed by: Departure Impression Primary Impression: Chest pain Additional Impression: Atrial fibrillation Disposition: 01 HOME, SELF-CARE Condition: Stable Departure-Patient Inst. Decision time for Depature: 12:51 Referrals: SHEEBA BEDOLLA DO (PCP/Family) Primary Care Physician Patient Instructions: Atrial Fibrillation (DC) Add. Discharge Instructions: Follow-up with your cloud software engineer in the next 1-2 days. Continue to take your prescribed medications. Return to the emergency department for chest pain, difficult to breathing, new or worsening symptoms. WESLEY PLUNKETT DO Feb 07, 2020 10:00
[2020-02-07 10:01] LABS: BASOPHILS % (AUTO) 1 % (0-10); EOSINOPHILS # (AUTO) 0.2 10^3/uL (0.0-0.3); EOSINOPHILS % (AUTO) 2 % (0-10); MONOCYTES # (AUTO) 0.8 X 10^3 (0.0-1.0); MONOCYTES % (AUTO) 10 % (0-12)
--- NOTE | 2020-02-07 10:04 | Diagnostic Imaging Report ---
INDICATION: Chest pain COMPARISON: 04/20/2019 FINDINGS: Single frontal view of the chest demonstrates normal heart size and pulmonary vascularity. The lungs are well aerated and clear. No large pleural effusion or pneumothorax is seen. The visualized osseous structures show no acute abnormalities. Left-sided dual-lead pacemaker is noted. IMPRESSION: 1. No acute cardiopulmonary process. Dictated by: Dictated on workstation # [id number]
[2020-02-07 10:06] LABS: INR 1.1 (0.8-1.4); PROTHROMBIN TIME PATIENT 14.5 SEC (12.2-14.7)
[2020-02-07 10:31] LABS: ALKALINE PHOSPHATASE 75 U/L (40-136); BILIRUBIN,TOTAL 0.7 MG/DL (0.1-1.0); BUN/CREATININE RATIO 17; CALCIUM 9.4 MG/DL (8.5-10.1); CARBON DIOXIDE 23 MMOL/L (21-32); CHLORIDE 103 MMOL/L (98-107); CREATININE SERUM 0.89 MG/DL (0.60-1.30); GFR ESTIMATED > 60; GLUCOSE 132 MG/DL (70-105); MAGNESIUM 2.3 MG/DL (1.6-2.4); POTASSIUM 4.5 MMOL/L (3.6-5.0); SODIUM 136 MMOL/L (135-145)
[2020-02-07 10:32] LABS: ALANINE AMINOTRANSFERASE 30 U/L (0-55); ALBUMIN 4.1 GM/DL (3.2-4.5); TOTAL PROTEIN 6.9 GM/DL (6.4-8.2)
[2020-02-07 13:05] VITALS: BP 129/77
[2020-02-07 14:30] LABS: CREATINE KINASE 82 U/L (30-200)
[2020-02-07 14:36] LABS: CREATINE KINASE MB 1.5 NG/ML (<6.6)
== END 2020-02-07 13:05 | disposition home or self-care (01) ==
LOC: EDUNIT# 09:18 → ER FS 09:20
DX: I48.91 Unspecified atrial fibrillation (principal); I25.2 Old myocardial infarction; I10 Essential (primary) hypertension; Z79.02 Long term (current) use of antithrombotics/antiplatelets; Z79.01 Long term (current) use of anticoagulants; Z88.8 Allergy status to other drugs, medicaments and biological substances; Z95.5 Presence of coronary angioplasty implant and graft; Z79.52 Long term (current) use of systemic steroids; Z87.891 Personal history of nicotine dependence; Z85.828 Personal history of other malignant neoplasm of skin
CPT/HCPCS: 36415; 71045; 80053; 82550; 82553; 83735; 83880; 84484; 85025; 85610; 85730; 93005; 93041

== ENCOUNTER 2021-04-27 23:06 | Emergency (ER) | payer MEDICARE ==
[~2021-04-27] VITALS: Ht 175 cm; Wt 86.0 kg
[~2021-04-27 23:06] MED LIST changes: -ISOS30TA3; +ISOS30TA82
--- OUTSIDE RECORDS SUMMARY | 2021-04-27 23:12 | XMS REPORT | Clinical Summary ---
Author Author [facility] Organization [facility] Address Unknown Phone Unavailable Care Team Providers Care Moccasin Sewer Name Role Phone Cody Madrigal PCP Matthew Crandall MD Unavailable Unavailable Source Comments Some departments are not documenting in the electronic medical record. If you d o not see the information that you expected, contact Release of Information in [facility] [employer] Information Management department at [phone] for further assistan ce in locating additional records.[facility] Allergies Comments Active Allergy Reactions Severity Noted Date Amiodarone drip is ok, tablets not tolerated Amiodarone HIVES, MUSCLE Medium 09/07/2019 PAIN Ivpjrza-Jcg-Ebp Reductase MUSCLE PAIN Medium 08/15 Inhibitors Medications End Date Status Medication Sig Dispensed Refills Start Date Active losartan-hydrochlorothiaz Take 1 tablet 0 fercho (HYZAAR) 50-12.5 mg by mouth at tablet bedtime daily. Active cyanocobalamin (VITAMIN Take 500 mcg 0 B-12) 500 mcg tablet by mouth every morning. Active diclofenac (VOLTAREN) 1 % Apply 2 g 0 topical gel topically to affected area four times daily as needed. Active B Complex-Folic Acid Take 1 tablet 0 (BALANCE B-100 (FOLIC by mouth ACID)) 0.4 mg tab every morning. B-200 blend Active Cholecalciferol (Vitamin Take 1 0 D3) (VITAMIN D-3) 50 mcg capsule by (2,000 unit) cap mouth every morning. W/ 111 mg of calcium Active metoprolol XL (TOPROL XL) Take 25 mg by 0 25 mg extended release mouth daily. tablet Takes in evening Active coenzyme Q10 200 mg Take 200 mg 0 capsule by mouth twice daily. Active apixaban (ELIQUIS) 5 mg Take 5 mg by 0 tablet mouth twice daily. Active ascorbic acid (VITAMIN C) Take 500 mg 0 500 mg tablet by mouth every morning. With Demetria Hips Active clopiDOGrel (PLAVIX) 75 Take 75 mg by 0 mg tablet mouth daily. Takes PM Active famotidine (PEPCID) 20 mg Take 20 mg by 0 tablet mouth every morning. Active isosorbide mononitrate SR Take 30 mg by 0 (IMDUR) 30 mg tablet mouth every morning. Active multivitamin (DAILY-CLAUDIA Take 1 tablet 0 PO) by mouth daily. Active vitamin A 10,000 unit Take 10,000 0 capsule Units by mouth every morning. Active fish Take 2,160 mg 0 oil/borage/flax/om3,6,9 1 base by (OMEGA 3-6-9 COMPLEX PO) mouth. Hemp oil, omega 3 and 6 capsules. 720 mg per cap Active gabapentin (NEURONTIN) Take 800 mg 0 800 mg tablet by mouth four times daily. Active Magnesium 200 mg tab Take 1 tablet 0 by mouth at bedtime daily. Active VITAMIN E ACETATE PO Take 1 tablet 0 by mouth every morning. Takes 500 IU Active turmeric (CURCUMIN MISC) Take 1 tablet 0 by mouth every morning. Ultra GAINES-2 Combo includes: curcumin, quercetin, boswellin, pheliodendrom bark extract 900 mg total Active simvastatin (ZOCOR) 40 mg Take one 30 tablet 1 tablet tablet by 0 mouth at bedtime daily. Active sotaloL (BETAPACE) 120 mg Take one 60 tablet 1 tab tablet by 0 mouth every 12 hours. Active ezetimibe (ZETIA) 10 mg Take one 30 tablet 1 tablet tablet by 0 mouth daily. Active Problems Problem Noted Date Atrial fibrillation 01/23/2020 Pacemaker malfunction, subsequent encounter 09/10/19 20 Myalgia due to statin 09/10/2019 PVC's (premature ventricular contractions) 0 Atypical chest pain 09/10/2019 CAD (coronary artery disease) 09/07/2019 Overview: Formatting of this note is different fr om the original. 10/11/2018 - ECHO: ([facility]) Nor mal left ventricular systolic function, EF of 60%, with no evidence o f regional wall motion abnormality. Concentric left ventricular hypertrop hy with relaxation anomaly. Moderate mitral valve regurgitation w ith no evidence of mitral valve stenosis. Mild left atrial enlargemen t. No evidence of aortic valve disease. Normal aortic root size. Nor mal right ventricular function with pacemaker wire. Moderate tricuspid re gurgitation with preserved pulmonary pressures. No evidence of pericardial disease. 04/22/2019 - ECHO: ([facility]) Nor mal left ventricular size and systolic function. Diastolic dysfuncti on. Mild tricuspid regurgitation with normal calculated RV systolic pres sure. Mild mitral regurgitation with borderline left atrial size. Line ar density in the right heart chambers consistent with pacemaker lead . 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 Paroxysmal atrial fibrillation 09/07/2019 Mitral valve regurgitation 09/07/2019 HTN (hypertension) 09/07/2019 Cardiac pacemaker in situ 09/07/2019 Tension type headache 09/07/2019 Resolved Problems Problem Noted Date Resolved Date S/P CABG (coronary artery bypass graft) 09/07/2019 09/10/2019 Surgical History Surgery Date Site/Laterality Comments RHYTHM DEVICE PLACEMENT CARDIOVASCULAR STRESS TEST DOPPLER ECHOCARDIOGRAPHY Medical History Medical History Date Comments CAD (coronary artery disease) 09/07/2019 S/P CABG (coronary artery bypass 09/07/2019 graft) AF (atrial fibrillation) (HCC) 09/07/2019 Mitral valve regurgitation 09/07/2019 HTN (hypertension) 09/07/2019 Cardiac pacemaker in situ 09/07/2019 Tension type headache 09/07/2019 Family History Medical History Relation Name Comments Coronary Artery Disease Father Heart Attack Father Heart Surgery Father Premature Heart Disease Father High Cholesterol Mother Transient Ischaemic Mother Attack Relation Name Status Comments Father Mother Social History Date Tobacco Use Types Packs/Day Years Used Quit: 09/09/1988 Former Smoker 2 21 Smokeless Tobacco: Never Used Comments Alcohol Use Standard Drinks/Week Yes 21 (1 standard drink = 0.6 oz pure alcohol) Sex Assigned at Date Recorded Male 09/06/2019 11:44 AM CDT Last Filed Vital Signs Reading Time Taken Comments Vital Sign 125/82 01/26/2020 7:44 AM CDT Blood Pressure 74 01/26/2020 7:44 AM CDT Pulse 36.2 C (97.2 F) 01/26/2020 7:44 AM CDT Temperature - - Respiratory Rate 94% 01/26/2020 7:44 AM CDT Oxygen Saturation - - Inhaled Oxygen Concentration 82.6 kg (182 lb 3.2 oz) 01/23/2020 1:24 PM CDT Weight 175.3 cm (5' 9") 01/23/2020 1:24 PM CDT Height 26.91 01/23/2020 1:24 PM CDT Body Mass Index Plan of Treatment Health Maintenance Due Date Last Done Comments MEDICARE ANNUAL WELLNESS 1950 VISIT DTAP/TDAP VACCINES (1 - 1966 Tdap) HEPATITIS C SCREENING 1966 PHYSICAL (COMPREHENSIVE) 1966 EXAM COLORECTAL CANCER 1998 SCREENING SHINGLES RECOMBINANT 1998 VACCINE (1 of 2) ABDOMINAL AORTIC ANEURYSM 2013 SCREENING PNEUMONIA (PPSV23) 2013 VACCINE (1 of 1 - PPSV23) INFLUENZA VACCINE 12/14/2020 Goals Goal Patient Associated Recent Progress Patient-Stat Aut hor Goal Type Problems ed? Improve wellness [facility] No Radha Kenyon, [facility] Results Not on filefrom Last 3 Months Insurance Type Payer Benefit Subscriber ID Effective Phone Address Plan / Dates Group Medicare MEDICARE MEDICARE [id number] 2013- [phone] [address] AND Present [address] [place] [address] O [facility] AAR [id number] 2019-P [address] [place] [address] (Home) [place], [place] [address] Advance Directives Patient [place] Explanation Type Date Recorded Advance 01/23/2020 12:00 AM Directive/DPOA Date Inactivated Comments Code Status Date Activated 01/26/2020 1:12 PM Full Code 01/23/2020 1:44 PM Provider has discussed Code Status Yes w/Patient or Family? Care Teams Start Date End Date Moccasin Sewer Relationship Specialty 09/24/19 Cody Madrigal, PCP - General Family [facility] [place] [address] 01/02/20 aMtthew Crandall MD Cardiovascul ar Disease
[2021-04-27] MEDS ORDERED: NS IV 1000 ML 1,000 ML IV STA (23:20)
--- NOTE | 2021-04-27 23:28 | ED Cardiac General ---
History of Present Illness General Chief Complaint: Cardiac/General Problems Stated Complaint: A-FIB Nursing Triage Note: Pt reports being in Afib since 1930 tonight and feeling heart palpitations. Pt denies cough or fever. Source: patient, spouse History of Present Illness Date Seen by Provider: Apr 27, 2021 Time Seen by Provider: 23:07 Initial Comments 71-year-old male presenting with complaints of atrial fibrillation. He states since around 7 or 730 tonight he had been having some chest pain of associated with heart palpitations. He took his pulse and it was over 120 at home. He does have a history of chronic atrial fibrillation. He had the Watchman procedure this summer. Since then he has been off of Eliquis. He has not missed any doses of his regular medications. He takes sotalol in addition to metoprolol to help control his atrial fibrillation. He states that it seems like every year in the winter he has an episode of atrial fibrillation. He denies doing anything this evening to trigger the atrial fibrillation. He was just at home when this started. 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 ASA po BULLARD OPERATOR: No Associated Systoms: Chest Pain; No Cough, No Diaphoresis, No Fever/Chills, No Headaches, No Loss of Appetite, No Malaise, No Nausea/Vomiting, No Seizure, No Shortness of Air, No Syncope, No Weakness Allergies and Home Medications Allergies Coded Allergies: amiodarone (Verified Allergy, Unknown, 08/13/18) Patient Home Medication List Home Medication List Reviewed: Yes Clopidogrel Bisulfate (Clopidogrel) 75 Mg Tablet, (Reported) Entered as Reported by: IVON ATKINS on 07/16/182350 Famotidine (Famotidine) 20 Mg Tablet, (Reported) Entered as Reported by: IVON ATKINS on 07/16/182350 Gabapentin (Gabapentin) 300 Mg Capsule, (Reported) Entered as Reported by: IVON ATKINS on 07/16/182350 Isosorbide Mononitrate (Isosorbide Mononitrate ER) 30 Mg Tab.er.24h, (Reported) Entered as Reported by: IVON ATKINS on 07/16/182350 Prednisone (Prednisone) 20 Mg Tab, 20 MG PO BID Prescribed by: JENNI AVALOS on 11/07/18 1243 Simvastatin (Simvastatin) 80 Mg Tablet, (Reported) Entered as Reported by: IVON ATKINS on 07/16/18 2351 Sotalol HCl (Sotalol) 80 Mg Tablet, (Reported) Entered as Reported by: IVON ATKINS on 07/16/18 2351 Review of Systems Review of Systems Constitutional: No chills, No fever EENTM: No Symptoms Reported Respiratory: No Symptoms Reported Cardiovascular: See HPI Gastrointestinal: No Symptoms Reported Genitourinary: No Symptoms Reported Musculoskeletal: no symptoms reported Skin: no symptoms reported Psychiatric/Neurological: No Symptoms Reported Endocrine: No Symptoms Reported Past Fmurskq-Mfjisi-Ujzvjc Hx Immunizations Up To Date Tetanus Booster (TDap): Less than 5yrs Seasonal Allergies Seasonal Allergies: No Past Medical History Surgery/Hospitalization HX: Chronic Atrial Fibrillation, Watchman Procedure Summer 2020 Surgeries: Yes (BILAT KNEE ARTHROSCOPY, ULNA NERVE SURGERY, CARPAL TUNNEL R, COLONOSCOPY ) Cardiac, Coronary Stent, Pacemaker, Tonsillectomy Respiratory: Yes Sleep Apnea Currently Using CPAP: No Currently Using BIPAP: No Cardiac: Yes Angina, Atrial Fibrillation, Heart Attack, High Cholesterol, Hypertension Neurological: No Sexually Transmitted Disease: No HIV/AIDS: No Genitourinary: No Gastrointestinal: No Musculoskeletal: No Endocrine: No HEENT: No Hearing Impairment: Denies Cancer: Yes Skin Did You Recieve Any Treatments: Yes What Type of Treatment Did You: Surgical Intervention Psychosocial: No Integumentary: No Blood Disorders: No Physical Exam Vital Signs Vital Signs - First Documented 04/27/21 23:10 Temp 36.8 Pulse 109 Resp 15 B/P (MAP) 146/107 (120) Pulse Ox 95 O2 Delivery Room Air Capillary Refill : Less Than 3 Seconds Height, Weight, BMI Height: 5'8.00" Weight: 175lbs. oz. 79.877346lo; 28.00 BMI Method:Estimated General Appearance: No Apparent Distress, WD/WN Neck: Full Range of Motion, Normal Inspection, Non Tender, Supple Respiratory: Chest Non Tender, Lungs Clear, Normal Breath Sounds, No Accessory Muscle Use, No Respiratory Distress Cardiovascular: Normal Peripheral Pulses, Irregularly Irregular, Tachycardia Gastrointestinal: Normal Bowel Sounds, No Pulsatile Mass, Non Tender, Soft Rectal: Deferred Extremity: Normal Capillary Refill, Normal Inspection, No Pedal Edema Neurologic/Psychiatric: Alert, Oriented x3 Skin: Warm/Dry Procedures/Interventions Suture Size: 6-0 Progress/Results/Core Measures Results/Orders Lab Results Laboratory Tests Test 04/27/21 23:30 Range/Units White Blood Count 8.5 4.3-11.0 10^3/uL Red Blood Count 5.00 4.30-5.52 10^6/uL Hemoglobin 16.5 13.3-17.7 g/dL Hematocrit 46 40-54 % Mean Corpuscular Volume 91 80-99 fL Mean Corpuscular Hemoglobin 33 25-34 pg Mean Corpuscular Hemoglobin Concent 36 32-36 g/dL Red Cell Distribution Width 12.9 10.0-14.5 % Platelet Count 271 130-400 10^3/uL Mean Platelet Volume 8.8 L 9.0-12.2 fL Immature Granulocyte % (Auto) 0 % Neutrophils (%) (Auto) 51 42-75 % Lymphocytes (%) (Auto) 35 12-44 % Monocytes (%) (Auto) 10 0-12 % Eosinophils (%) (Auto) 3 0-10 % Basophils (%) (Auto) 1 0-10 % Neutrophils # (Auto) 4.4 1.8-7.8 X 10^3 Lymphocytes # (Auto) 2.9 1.0-4.0 X 10^3 Monocytes # (Auto) 0.9 0.0-1.0 X 10^3 Eosinophils # (Auto) 0.3 0.0-0.3 10^3/uL Basophils # (Auto) 0.0 0.0-0.1 10^3/uL Immature Granulocyte # (Auto) 0.0 0.0-0.1 10^3/uL Prothrombin Time 12.5 12.2-14.7 SEC INR Comment 0.9 0.8-1.4 Activated Partial Thromboplast Time 23 L 24-35 SEC Sodium Level 138 135-145 MMOL/L Potassium Level 4.0 3.6-5.0 MMOL/L Chloride Level 102 98-107 MMOL/L Carbon Dioxide Level 23 21-32 MMOL/L Anion Gap 13 5-14 MMOL/L Blood Urea Nitrogen 19 H 7-18 MG/DL Creatinine 0.96 0.60-1.30 MG/DL Estimat Glomerular Filtration Rate 77 BUN/Creatinine Ratio 20 Glucose Level 111 H 70-105 MG/DL Calcium Level 9.1 8.5-10.1 MG/DL Corrected Calcium 9.0 8.5-10.1 MG/DL Magnesium Level 2.0 1.6-2.4 MG/DL Total Bilirubin 0.5 0.1-1.0 MG/DL Aspartate Amino Transf (AST/SGOT) 24 5-34 U/L Alanine Aminotransferase (ALT/SGPT) 27 0-55 U/L Alkaline Phosphatase 67 40-136 U/L Troponin I < 0.30 <0.30 NG/ML Pro-B-Type Natriuretic Peptide 481.4 H <75.0 PG/ML Total Protein 6.6 6.4-8.2 GM/DL Albumin 4.1 3.2-4.5 GM/DL My Orders Orders - LARISSA RANKIN MD Cbc With Automated Diff (04/27/21 23:20) Magnesium (04/27/21 23:20) Chest 1 View Ap/Pa Only (04/27/21 23:20) Ekg Tracing (04/27/21 23:20) Comprehensive Metabolic Panel (04/27/21 23:20) Protime With Inr (04/27/21 23:20) Partial Thromboplastin Time (04/27/21 23:20) O2 (04/27/21 23:20) Monitor-Rhythm Ecg Trace Only (04/27/21 23:20) Ed Iv/Invasive Line Start (04/27/21 23:20) Troponin I Fs (04/27/21 23:20) Probnp Fs (04/27/21 23:20) Ns Iv 1000 Ml (Sodium Chloride 0.9%) (04/27/21 23:20) Diltiazem Injection (Cardizem Injection) (04/27/21 23:20) Metoprolol Tartrate Injection (Lopressor (04/28/21 00:31) Ekg Tracing (04/28/21 00:31) Vital Signs/I&O 04/27/21 04/27/21 04/28/21 04/28/21 23:10 23:35 00:00 00:30 Temp 36.8 Pulse 109 138 85 86 Resp 15 14 17 19 B/P (MAP) 146/107 (120) 146/107 126/76 137/83 Pulse Ox 95 97 96 96 O2 Delivery Room Air Room Air Room Air 04/28/21 01:10 Pulse 87 Resp 15 B/P (MAP) 146/79 Pulse Ox 99 O2 Delivery Room Air Blood Pressure Mean: 120 Progress Progress Note #1: Progress Note Obtain electrocardiogram which showed atrial fibrillation with heart rate 109. Will obtain IV access and check basic labs and electrolytes. We will give IV fluids for hydration, 10 mg of IV diltiazem to try and help with heart rate and rhythm. Continue with telemetry monitoring for his rate and rhythm. Progress Note #2: Progress Note Labs appear stable without acute significant abnormality. His electrolytes did not show any acute changes that would account for his atrial fibrillation tonight. His chest x-ray was not showing any infiltrate. His troponin was negative. His heart rate had improved with the single dose of diltiazem. His blood pressure was also improved. Since he takes chronic metoprolol we will give a single dose of 5 mg IV metoprolol and plan on repeating his electrocardiogram but with his heart rate staying under 100 we will plan on trying to discharge to home. They will check with cardiology to see if they want to adjust or change any of his dosing of medicines or instruct him on trying an extra dose of metoprolol if he has atrial fibrillation Initial ECG Impression Date: Apr 27, 2021 Initial ECG Impression Time: 23:05 Initial ECG Rate: 109 Initial ECG Rhythm: A Fib/Flutter Initial ECG Comparisson: Unchanged Comment Atrial fibrillation with a heart rate of 109 bpm. PVCs are present. No acute ST elevation. QT interval 312 ms with a QTc interval 421 ms. Appears similar to prior tracings in the system. EKG : EKG Time: 00:55 Rate: 81 ECG Comparisson: Changed Comment Ventricular paced complexes noted with a rate of 81 bpm. WI interval 158 ms. QT interval 391 ms with a QTc interval 454 ms. This is improved from the atrial fibrillation with heart rate over 100 on his previous tracing. Diagnostic Imaging Diagonstic Imaging: Xray Plain Films/CT/US/NM/MRI: chest Comments [facility]. [place], [place] NAME: CAL[facility] POOLE [facility] REC#: [id number] PT STATUS: REG ER : 1950 PHYSICIAN: LARISSA RANKIN MD ADMIT DATE: 04/27/21/ER FS Signed Date of Exam:04/27/21 CHEST 1 VIEW AP/PA ONLY INDICATION: Chest pain and irregular heart rate. Frontal chest obtained at 1145 p.m. and compared to 02/07/2020. The heart is mildly enlarged. There is central vascular prominence. Pacemaker is unchanged compared to the prior study. There is no pneumothorax or pleural fluid or focal infiltrate. IMPRESSION: Mild cardiomegaly with central vascular prominence with stable pacemaker device. No new infiltrate or pneumothorax or pleural fluid. Dictated by: Dictated on workstation # [id number] Dict: 04/27/21 2357 Trans: 04/28/21 0003 GEORGE [id number] Interpreted by: HIGINIO OBRIEN MD Electronically signed by: HIGINIO OBRIEN MD 04/28/21 0003 Reviewed: Reviewed by Me Departure Impression Primary Impression: Atrial fibrillation Qualified Codes: I48.0 - Paroxysmal atrial fibrillation Disposition: 01 HOME, SELF-CARE Condition: Improved Departure-Patient Inst. Decision time for Depature: 01:03 Referrals: SHEEBA BEDOLLA DO (PCP/Family) Primary Care Physician Patient Instructions: Atrial Fibrillation and Atrial Flutter ED Add. Discharge Instructions: Call your program and research coordinator Tuesday morning to see how they want to address your recurrent atrial fibrillation. They may want to adjust your doses of medicine or occasionally they will advise you to take an extra dose of the metoprolol. Continue on your regular medicines All discharge instructions reviewed with patient and/or family. Voiced understanding. LARISSA RANKIN MD Apr 27, 2021 23:28
[2021-04-27 23:56] LABS: HEMATOCRIT 46 % (40-54); HEMOGLOBIN 16.5 g/dL (13.3-17.7); MEAN CORPUSCULAR HEMOGLOBIN 33 pg (25-34); MEAN CORPUSCULAR VOLUME 91 fL (80-99); MEAN PLATELET VOLUME 8.8 fL (9.0-12.2); NEUTROPHILS % (AUTO) 51 % (42-75); PLATELET COUNT 271 10^3/uL (130-400); WHITE BLOOD COUNT 8.5 10^3/uL (4.3-11.0)
[2021-04-27 23:57] LABS: BASOPHILS % (AUTO) 1 % (0-10); EOSINOPHILS # (AUTO) 0.3 10^3/uL (0.0-0.3); EOSINOPHILS % (AUTO) 3 % (0-10); LYMPHOCYTES # (AUTO) 2.9 X 10^3 (1.0-4.0); LYMPHOCYTES % (AUTO) 35 % (12-44); MONOCYTES # (AUTO) 0.9 X 10^3 (0.0-1.0); MONOCYTES % (AUTO) 10 % (0-12); NEUTROPHILS # (AUTO) 4.4 X 10^3 (1.8-7.8)
[2021-04-27 23:58] LABS: MEAN CORPUSCULAR HGB CONC 36 g/dL (32-36)
[2021-04-27 23:59] LABS: INR 0.9 (0.8-1.4); PROTHROMBIN TIME PATIENT 12.5 SEC (12.2-14.7)
--- NOTE | 2021-04-28 00:03 | Diagnostic Imaging Report ---
INDICATION: Chest pain and irregular heart rate. Frontal chest obtained at 1145 p.m. and compared to 02/07/2020. The heart is mildly enlarged. There is central vascular prominence. Pacemaker is unchanged compared to the prior study. There is no pneumothorax or pleural fluid or focal infiltrate. IMPRESSION: Mild cardiomegaly with central vascular prominence with stable pacemaker device. No new infiltrate or pneumothorax or pleural fluid. Dictated by: Dictated on workstation # [id number]
[2021-04-28 00:21] LABS: CALCIUM 9.1 MG/DL (8.5-10.1); CREATININE SERUM 0.96 MG/DL (0.60-1.30)
[2021-04-28 00:22] LABS: ALBUMIN 4.1 GM/DL (3.2-4.5); BILIRUBIN,TOTAL 0.5 MG/DL (0.1-1.0); TOTAL PROTEIN 6.6 GM/DL (6.4-8.2)
[2021-04-28] MEDS ORDERED: meTOprolol 5 MG/5 ML (LOPRESSOR) VIAL IV STA (00:31)
[2021-04-28 01:10] VITALS: BP 146/79
== END 2021-04-28 01:10 | disposition home or self-care (01) ==
LOC: EDUNIT# 23:06 → ER FS 23:08
DX: I48.20 Chronic atrial fibrillation, unspecified (principal); R00.0 Tachycardia, unspecified; G47.30 Sleep apnea, unspecified; I25.2 Old myocardial infarction; I10 Essential (primary) hypertension; E78.00 Pure hypercholesterolemia, unspecified; Z79.01 Long term (current) use of anticoagulants; Z79.899 Other long term (current) drug therapy
CPT/HCPCS: 36415; 71045; 80053; 83735; 83880; 84484; 85025; 85610; 85730; 93005; 93041

== ENCOUNTER 2022-01-30 11:02 | Emergency (ER) | payer MEDICARE ==
[~2022-01-30] VITALS: Ht 175.3 cm; Wt 93.3 kg
[2022-01-30 11:08] VITALS: BP 101/89
--- NOTE | 2022-01-30 11:22 | ED EENT ---
History of Present Illness General Chief Complaint: Foreign Body Stated Complaint: LT EAR FOREIGN OBJECT Source: patient Exam Limitations: no limitations History of Present Illness Date Seen by Provider: Jan 30, 2022 Time Seen by Provider: 11:05 Initial Comments 71-year-old male that is hard of hearing with hearing aids coming in because he feels like a piece of the hearing aid is missing and could be in his left ear. He does not have any pain. He did try to use a Q-tip to see if that would help and nothing came out. Otherwise denying any other acute complaints. This mendoza ppened this morning. Allergies and Home Medications Allergies Coded Allergies: amiodarone (Verified Allergy, Unknown, 08/13/18) Patient Home Medication List Home Medication List Reviewed: Yes Clopidogrel Bisulfate (Clopidogrel) 75 Mg Tablet, (Reported) Entered as Reported by: IVON ATKINS on 07/16/182350 Famotidine (Famotidine) 20 Mg Tablet, (Reported) Entered as Reported by: IVON ATKINS on 07/16/182350 Gabapentin (Gabapentin) 300 Mg Capsule, (Reported) Entered as Reported by: IVON ATKINS on 07/16/182350 Isosorbide Mononitrate (Isosorbide Mononitrate ER) 30 Mg Tab.er.24h, (Reported) Entered as Reported by: IVON ATKINS on 07/16/182350 Prednisone (Prednisone) 20 Mg Tab, 20 MG PO BID Prescribed by: JENNI AVALOS on 11/07/18 1243 Simvastatin (Simvastatin) 80 Mg Tablet, (Reported) Entered as Reported by: IVON ATKINS on 07/16/182350 Sotalol HCl (Sotalol) 80 Mg Tablet, (Reported) Entered as Reported by: IVON ATKINS on 07/16/182350 Review of Systems Review of Systems Constitutional: No fever Eyes: No Symptoms Reported Ears: See HPI Nose: no symptoms reported Mouth: no symptoms reported Throat: no symptoms reported Respiratory: no symptoms reported Cardiovascular: no symptoms reported Gastrointestinal: no symptoms reported Musculoskeletal: no symptoms reported Skin: no symptoms reported Neurological: No Symptoms Reported Hematologic/Lymphatic: No Symptoms Reported Immunological/Allergic: no symptoms reported All Other Systems Reviewed Negative Unless Noted: Yes Past Gcveujr-Bkojah-Ppfnoh Hx Patient Social History Tobacco Use?: No Immunizations Up To Date Tetanus Booster (TDap): Less than 5yrs First/Initial COVID19 Vaccinat: denies Seasonal Allergies Seasonal Allergies: No Past Medical History Surgery/Hospitalization HX: Chronic Atrial Fibrillation, Watchman Procedure Summer 2020 Surgeries: Yes (BILAT KNEE ARTHROSCOPY, ULNA NERVE SURGERY, CARPAL TUNNEL R, COLONOSCOPY ) Cardiac, Coronary Stent, Pacemaker, Tonsillectomy Respiratory: Yes Sleep Apnea Currently Using CPAP: No Currently Using BIPAP: No Cardiac: Yes Angina, Atrial Fibrillation, Heart Attack, High Cholesterol, Hypertension Neurological: No Sexually Transmitted Disease: No HIV/AIDS: No Genitourinary: No Gastrointestinal: No Musculoskeletal: No Endocrine: No HEENT: No Hearing Impairment: Denies Cancer: Yes Skin Did You Recieve Any Treatments: Yes What Type of Treatment Did You: Surgical Intervention Psychosocial: No Integumentary: No Blood Disorders: No Physical Exam Height, Weight, BMI Height: 5'8.00" Weight: 175lbs. oz. 79.133321kn; 28.00 BMI Method:Estimated General Appearance: WD/WN, no apparent distress Eyes: bilateral eye normal inspection Ears: bilateral ear auricle normal, bilateral ear canal normal, bilateral ear TM normal (Other than some scarring on the left TM more than so within the right, no foreign body seen) Nose: normal inspection Mouth/Throat: normal mouth inspection Neck: non-tender, full range of motion, supple, normal inspection Cardiovascular: regular rate, rhythm, no edema, no murmur Respiratory: chest non-tender, lungs clear, normal breath sounds, no respiratory distress, no accessory muscle use Gastrointestinal: normal bowel sounds, non tender, soft; No distended, No guarding Neurologic/Psychiatric: no motor/sensory deficits, alert, normal mood/affect Skin: normal color, warm/dry Procedures/Interventions Suture Size: 6-0 Progress/Results/Core Measures Progress Progress Note : Progress Note 71-year-old male with above history coming in to see if he has a foreign body in his left ear. ABCs were intact and vitals were stable on presentation. Physical exam reassuring with no visible foreign body. I went ahead and rinsed it out with saline to see if anything would break loose to become more visible, and I continued to not see anything. He does not have any pain or discomfort. I will have him refer back to his control panel assembler to get a replacement of the piece which is likely sitting on the floor somewhere. Departure Impression Primary Impression: Foreign body sensation in ear canal Qualified Codes: H61.892 - Other specified disorders of left external ear Disposition: HOME, SELF-CARE Condition: Stable Departure-Patient Inst. Decision time for Depature: 11:20 Referrals: SHEEBA BEDOLLA DO (PCP/Family) Primary Care Physician Patient Instructions: Foreign Body in Ear Add. Discharge Instructions: We do not see any foreign body and when we rinsed her ear out did not see anything come out or move. I would follow-up with your control panel assembler to get a replacement piece, and they can also look in your ear. If you develop any pain, redness spreading throughout your ear, pus coming out of your ear, fever then I would want you to be evaluated by a doctor sooner. OLIVIA BRODERICK MD Jan 30, 2022 11:21
== END 2022-01-30 11:23 | disposition home or self-care (01) ==
LOC: EDUNIT# 11:02 → ER FS 11:04
DX: T16.2XXA Foreign body in left ear, initial encounter (principal); Z28.310 Unvaccinated for COVID-19; W45.8XXA Other foreign body or object entering through skin, initial encounter
CPT/HCPCS: 99281

== ENCOUNTER 2022-09-20 07:26 | Emergency (ER) | payer MEDICARE ==
[2022-09-20] MEDS ORDERED: ACETAMINOPHEN 500 MG TAB (TYLENOL) PO ONE (07:45)
--- NOTE | 2022-09-20 07:47 | ED Lower Extremity ---
General Chief Complaint: Lower Extremity Stated Complaint: FALL; LT LEG PAIN Source: patient Exam Limitations: no limitations History of Present Illness Date Seen by Provider: September 20, 2022 Time Seen by Provider: 07:27 Initial Comments 72yoM with PMH of pAfib not on blood thinners coming in after he slipped last night and hurt his left leg. He states he was wearing sandals, slipped on his right foot, left knee went down to the ground, now with left knee pain and left hip pain. Has some mild left ankle pain, but has not been a big issue. He has not taken any medicines for any of this yet. The pain did make it difficult to sleep. He has been ambulatory. Denies any weakness, numbness, headache, vision changes, neck pain, back pain, or any other concerns. States he does not take any blood thinners, did not hit his head, did not pass out, or any other concerns. Allergies and Home Medications Allergies Coded Allergies: amiodarone (Verified Allergy, Unknown, 08/13/18) Patient Home Medication List Home Medication List Reviewed: Yes Clopidogrel Bisulfate (Clopidogrel) 75 Mg Tablet, (Reported) Entered as Reported by: IVON ATKINS on 07/16/182350 Famotidine (Famotidine) 20 Mg Tablet, (Reported) Entered as Reported by: IVON ATKINS on 07/16/182350 Gabapentin (Gabapentin) 300 Mg Capsule, (Reported) Entered as Reported by: IVON ATKINS on 07/16/182350 Isosorbide Mononitrate (Isosorbide Mononitrate ER) 30 Mg Tab.er.24h, (Reported) Entered as Reported by: IVON ATKINS on 07/16/182350 Prednisone (Prednisone) 20 Mg Tab, 20 MG PO BID Prescribed by: JENNI AVALOS on 11/07/18 1243 Simvastatin (Simvastatin) 80 Mg Tablet, (Reported) Entered as Reported by: IVON ATKINS on 07/16/182350 Sotalol HCl (Sotalol) 80 Mg Tablet, (Reported) Entered as Reported by: IVNO ATKINS on 07/16/182350 Review of Systems Constitutional: No fever EENTM: no symptoms reported Respiratory: no symptoms reported Cardiovascular: no symptoms reported Gastrointestinal: no symptoms reported Genitourinary: no symptoms reported Musculoskeletal: see HPI Skin: no symptoms reported Psychiatric/Neurological: No Symptoms Reported All Other Systems Reviewed Negative Unless Noted: Yes Past Piuagur-Jzojso-Kijnlo Hx Patient Social History Tobacco Use?: No Immunizations Up To Date Tetanus Booster (TDap): Less than 5yrs First/Initial COVID19 Vaccinat: denies Seasonal Allergies Seasonal Allergies: No Past Medical History Surgery/Hospitalization HX: Chronic Atrial Fibrillation, Watchman Procedure Summer 2020 Surgeries: Yes (BILAT KNEE ARTHROSCOPY, ULNA NERVE SURGERY, CARPAL TUNNEL R, COLONOSCOPY ) Cardiac, Coronary Stent, Pacemaker, Tonsillectomy Respiratory: Yes Sleep Apnea Currently Using CPAP: No Currently Using BIPAP: No Cardiac: Yes Angina, Atrial Fibrillation, Heart Attack, High Cholesterol, Hypertension Neurological: No Sexually Transmitted Disease: No HIV/AIDS: No Genitourinary: No Gastrointestinal: No Musculoskeletal: No Endocrine: No HEENT: No Hearing Impairment: Denies Cancer: Yes Skin Did You Recieve Any Treatments: Yes What Type of Treatment Did You: Surgical Intervention Psychosocial: No Integumentary: No Blood Disorders: No Physical Exam Vital Signs Capillary Refill : Height, Weight, BMI Height: 5'8.00" Weight: 175lbs. oz. [id number]; 30.00 BMI Method:Estimated General Appearance: WD/WN, no apparent distress HEENT: PERRL/EOMI, normal ENT inspection, pharynx normal Neck: non-tender, full range of motion, supple, normal inspection Cardiovascular: regular rate, rhythm, no edema, no murmur Respiratory: chest non-tender, lungs clear, normal breath sounds, no respiratory distress, no accessory muscle use Gastrointestinal: normal bowel sounds, non tender, soft; No distended, No guarding, No rebound Hips: bilateral hip non-tender, bilateral hip normal inspection, bilateral hip normal range of motion, bilateral hip no evidence of injury Knees: left knee bone tenderness (Left patella tenderness with some medial and lateral joint line tenderness, slightly decreased range of motion due to pain, antalgic gait); right knee soft tissue tenderness (Some bruising to the right medial hamstring near the popliteal region, normal strength of his hamstrings with no obvious tear) Ankles: bilateral ankle non-tender, bilateral ankle normal inspection, bilateral ankle normal range of motion, bilateral ankle no evidence of injury Feet: bilateral foot non-tender, bilateral foot normal inspection, bilateral foot normal range of motion, bilateral foot no evidence of injury Neurologic/Tendon: normal sensation, normal motor functions, normal tendon functions Neurologic/Psychiatric: no motor/sensory deficits, alert, normal mood/affect, oriented x 3 Skin: normal color, warm/dry Procedures/Interventions Suture Size: 6-0 Progress/Results/Core Measures Results/Orders My Orders Orders - OLIVIA BRODERICK MD Knee 3 View Left (09/20/22 07:41) Pelvis With Left Hip 2-3 View (09/20/22 07:41) Acetaminophen Tablet (Tylenol Tablet) (09/20/22 07:45) Medications Given in ED Current Medications Medications Dose Ordered Sig/Sujatha Route Start Time Stop Time Status Last Admin Dose Admin Acetaminophen 1,000 mg ONCE ONCE PO 09/20/22 07:45 09/20/22 07:46 DC 09/20/22 08:03 1,000 MG Progress Progress Note : Progress Note 72-year-old male with above history coming in due to left lower extremity pain after falling. ABCs were intact and vitals were stable on presentation. Physical exam with left knee tenderness, no significant left hip tenderness, but although he is still complaining of pain. His ankle exam is unremarkable. He has some bruising behind his right knee but full strength and no significant pain, likely has a small tear of the hamstring that is not clinically significant. No bony tenderness, therefore no x-ray of the right knee ordered. X-ray of the pelvis, left hip, left knee obtained. He did not hit his head, and he is more than 12 hours since the incident, I think it is highly unlikely he has a clinically significant head injury if any at all. Additionally, no neck or back pain on my exam. CT head, and spine not obtained because of these reasons. Considered hydrocodone for pain, however he does have to drive home after this, so gave him Tylenol. On my interpretation of the x-rays I do not see any fractures or dislocations of his knee or left hip. Patient is able to ambulate and I have a low suspicion for occult fracture that is missed on x-ray. We will give him an Vineet wrap and have him follow-up with orthopedics as an outpatient. I believe he is otherwise stable for discharge with outpatient follow-up. He was sent home with strict return precautions. Diagnostic Imaging Diagonstic Imaging: Xray (left knee, pelvis and left hip) Departure Impression Primary Impression: Contusion of left knee Qualified Codes: S80.02XA - Contusion of left knee, initial encounter Additional Impressions: Left hip pain Fall Qualified Codes: W19.XXXA - Unspecified fall, initial encounter Disposition: HOME, SELF-CARE Condition: Stable Departure-Patient Inst. Decision time for Depature: 08:20 Referrals: SHEEBA BEDOLLA DO (PCP/Family) Primary Care Physician JG BARRIOS Patient Instructions: Knee Sprain (DC) Add. Discharge Instructions: Fortunately nothing is broken or dislocated. You do have some significant bruising that will take some time to heal. If you are not having improvement after the next 1 to 2 weeks, then follow-up with an orthopedist, Wil Barrios is one option and his number is in this paperwork. Take Tylenol as needed for pain, and also ice the areas that hurt OLIVIA BRODERICK MD September 20, 2022 07:47
--- NOTE | 2022-09-20 08:12 | Diagnostic Imaging Report ---
Indication: Fall, left knee pain. The AP, oblique, and lateral views of the left knee are obtained. No fracture or acute bony abnormality seen. There is moderate tricompartmental osteoarthritic change with joint space narrowing and osteophyte formation. There is a minimal joint effusion. Impression: Degenerative changes of left knee as above with small joint effusion. No acute fracture. Dictated by: Dictated on workstation # [id number]
[2022-09-20 08:15] VITALS: BP 142/80
--- NOTE | 2022-09-20 08:20 | Diagnostic Imaging Report ---
INDICATION: Pain following fall. AP pelvis and two-view left hip performed. FINDINGS: In the frontal projection, no fracture or malalignment identified. There are arthritic changes to the bilateral hips and degenerative disease to the visible lower lumbar spine. No symphyseal or SI joint diastases. Vascular calcifications present. The bladder is midline and nondisplaced. There is a benign-appearing proximal left femoral lesion in the subtrochanteric level likely old fibrous cortical defect. On the lateral view, there is a typical projection of the base of the greater trochanter with respect to the remaining femur given the otherwise normal study this likely is projectional artifact, however given the age of the clinical index of suspicion remains moderate or high consider CT through the left hip to exclude fracture more confidently. IMPRESSION: 1. No confirmed fracture, however abnormal appearance of the lateral radiograph is of uncertain significance. CT may be of benefit if there is persistent clinical suspicion for left hip fracture. 2. No other potential acute finding. Dictated by: Dictated on workstation # [id number]
== END 2022-09-20 08:19 | disposition home or self-care (01) ==
LOC: EDUNIT# 07:26 → ER FS 07:27
DX: S80.02XA Contusion of left knee, initial encounter (principal); S80.01XA Contusion of right knee, initial encounter; M25.552 Pain in left hip; Z28.310 Unvaccinated for COVID-19; W01.0XXA Fall on same level from slipping, tripping and stumbling without subsequent striking against object, initial encounter
CPT/HCPCS: 73502; 73562